=== PATIENT | female | born 1965 | race Caucasian/White ===

== ENCOUNTER 2023-05-11 16:20 | Emergency (ER) | payer OTHER, MEDICARE, SELFPAY ==
[2023-05-11 16:57] VITALS: BP 140/52; PULSE 77; RESP 18; TEMP 36.4; O2SAT 98; BMI 22.5
--- NOTE | 2023-05-11 17:47 | PC.NURSE ---
Lou self presented to the emergency dept in the context of increased anxiety and OCD type behavior. Lou reports she has been eating very little and she thinks her current Clonazepam dose of 0.5mg PO PRN BID isn't high enough and that she used to take them TID but her doctor isn't in agreement with that dose. Lou was pleasant with changing over and has had no behavioral concerns. Medications locked in locker in sealed bag. Lou is currently resting.
--- NOTE | 2023-05-11 18:07 | PC.NURSE ---
Lou refused 1mg Ativan offered for anxiety. She would like her 0.5mg Clonazepam. MD will be called.
--- NOTE | 2023-05-11 18:16 | ED.PSYCH ---
HPI - Psych General Chief Complaint: Psychiatric Symptoms Stated Complaint: crisis Time Seen by Provider: 05/11/23 16:30 History of Present Illness HPI Narrative: Patient is a 57-year-old female with a history of anxiety depression presented today with having lots of anxiety. It is related to daily living. Patient denies any suicidal homicidal ideation. Attempted to use Klonopin but did not work. Presents to the emergency department for further evaluation. Patient denies any recreational drug use Related Data Home Medications Medication Instructions Recorded Confirmed clonazepam 0.5 mg tablet (Klonopin) 0.5 mg PO BID PRN Anxiety 05/11/23 05/11/23 escitalopram oxalate 20 mg tablet 20 mg PO DAILY 05/11/23 05/11/23 Allergies Allergy/AdvReac Type Severity Reaction Status Date / Time No Known Allergies Allergy Verified 05/11/23 16:42 Review of Systems Review of Systems: No fever no chills no chest pain Yes all other systems are reviewed and are negative PMFSH Past Medical History Source: unable to obtain Onset Date is defined in the Problem List Problems that require an onset date and time if occurred within 24 hrs of arrival to the ED Aortic Dissection and Rupture; Neurologic impairment; Cardiopulmonary Arrest; Endotracheal Intubation; Insertion or Replacement of Mechanical Circulatory Assist Device Social History Social History Advance Directives: No Advance Directives Information Provided: No Physical Exam Vital Signs: Vital Signs: Last Vital Signs Temp 97.5 F 05/11/23 16:57 Pulse 77 05/11/23 16:57 Resp 18 05/11/23 16:57 BP 140/52 H 05/11/23 16:57 Pulse Ox 98 05/11/23 16:57 O2 Del Method Room Air 05/11/23 16:57 BMI result Body Mass Index 22.5 Appearance: Alert. Oriented X3. No acute distress. Eyes: Pupils equal, round and reactive to light. ENT: Pharynx normal. Neck: Normal inspection. Neck supple. No lymph nodes noted. No crepitus CVS: Normal heart rate and rhythm. Pulses normal. Normal S1 and S2 Respiratory: No respiratory distress. Breath sounds normal. No Wheezing. No rales Abdomen: Soft and nontender. No rigidity. No distention. good BS x4 Skin: Skin warm and dry. Normal skin color. Normal skin turgor. Extremities: No lower extremity edema. Neurovascular intact to all extremities. No Lacerations. No Rash Neuro: Oriented X 3. No motor deficit. No sensory deficit. Moving all extermities. No slurred speech. Cranial nerves grossly intact Medications Administered Discontinued Medications Generic Name Dose Route Start Last Admin Trade Name Devinq PRN Reason Stop Dose Admin Lorazepam 1 mg 05/11/23 16:44 05/11/23 18:07 Lorazepam 1 Mg Tablet PO 05/11/23 16:45 Not Given ONCE ONE Medical Decision Making Medical Decision Making [facility] Narrative: Well-appearing no acute distress. Patient's labs are normal. Positive anxiety. Will get patient is evaluated by crisis. Currently in stable condition. Differential Diagnosis Anxiety depression polysubstance abuse Admission/Observation Consideration of admission/observation: Escalation of care including admission/observation considered Lab Data [facility] Lab Attestation statement: I reviewed the patient's lab results. 05/11/23 17:07 05/11/23 17:07 Labs: Lab Results 05/11/23 05/11/23 Range/Units 16:51 17:07 WBC 8.1 (4.8-10.8) X10*3/uL RBC 4.70 (4.20-5.50) X10*6/uL Hgb 14.5 (12.0-16.0) g/dl Hct 43.2 (37.0-47.0) % MCV 91.9 (80.0-98.0) fL MCH 30.9 (27.0-33.0) pg MCHC 33.6 (31.0-35.0) g/dl RDW 13.0 (11.0-16.0) % Plt Count 399 (160-400) X10*3/uL MPV 10.6 (9.4-12.3) fL Immature Gran % (Auto) 0.9 H (0.0-0.4) % Neut % (Auto) 69.3 (45-73) % Lymph % (Auto) 23.9 (20-40) % [place] % (Auto) 5.1 (2-11) % Eos % (Auto) 0.4 (0-4) % Baso % (Auto) 0.4 (0-2) % Lymph # (Auto) 1.9 (1.2-4.9) X10*3/uL [place] # (Auto) 0.4 (0.1-1.2) X10*3/uL Eos # (Auto) 0.0 (0.0-0.4) X10*3/uL Baso # (Auto) 0.0 (0.0-0.2) X10*3/uL Abs Immat Gran (auto) 0.07 H (0.00-0.03) X10*3/uL Absolute Neuts (auto) 5.6 (2.0-8.3) x10*3/uL Absolute Nucleated RBC 0.000 (0.0-0.012) X10*3/uL Nucleated RBC % (auto) 0.0 (0.0-0.2) /100WBC Sodium 143 (135-145) mmol/L Potassium 4.2 (3.3-5.1) mmol/L Chloride 106 (96-108) mmol/L Carbon Dioxide 29 (22-29) mmol/L Anion Gap 12 (12-20) BUN 20 H (9-16) mg/dL Creatinine 0.85 (0.5-1.4) mg/dL Estim Creat Clear Calc 66.5 Estimated GFR > 60 Random Glucose 81 (60-115) mg/dL Calcium 10.4 H (8.4-10.2) mg/dL Urine Color Yellow Urine Appearance Cloudy Urine pH 6.0 (5.0-9.0) Ur Specific [place] 1.015 (1.005-1.025) Urine Protein Negative (Neg-Trace) mg/dL Urine Glucose (UA) Negative (Negative) mg/dL Urine Ketones Negative (Negative) mg/dL Urine Blood Negative (Negative) Urine Nitrite Negative (Negative) Ur Leukocyte Esterase Trace H (Negative) Urine RBC 0-2 (0-2) /HPF Urine WBC 0-5 (0-5) /HPF Ur Squamous Epith Cells 11-20 (0-2) /HPF Urine Bacteria None Seen (None Seen) Hyaline Casts 0-2 (0-2) /LPF Urine Opiates Screen Not Detected (Not Detect) Urine Fentanyl Screen Not Detected (Not Detect) Ur Barbiturates Screen Not Detected (Not Detect) Ur Phencyclidine Scrn Not Detected (Not Detect) Ur Amphetamines Screen Not Detected (Not Detect) U Benzodiazepines Scrn Not Detected (Not Detect) Urine Cocaine Screen Not Detected (Not Detect) U Marijuana (THC) Screen Not Detected (Not Detect) Ethyl Alcohol < 10 mg/dL External Record Review External record reviewed: Inpatient record Chronic Conditions Anxiety depression Discharge Plan Discharge Clinical Impression: Acute anxiety Patient Disposition: Still a Patient Prescriptions: No Action clonazepam [Klonopin] 0.5 mg tablet 0.5 mg PO BID PRN (Reason: Anxiety) escitalopram oxalate 20 mg tablet 20 mg PO DAILY Interventions: [place]-Suicide Risk Severity Scale Last Done: 05/11/23 17:44
== END 2023-05-11 23:23 | disposition home or self-care (01) ==
PROVIDERS: Emergency Provider Emergency Medicine Emergency Medical Services; PCP Internal Medicine
DX: F41.9 Anxiety disorder, unspecified (principal); Z79.899 Other long term (current) drug therapy
CPT/HCPCS: 36415; 80048; 80307; 81001; 85025; 99284; S9485

== ENCOUNTER 2023-05-17 14:02 | Emergency (ER) | payer OTHER, MEDICARE, SELFPAY ==
--- NOTE | 2023-05-17 14:09 | ED_ITS ---
HPI - General Adult General Chief complaint: Psychiatric Symptoms Stated complaint: SI Depression Time Seen by Provider: 05/17/23 14:07 Source: patient Mode of arrival: ambulatory History of Present Illness HPI narrative: 57 yr old female with a history of anxiety, depression and OCD presenting with increased anxiety and OCD symptoms. Patient states that her anxiety has been uncontrolled for the last year. This morning she felt increased anxiety with palpatations. She reached out to a friend to see if she could go over to their house, but the friend refused, causing the patient to come to the ER. She reports that she has a history of depression and disordered eating that had been well controlled up until one year ago. Last year the patient experienced various health issues including a hip replacement, divorce from her of 22 years, a strained relationship with her daughter and the of her cat. Since then the patient has been on Klonapin and Prozac which had managed her symptoms in the past, but failed in this last year. Patient was switched to Lexapro 2 months ago, and reduced to twice a day dosing from three times per day of her Klonapin, and states that her symptoms are still uncontrolled. She has a therapist that she had been seeing regularly up until 1 month ago, but states they are not helping and she stopped going. Patient reports that she sleeps through the night, but will stay in bed longer than she should to avoid the anxiety she feels in the morning. Patient denies SI/HI, fever, chest pain, SOB, nausea, vomiting or constipation. Patient is a daily pack a day smoker. Denies alcohol or illicit drug use. Patient was last seen in the ED for anxiety on 05/11/23 for anxiety and was provided resources for a new therapist at that time. Patient states that she feels that her anxiety is preventing her from being able to take care of herself. Related Data Home Medications Medication Instructions Recorded Confirmed clonazepam 0.5 mg tablet (Klonopin) 0.5 mg PO BID PRN Anxiety 05/11/23 05/17/23 escitalopram oxalate 20 mg tablet 20 mg PO DAILY 05/11/23 05/17/23 Allergies Allergy/AdvReac Type Severity Reaction Status Date / Time No Known Allergies Allergy Verified 05/17/23 18:37 Review of Systems 2 Review of Systems: Constitutional : No Weight loss, No Fever, No Chills, No Fatigue, No Malaise Cardiovascular : No Chest Pain, No SOB, No Dyspnea on Exertion, No Orthopnea, No Edema, No Palpitations Respiratory : No Cough, No Sputum, No Wheezing Gastrointestinal : + diarrhea. No Nausea, No Vomiting No Constipation, No abdominal Pain, No Hematochezia, No Melena Genitourinary : No Dysuria, No Urinary Frequency, No Hematuria, Musculoskeletal : No joint pain, No Myalgias, No Joint Swelling Skin : No Skin Lesions, No rash Neuro : No Weakness, No Numbness, No Dizziness, No Headache Psych : +anxiety, depression. No suicidal ideation or homicidal ideation Heme/Lymph: No Bruising, No Bleeding,No Lymphadenopathy All other systems reviewed and are negative Yes all other systems are reviewed and are negative [facility] Past Medical History Attestation statement: The following information was validated with the patient. Source: old records reviewed and nursing notes reviewed Onset Date is defined in the Problem List Problems that require an onset date and time if occurred within 24 hrs of arrival to the ED Aortic Dissection and Rupture; Neurologic impairment; Cardiopulmonary Arrest; Endotracheal Intubation; Insertion or Replacement of Mechanical Circulatory Assist Device Social History Social History Smoked in Last 30 Days: Yes Use of substances other than those prescribed or required for medical reasons: No Advance Directives: No Patient : No Physical Exam ED Vital Signs: Vital Signs - 24 hr 05/17/23 14:33 05/17/23 17:37 Temperature 97.6 F Pulse Rate 81 Respiratory Rate 16 12 Blood Pressure 135/63 Pulse Oximetry 97 Oxygen Delivery Method Room Air BMI result Body Mass Index 22.5 vss Appearance: Alert.? Oriented X3.? No acute distress.? Head: Normocephalic, atraumatic, no step-offs or deformities Eyes: Pupils equal, round and reactive to light.? ENT: Pharynx normal.??External ears normal, TMs normal bilaterally and EAC's normal. No pain with manipulation of external ears bilaterally. No mastoid tenderness. Neck: Normal inspection.? Neck supple.? CVS: Normal heart rate and rhythm.? Pulses normal.? Respiratory: No respiratory distress.? Breath sounds normal.? Abdomen: Soft and nontender.? Skin: Skin warm and dry.? Normal skin color.? Normal skin turgor.? Extremities: No lower extremity edema.? No calf ttp. 5/5 strength to bilateral upper and lower extremities Back: No midline tenderness, no C-spine tenderness, full range of motion, no CVA tenderness bilaterally Neuro: Oriented X 3.? No motor deficit.? No sensory deficit. CN 2-12 intact Psych: Speech and movement normal. Anxious affect. Cooperative attitude. Normal thought process. No delusions, SI/HI. Insight and judgment are fair. Course Reevaluation(s) Reevaluation #1: CBC unremarkable. Chemistry no acute findings. UA clean. U tox clean. Etthanol negative. COVID negative. Time: 16:23 Reevaluation #2: I did re-evaluate patient she does now report intermittent suicidal thoughts. Patient to be seen by care team. She should not leave until she is seen by them. Time: 16:30 Reevaluation #3: Patient was seen by the care team. Patient was seen here last week and was given extensive list of outpatient referrals. Care team also discussed other options including voluntary inpatient psychiatric services, outpatient, or respit, patient refused all resources and will follow-up outpatient. She has no SI or HI. She has no acute risk per care team. Patient stable for discharge. Time: 19:32 Medications Administered Generic Name Dose Route Start Last Admin Trade Name Freq PRN Reason Stop Dose Admin Clonazepam 0.5 mg 05/17/23 18:46 05/17/23 19:25 Clonazepam 0.5 Mg Tablet PO 0.5 mg BID PRN Administration Anxiety Medical Decision Making Medical Decision Making [facility] Narrative: 57 yr old female with a history of anxiety and depression presenting with increased anxiety. PE significant for anxiety, depression, and obsessive behaviors. Most likely panic vs anxiety vs depression. Low suspicion for metabolic derangements or cardiac etiology. And medical clearance evaluation by behavioral health team Differential Diagnosis Differential Diagnoses: The differential diagnosis associated with the presentation includes Most likely panic vs anxiety vs depression. Low suspicion for metabolic derangements or cardiac etiology. Admission/Observation Consideration of admission/observation: Escalation of care including admission/observation considered Consult Healthcare Provider Management of the patient was discussed with: Behavioral Health Provider Lab Data [facility] Lab Attestation statement: I reviewed the patient's lab results. CBC and CMP within normal limits. UA negative. Urine tox negative. 05/17/23 14:53 01/09/24 14:53 Labs: Lab Results 05/17/23 05/17/23 Range/Units 14:29 14:53 WBC 8.1 (4.8-10.8) X10*3/uL RBC 4.58 (4.20-5.50) X10*6/uL Hgb 14.1 (12.0-16.0) g/dl Hct 42.1 (37.0-47.0) % MCV 91.9 (80.0-98.0) fL MCH 30.8 (27.0-33.0) pg MCHC 33.5 (31.0-35.0) g/dl RDW 12.8 (11.0-16.0) % Plt Count 351 (160-400) X10*3/uL MPV 10.3 (9.4-12.3) fL Immature Gran % (Auto) 0.2 (0.0-0.4) % Neut % (Auto) 72.6 (45-73) % Lymph % (Auto) 21.5 (20-40) % [place] % (Auto) 5.3 (2-11) % Eos % (Auto) 0.2 (0-4) % Baso % (Auto) 0.2 (0-2) % Lymph # (Auto) 1.7 (1.2-4.9) X10*3/uL [place] # (Auto) 0.4 (0.1-1.2) X10*3/uL Eos # (Auto) 0.0 (0.0-0.4) X10*3/uL Baso # (Auto) 0.0 (0.0-0.2) X10*3/uL Abs Immat Gran (auto) 0.02 (0.00-0.03) X10*3/uL Absolute Neuts (auto) 5.8 (2.0-8.3) x10*3/uL Absolute Nucleated RBC 0.000 (0.0-0.012) X10*3/uL Nucleated RBC % (auto) 0.0 (0.0-0.2) /100WBC Sodium 141 (135-145) mmol/L Potassium 4.1 (3.3-5.1) mmol/L Chloride 107 (96-108) mmol/L Carbon Dioxide 28 (22-29) mmol/L Anion Gap 10 L (12-20) BUN 19 H (9-16) mg/dL Creatinine 0.81 (0.5-1.4) mg/dL Estim Creat Clear Calc 69.7 Estimated GFR > 60 Random Glucose 104 (60-115) mg/dL Lactic Acid 1.1 (0.5-2.0) mmol/L Calcium 10.0 (8.4-10.2) mg/dL Magnesium 2.1 (1.6-2.6) mg/dL Total Bilirubin 0.3 (0.0-1.0) mg/dL AST 19 (5-31) U/L ALT 15 (0-31) U/L Alkaline Phosphatase 65 (39-117) U/L Total Protein 7.7 (6.5-8.0) g/dL Albumin 4.4 (3.5-5.0) g/dL Urine Color Yellow Urine Appearance Clear Urine pH 6.0 (5.0-9.0) Ur Specific [place] 1.020 (1.005-1.025) Urine Protein Negative (Neg-Trace) mg/dL Urine Glucose (UA) Negative (Negative) mg/dL Urine Ketones Negative (Negative) mg/dL Urine Blood Negative (Negative) Urine Nitrite Negative (Negative) Ur Leukocyte Esterase Negative (Negative) Urine Opiates Screen Not Detected (Not Detect) Urine Fentanyl Screen Not Detected (Not Detect) Ur Barbiturates Screen Not Detected (Not Detect) Ur Phencyclidine Scrn Not Detected (Not Detect) Ur Amphetamines Screen Not Detected (Not Detect) U Benzodiazepines Scrn Not Detected (Not Detect) Urine Cocaine Screen Not Detected (Not Detect) U Marijuana (THC) Screen Not Detected (Not Detect) Ethyl Alcohol < 10 mg/dL COVID-19 ([facility]) Negative (Negative) COVID-19 Clin Com See Note External Record Review External record reviewed: Inpatient record Critical Care Time Critical Care Time Critical Care Time: No Discharge Plan Discharge Clinical Impression: Acute anxiety, Depression Patient Disposition: Still a Patient Additional Instructions: Please continue working with your psychiatrist. Please utilize all resources that were provided to you by the crisis and care team. Please continue taking all your prescribed medications. If any new or worsening symptoms occur including but not limited to chest pain, shortness of breath, thoughts of harming herself or others, please return to the emergency room. Prescriptions: No Action clonazepam [Klonopin] 0.5 mg tablet 0.5 mg PO BID PRN (Reason: Anxiety) escitalopram oxalate 20 mg tablet 20 mg PO DAILY Interventions: [place]-Suicide Risk Severity Scale Last Done: 05/17/23 14:39
[2023-05-17 14:33] VITALS: BP 135/63; PULSE 81; RESP 16; TEMP 36.4; O2SAT 97; BMI 22.5
[2023-05-17 14:36] LABS: Appearance Urine Clear; Color Urine Yellow; Glucose Urine UA Negative (Negative); Leukocyte Esterase Urine Negative (Negative); Nitrite Urine Negative (Negative); Urine Blood Negative (Negative); Urine Ketones Negative (Negative); Urine Protein Negative (Neg-Trace)
[2023-05-17 14:44] LABS: Amphetamine Screen Urine Not Detected (Not Detect); Barbiturates, Urine Not Detected (Not Detect); Benzodiazepines Screen Urine Not Detected (Not Detect); Cannabinoid Screen Urine Not Detected (Not Detect); Cocaine Screen Urine Not Detected (Not Detect); Fentanyl, urine Not Detected (Not Detect); Opiate Screen Urine Not Detected (Not Detect); Phencyclidine Screen Urine Not Detected (Not Detect)
[2023-05-17 14:58] LABS: MANUAL DIFF FLAG NO
[2023-05-17 15:01] LABS: Basophils Percent Auto 0.2 % (0-2); Eosinophils Percent Auto 0.2 % (0-4); Hematocrit 42.1 % (37.0-47.0); Hemoglobin 14.1 g/dl (12.0-16.0); Imm Gran Abs Auto 0.02 X10*3/uL (0.00-0.03); Imm Gran Pct Auto 0.2 % (0.0-0.4); Lymphocytes Absolute Auto 1.7 X10*3/uL (1.2-4.9); Lymphocytes Percent Auto 21.5 % (20-40); Mean Corpuscular HGB Conc 33.5 g/dl (31.0-35.0); Mean Corpuscular Hemoglobin 30.8 pg (27.0-33.0); Mean Corpuscular Volume 91.9 fL (80.0-98.0); Mean Platelet Volume 10.3 fL (9.4-12.3); Monocytes Absolute Auto 0.4 X10*3/uL (0.1-1.2); Monocytes Percent Auto 5.3 % (2-11); Neutrophils Absolute Auto 5.8 x10*3/uL (2.0-8.3); Neutrophils Percent Auto 72.6 % (45-73); Platelet Count 351 X10*3/uL (160-400); Red Blood Count 4.58 X10*6/uL (4.20-5.50); Red Cell Distribution Width 12.8 % (11.0-16.0); White Blood Count 8.1 X10*3/uL (4.8-10.8)
[2023-05-17 15:14] LABS: Lactic Acid 1.1 mmol/L (0.5-2.0)
[2023-05-17 15:20] LABS: COVID-19 Test Negative (Negative); IDNOW Serial# 08D9AD1C
[2023-05-17 15:22] LABS: Alanine Aminotransferase 15 U/L (0-31); Albumin Level 4.4 g/dL (3.5-5.0); Alkaline Phosphatase 65 U/L (39-117); Anion Gap 10 (12-20); Aspartate Amino Transferase 19 U/L (5-31); Bilirubin Total 0.3 mg/dL (0.0-1.0); Blood Urea Nitrogen 19 mg/dL (9-16); Carbon Dioxide 28 mmol/L (22-29); Chloride 107 mmol/L (96-108); Creatinine Clr Calc Pharmacy 69.7; Estimated Glomerular Filt Rate > 60; Ethanol < 10 mg/dL; Glucose Random 104 mg/dL (60-115); Magnesium 2.1 mg/dL (1.6-2.6); Potassium 4.1 mmol/L (3.3-5.1); Sodium 141 mmol/L (135-145); Total Protein 7.7 g/dL (6.5-8.0)
[2023-05-17 17:37] VITALS: RESP 12
--- NOTE | 2023-05-17 19:08 | PC.NURSE ---
patient appears to remain relaxing at present respirations are even and unlabored patient appears in no distress, upon arrival to the unit patient seated in milieu.
[2023-05-17] MEDS: clonazePAM 0.5 MG TABLET PO (19:25)
== END 2023-05-17 20:08 | disposition home or self-care (01) ==
PROVIDERS: Physician Assistant; Emergency Provider Emergency Medicine Emergency Medical Services; PCP Internal Medicine
DX: F33.1 Major depressive disorder, recurrent, moderate (principal); R45.851 Suicidal ideations; F41.1 Generalized anxiety disorder; F43.0 Acute stress reaction; Z79.899 Other long term (current) drug therapy; Z11.52 Encounter for screening for COVID-19; Z20.822 Contact with and (suspected) exposure to COVID-19
CPT/HCPCS: 36415; 80053; 80307; 81003; 83605; 83735; 85025; 87635; 99285; S9485

== ENCOUNTER 2023-07-17 14:55 | Inpatient (IN) | payer OTHER, SELFPAY ==
[2023-07-17 15:01] VITALS: BP 141/46; PULSE 77; RESP 16; TEMP 36.6; O2SAT 95
[2023-07-17 15:03] VITALS: BP 136/70; BP 141/76; PULSE 71; PULSE 81; RESP 16; TEMP 36.6; O2SAT 95; O2SAT 98; BMI 22.5
--- NOTE | 2023-07-17 15:14 | PC.NURSE ---
Patient presents to the ED today requesting help with medications. She reports she feels as though her medications are not working and therefore is having increasing suicidal thoughts. Pt denies plan at this time. Patient reports she is on Clonazepam and Prozac, she reports she just started the Prozac recently but has been on the Clonazepam for a while. She feels as thought the Clonazepam is no longer working. Patient denies medical concerns at this time, respirations are even and unlabored, skin pwd, alert and oriented x4, ambulating with steady gait around BH pod at this time
--- NOTE | 2023-07-17 15:35 | ED_ITS ---
HPI - Psych General Chief Complaint: Psychiatric Symptoms Stated Complaint: SI THOUGHTS,NO PLAN PER EMS Time Seen by Provider: 07/17/23 15:07 Source: patient Mode of arrival: EMS Limitations: no limitations History of Present Illness HPI Narrative: Patient is a 58-year-old female who presents emergency department for evaluation of increasing anxiety, depression, OCD type behaviors. Endorsing suicidal ideations without any specific plan. She expresses feeling frustrated no overall defeated waking up daily feeling this way. She does not feel as though her medications are helping, she has had recent dosage changes reports that she is taking clonazepam 0.5 mg twice a day, escitalopram 20 mg daily, fluoxetine 20 mg daily with psychiatrist La Jara. She expresses frustration that her psychiatrist will not prescribe her clonazepam 3 times daily, she states that she was taking it 3 times daily in the past and felt that this did help her symptoms. She does report that she was seen in this emergency department in May 2023 and has since been evaluated by and [facility] a couple of times but feels as though nothing is improving. She denies any homicidal ideations, hallucinations, drug or alcohol usage. Related Data Home Medications Medication Instructions Recorded Confirmed clonazepam 0.5 mg tablet (Klonopin) 0.5 mg PO BID PRN Anxiety 05/11/23 07/17/23 fluoxetine 20 mg capsule 20 mg PO DAILY 07/17/23 07/17/23 Allergies Allergy/AdvReac Type Severity Reaction Status Date / Time No Known Allergies Allergy Verified 07/17/23 15:13 Review of Systems 2 Review of Systems: Yes all other systems are reviewed and are negative [facility] Past Medical History Attestation statement: The following information was validated with the patient. Source: old records reviewed Family History Family History (Updated 07/17/23 @ 20:29 by BRADLEY Rowe) Brother Bipolar disorder, unspecified Psychosis Social History Social History (Updated 07/17/23 @ 20:31 by BRADLEY Rowe) Alcohol intake: never Smoked in Last 30 Days: Yes Use of substances other than those prescribed or required for medical reasons: No Advance Directives: No Advance Directives Information Provided: No Suicidal Behavior: Pre-occupation with and Self-injurious behavior Current/Past Psychiatric Disorders: PTSD Joseph Symptoms: Anxiety, Hopelessness, Impulsivity, Panic and Worthlessness Access to Firearms: No Eating poorly because of decreased appetite: Yes Patient : No Current occupational status: unemployed Gender identity: Female Physical Exam 2 Vital Signs: Vital Signs: Last Vital Signs Temp 97.4 F 07/18/23 05:21 Pulse 62 07/18/23 05:21 Resp 16 07/18/23 05:21 BP 136/69 07/18/23 05:21 Pulse Ox 95 07/18/23 05:21 O2 Del Method Room Air 07/18/23 05:21 BMI result Body Mass Index 22.5 Appearance: Alert.?Oriented to person, place and time. No acute distress.?Normal affect. Eyes: Pupils equal, round and reactive to light.? ENT: Pharynx normal.?? Neck: Normal inspection.? Neck supple.?? CVS: Heart sounds normal. Normal heart rate and rhythm.? Pulses normal.?? Respiratory: No respiratory distress.? Lung sounds clear to auscultation bilaterally?? Abdomen: Soft and non-tender. Normoactive bowel sounds. ? Skin: Skin warm and dry.? Normal skin color.? Extremities: No lower extremity edema.? No calf ttp? Neuro: Moves all extremities spontaneously. Sensation intact bilaterally. CN II- XII intact. No focal neuro deficits. Ambulates with normal steady gait. Course Reevaluation(s) Reevaluation #1: Physician observation continued. VS stable, no acute events overnight, inpatient bed search. Medications Administered Generic Name Dose Route Start Last Admin Trade Name Freq PRN Reason Stop Dose Admin Clonazepam 0.5 mg 07/17/23 19:28 07/17/23 19:32 Clonazepam 0.5 Mg Tablet PO 0.5 mg BID PRN Administration Anxiety Fluoxetine HCl 20 mg 07/18/23 09:00 07/18/23 08:16 Fluoxetine Hcl 20 Mg Capsule PO 20 mg DAILY KIMI Administration Discontinued Medications Generic Name Dose Route Start Last Admin Trade Name Freq PRN Reason Stop Dose Admin Nicotine 21 mg 07/17/23 19:28 07/17/23 19:32 Nicotine 21 Mg Patch.Td24 TRANSDERMA 07/17/23 19:29 21 mg ONCE ONE Administration Medical Decision Making Medical Decision Making MDM Narrative: Patient is a 58-year-old female past medical history anxiety, depression, OCD, presenting to the emergency department for evaluation suicidal ideations without any specific. Denies any acute changes life stressors but just feels exhausted of waking up daily feeling suicidal and does not pose a her medications are helping her. She is calm and cooperative at the time my examination, denying homicidal ideations or hallucinations. Reports that she has been compliant with the current medication regimen continues to feel this way. Plan to obtain basic labs for medical clearance, and she will be placed in physician observation with the care team evaluation can ensue determination as to whether inpatient psychiatric services and be warranted at this time. 19:00: Patient was evaluated by the care team. Recommendations: Inpatient bed search patient is on a Section 12. Differential Diagnosis Differential Diagnoses: The differential diagnosis associated with the presentation includes (Anxiety, depression, OCD, suicidal ideation) Admission/Observation Consideration of admission/observation: Escalation of care including admission/observation considered (See narrative above) Consult Healthcare Provider Management of the patient was discussed with: Behavioral Health Provider (Care team) Lab Data MDM Lab Attestation statement: I reviewed the patient's lab results. No leukocytosis or anemia, unremarkable CBC. CMP overall unremarkable. 07/17/23 15:40 07/17/23 15:40 Labs: Lab Results 07/17/23 07/17/23 Range/Units 15:40 17:12 WBC 7.6 (4.8-10.8) X10*3/uL RBC 4.50 (4.20-5.50) X10*6/uL Hgb 14.0 (12.0-16.0) g/dl Hct 40.8 (37.0-47.0) % MCV 90.7 (80.0-98.0) fL MCH 31.1 (27.0-33.0) pg MCHC 34.3 (31.0-35.0) g/dl RDW 13.0 (11.0-16.0) % Plt Count 330 (160-400) X10*3/uL MPV 10.3 (9.4-12.3) fL Immature Gran % (Auto) 0.3 (0.0-0.4) % Neut % (Auto) 66.9 (45-73) % Lymph % (Auto) 24.7 (20-40) % [place] % (Auto) 7.3 (2-11) % Eos % (Auto) 0.4 (0-4) % Baso % (Auto) 0.4 (0-2) % Lymph # (Auto) 1.9 (1.2-4.9) X10*3/uL [place] # (Auto) 0.6 (0.1-1.2) X10*3/uL Eos # (Auto) 0.0 (0.0-0.4) X10*3/uL Baso # (Auto) 0.0 (0.0-0.2) X10*3/uL Abs Immat Gran (auto) 0.02 (0.00-0.03) X10*3/uL Absolute Neuts (auto) 5.1 (2.0-8.3) x10*3/uL Absolute Nucleated RBC 0.000 (0.0-0.012) X10*3/uL Nucleated RBC % (auto) 0.0 (0.0-0.2) /100WBC Sodium 143 (135-145) mmol/L Potassium 4.0 (3.3-5.1) mmol/L Chloride 107 (96-108) mmol/L Carbon Dioxide 26 (22-29) mmol/L Anion Gap 14 (12-20) BUN 21 H (9-16) mg/dL Creatinine 0.80 (0.5-1.4) mg/dL Estim Creat Clear Calc 69.8 Estimated GFR > 60 Random Glucose 99 (60-115) mg/dL Calcium 9.9 (8.4-10.2) mg/dL Total Bilirubin 0.4 (0.0-1.0) mg/dL AST 19 (5-31) U/L ALT 17 (0-31) U/L Alkaline Phosphatase 66 (39-117) U/L Total Protein 7.2 (6.5-8.0) g/dL Albumin 4.2 (3.5-5.0) g/dL Urine Color Yellow Urine Appearance Cloudy Urine pH 7.0 (5.0-9.0) Ur Specific [place] 1.020 (1.005-1.025) Urine Protein Negative (Neg-Trace) mg/dL Urine Glucose (UA) Negative (Negative) mg/dL Urine Ketones Negative (Negative) mg/dL Urine Blood Negative (Negative) Urine Nitrite Negative (Negative) Ur Leukocyte Esterase Moderate (2+) H (Negative) Urine RBC 0-2 (0-2) /HPF Urine WBC 0-5 (0-5) /HPF Ur Squamous Epith Cells >20 (0-2) /HPF Urine Bacteria Trace (None Seen) Hyaline Casts 0-2 (0-2) /LPF Urine Opiates Screen Not Detected (Not Detect) Urine Fentanyl Screen Not Detected (Not Detect) Ur Barbiturates Screen Not Detected (Not Detect) Ur Phencyclidine Scrn Not Detected (Not Detect) Ur Amphetamines Screen Not Detected (Not Detect) U Benzodiazepines Scrn Not Detected (Not Detect) Urine Cocaine Screen Not Detected (Not Detect) U Marijuana (THC) Screen Not Detected (Not Detect) Ethyl Alcohol < 10 mg/dL COVID-19 (VIKTOR) Negative (Negative) COVID-19 Clin Com See Note Independent Historian Clinical information obtained from an independent historian. History obtained from or confirmed by: EMS Discharge Plan Discharge Clinical Impression: Suicidal ideation Patient Disposition: Still a Patient Prescriptions: No Action clonazepam [Klonopin] 0.5 mg tablet 0.5 mg PO BID PRN (Reason: Anxiety) fluoxetine 20 mg capsule 20 mg PO DAILY Interventions: [place]-Suicide Risk Severity Scale Last Done: 07/18/23 07:00
[2023-07-17 15:44] LABS: MANUAL DIFF FLAG NO
[2023-07-17 15:46] LABS: Basophils Percent Auto 0.4 % (0-2); Eosinophils Percent Auto 0.4 % (0-4); Hematocrit 40.8 % (37.0-47.0); Imm Gran Abs Auto 0.02 X10*3/uL (0.00-0.03); Imm Gran Pct Auto 0.3 % (0.0-0.4); Lymphocytes Absolute Auto 1.9 X10*3/uL (1.2-4.9); Lymphocytes Percent Auto 24.7 % (20-40); Mean Corpuscular HGB Conc 34.3 g/dl (31.0-35.0); Mean Corpuscular Hemoglobin 31.1 pg (27.0-33.0); Mean Corpuscular Volume 90.7 fL (80.0-98.0); Mean Platelet Volume 10.3 fL (9.4-12.3); Monocytes Absolute Auto 0.6 X10*3/uL (0.1-1.2); Monocytes Percent Auto 7.3 % (2-11); Neutrophils Absolute Auto 5.1 x10*3/uL (2.0-8.3); Neutrophils Percent Auto 66.9 % (45-73); Platelet Count 330 X10*3/uL (160-400); White Blood Count 7.6 X10*3/uL (4.8-10.8)
[2023-07-17 16:06] LABS: Alanine Aminotransferase 17 U/L (0-31); Albumin Level 4.2 g/dL (3.5-5.0); Alkaline Phosphatase 66 U/L (39-117); Anion Gap 14 (12-20); Aspartate Amino Transferase 19 U/L (5-31); Bilirubin Total 0.4 mg/dL (0.0-1.0); Blood Urea Nitrogen 21 mg/dL (9-16); Calcium 9.9 mg/dL (8.4-10.2); Carbon Dioxide 26 mmol/L (22-29); Chloride 107 mmol/L (96-108); Creatinine Clr Calc Pharmacy 69.8; Estimated Glomerular Filt Rate > 60; Ethanol < 10 mg/dL; Glucose Random 99 mg/dL (60-115); Sodium 143 mmol/L (135-145); Total Protein 7.2 g/dL (6.5-8.0)
[2023-07-17 16:16] LABS: COVID-19 Test Negative (Negative); IDNOW Serial# 08D9AD1C
[2023-07-17 17:19] LABS: Appearance Urine Cloudy; Color Urine Yellow; Glucose Urine UA Negative (Negative); Leukocyte Esterase Urine Moderate (2+) (Negative); Nitrite Urine Negative (Negative); UMIC TRIGGER UACC YES; Urine Blood Negative (Negative); Urine Ketones Negative (Negative); Urine Protein Negative (Neg-Trace)
[2023-07-17 17:25] LABS: Amphetamine Screen Urine Not Detected (Not Detect); Bacteria Urine Trace (None Seen); Barbiturates, Urine Not Detected (Not Detect); Benzodiazepines Screen Urine Not Detected (Not Detect); Cannabinoid Screen Urine Not Detected (Not Detect); Cocaine Screen Urine Not Detected (Not Detect); Fentanyl, urine Not Detected (Not Detect); Hyaline Casts Urine 0-2 /LPF (0-2); Opiate Screen Urine Not Detected (Not Detect); Phencyclidine Screen Urine Not Detected (Not Detect); RBC Urine 0-2 /HPF (0-2); Squamous Epithelial Cell Urine >20 /HPF (0-2); WBC Urine 0-5 /HPF (0-5)
[2023-07-17] MEDS: clonazePAM 0.5 MG TABLET PO (19:32)
[2023-07-17] MEDS: Nicotine 21 MG PATCH.TD24 TRANSDERMA (19:32)
--- NOTE | 2023-07-17 20:43 | MHC.CARE ---
CARE Team evaluation complete. Pt is an inpatient bedsearch. Pt is agreeable to this plan and is on a section 12A for safety. ED provider and POD RN are aware of disposition.
--- NOTE | 2023-07-17 21:24 | PC.NURSE ---
patient appeared in no distress soon after t/w arrived to unit, requested a nicotine patch and soon thereafter adjourned to couch to relax.
--- NOTE | 2023-07-18 | ECG_ITS ---
Test Reason : MEDICAL CLEARENCE Blood Pressure : / mmHG Vent. Rate : 063 BPM Atrial Rate : 063 BPM P-R Int : 140 ms QRS Dur : 080 ms QT Int : 428 ms P-R-T Axes : -01 103 055 degrees QTc Int : 437 ms Normal sinus rhythm Rightward axis Cannot rule out Anterior infarct , age undetermined Abnormal ECG No previous ECGs available Referred By: Alyson Gomez Electronically Signed By:TROY JANE MD
[2023-07-18 05:21] VITALS: BP 136/69; PULSE 62; RESP 16; TEMP 36.3; O2SAT 95
--- NOTE | 2023-07-18 07:02 | PC.NURSE ---
Assumed care of patient at 0645, patient appears to be sleeping, respirations even and unlabored, no apparent distress noted. Continue plan of care for Sec 12, inpt bedsearch
[2023-07-18] MEDS: FLUoxetine HCl 20 MG CAPSULE PO (08:16)
[2023-07-18] MEDS: clonazePAM 0.5 MG TABLET PO ×2 (09:43→20:04)
[2023-07-18] MEDS: Nicotine 21 MG PATCH.TD24 TRANSDERMA (10:47)
[2023-07-18 14:45] VITALS: BP 142/68; PULSE 62; RESP 16; TEMP 36.4; O2SAT 100
[2023-07-18 14:46] VITALS: BMI 22.5
--- NOTE | 2023-07-18 16:13 | MHC.CLN ---
NUTRITION CONSULT FOR REPORTED POOR APPETITE X ONE MONTH, TAKING SUPPLEMENTS ONLY. DIET=REGULAR. INCREASING SUPPLEMENT TO ENSURE TID. PROVIDES 10[address], [address] TO MONITOR FOR PO INTAKE OF MEALS AND SUPPLEMENT.
[2023-07-18] MEDS: hydrOXYzine HCL 25 MG TABLET PO (16:17)
--- NOTE | 2023-07-18 18:25 | PC.ADMIT ---
Loni was admitted to from [facility] ED on 07/18/23 at 14:28 on a CV for the treatment of anxiety and depression. She reports her anxiety has been getting worse and nothing is helping . She reports being started on prozac by her outpatient provider approximately one week ago. She is alert and oriented to person, place, date, and situation. She was cooperative overall with admission process. She made repetitive hand gestures throughout the admission and stated I have OCD . She denies ETOH and substance use. She states she smokes approximately 1.5 packs cigarettes/day. Loni states that over the past two years she has gotten a divorce, moved, lost many family members and a cat, and not been able to work secondary to her mental health issues. She was placed on 5 minute checks for safety.
[2023-07-18 20:00] VITALS: BP 137/72; PULSE 76; RESP 18; TEMP 37; O2SAT 98
[2023-07-19 08:00] LABS: Alanine Aminotransferase 18 U/L (0-31); Albumin Level 3.9 g/dL (3.5-5.0); Alkaline Phosphatase 64 U/L (39-117); Anion Gap 10 (12-20); Aspartate Amino Transferase 24 U/L (5-31); Bilirubin Total 0.6 mg/dL (0.0-1.0); Blood Urea Nitrogen 16 mg/dL (9-16); Calcium 9.5 mg/dL (8.4-10.2); Carbon Dioxide 29 mmol/L (22-29); Chloride 107 mmol/L (96-108); Cholesterol 273 mg/dL (<200); Creatinine Clr Calc Pharmacy 68.9; Estimated Glomerular Filt Rate > 60; Glucose Fasting 75 mg/dL (60-99); HDL Cholesterol 45 mg/dL (>40); LDL Cholesterol Calculated 206 mg/dL (<100); Potassium 4.3 mmol/L (3.3-5.1); Sodium 142 mmol/L (135-145); Total Protein 6.7 g/dL (6.5-8.0); Triglycerides 114 mg/dL (<150)
[2023-07-19 08:18] LABS: Estimated Average Glucose 105 mg/dL; Hemoglobin A1c % 5.3 % (<6.0)
[2023-07-19 08:28] LABS: Folate 14.2 ng/mL (> or = 4.0); Vitamin B12 717 pg/mL (200-900)
[2023-07-19 08:29] VITALS: BP 124/61; PULSE 58; RESP 16; TEMP 36; O2SAT 95
--- NOTE | 2023-07-19 08:40 | HO.PSYADMNOT ---
HPI Date of Service: 07/19/23 Chief Complaint: ANXIETY Sources of Information: patient interviewed, chart reviewed and crisis/core team assessment reviewed HPI Subjective Notes: Crook Warning (given and shows understanding), Conditional Voluntary and 3 Day Narrative: Ms. Vera is a 58 year old woman who self presented to [facility] ED reporting increase anxious mood, restless, ocd, affecting her ability to function and causing significant distress. She denied SI/HI. Utox was negative. On the unit, pt presents as restless, somewhat irritable. She describes urges to move her eyebrows with periods of blinking, tapping fingers and moving wrist. She describes an urge to do these movement and is able to suppress them temporarily but suppression leads to increase urges to do the movement. Pt reports feeling embarrassed at times doing the movement in public. 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 She reports increased anxious mood. She also reports depressed mood in setting in multiple stressors including financial, lack of social supports and recent losses in her life. She denies suicidal or homicidal ideation. She denies hx of or current visual or auditory hallucinations. No signs of delusions. She denies hx of suicide attempts. Past Psychiatric History: Inpt: none prior OP: La Jara NP. Past medication trials: prozac, clonazepam. Medical Evaluation Reviewed: Yes PMF Social History: Pt is . No children. She lives alone. 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 Substance History: pt reports remote history of cocaine use Pt reports alcohol use until few years ago She denies opioid use Trauma History: not disclose Diagnostics Vital Signs (24Hr): Vital Signs - 24 hr 07/18/23 14:45 07/18/23 20:00 07/19/23 08:29 Temperature 97.5 F 98.6 F 96.8 F Pulse Rate 62 76 58 Respiratory Rate 16 18 16 Blood Pressure 142/68 H 137/72 124/61 Pulse Oximetry 100 98 95 Oxygen Delivery Method Room Air Room Air Room Air BMI result Body Mass Index 22.5 Labs 07/17/23 15:40 07/19/23 07:22 Labs: Laboratory Results - last 48 hr 07/17/23 07/17/23 07/19/23 15:40 17:12 07:22 WBC 7.6 RBC 4.50 Hgb 14.0 Hct 40.8 MCV 90.7 MCH 31.1 MCHC 34.3 RDW 13.0 Plt Count 330 MPV 10.3 Immature Gran % (Auto) 0.3 Neut % (Auto) 66.9 Lymph % (Auto) 24.7 Delta % (Auto) 7.3 Eos % (Auto) 0.4 Baso % (Auto) 0.4 Lymph # (Auto) 1.9 [place] # (Auto) 0.6 Eos # (Auto) 0.0 Baso # (Auto) 0.0 Abs Immat Gran (auto) 0.02 Absolute Neuts (auto) 5.1 Absolute Nucleated RBC 0.000 Nucleated RBC % (auto) 0.0 Sodium 143 142 Potassium 4.0 4.3 Chloride 107 107 Carbon Dioxide 26 29 Anion Gap 14 10 L BUN 21 H 16 Creatinine 0.80 0.81 Estim Creat Clear Calc 69.8 68.9 Estimated GFR > 60 > 60 Random Glucose 99 Fasting Glucose 75 Estimat Average Glucose 105 Hemoglobin A1c % 5.3 Calcium 9.9 9.5 Total Bilirubin 0.4 0.6 AST 19 24 ALT 17 18 Alkaline Phosphatase 66 64 Total Protein 7.2 6.7 Albumin 4.2 3.9 Triglycerides 114 Cholesterol 273 H LDL Cholesterol, Calc 206 H HDL Cholesterol 45 Vitamin B12 717 Folate 14.2 TSH 0.90 Urine Color Yellow Urine Appearance Cloudy Urine pH 7.0 Ur Specific [place] 1.020 Urine Protein Negative Urine Glucose (UA) Negative Urine Ketones Negative Urine Blood Negative Urine Nitrite Negative Ur Leukocyte Esterase Moderate (2+) H Urine RBC 0-2 Urine WBC 0-5 Ur Squamous Epith Cells >20 Urine Bacteria Trace Hyaline Casts 0-2 Urine Opiates Screen Not Detected Urine Fentanyl Screen Not Detected Ur Barbiturates Screen Not Detected Ur Phencyclidine Scrn Not Detected Ur Amphetamines Screen Not Detected U Benzodiazepines Scrn Not Detected Urine Cocaine Screen Not Detected U Marijuana (THC) Screen Not Detected Ethyl Alcohol < 10 COVID-19 ([facility]KTOR) Negative COVID-19 Clin Com See Note Meds/Allergies Meds Home Medications Medication Instructions Recorded Confirmed Type clonazepam 0.5 mg tablet (Klonopin) 0.5 mg PO BID PRN Anxiety 05/11/23 07/17/23 History Allergies Allergies Allergy/AdvReac Type Severity Reaction Status Date / Time No Known Allergies Allergy Verified 07/17/23 15:13 Mental Status Exam Mental Status Exam Narrative: Appearance: wearing hospital gown, fair hygiene, in NAD Behavior:irritable and guarded Psychomotor:intermittent blinking, tapping fingers, raising eye brows Speech: clear, normal rate/rhythm/volume, spontaneous TP: tangential at times TC: overwhelmed with urges to make movement Mood: not well Affect:restless, irritable SI: denies HI: denies VH/AH: none Delusions: none Insight/judgment: poor x 2. Memory/cog: alert, oriented x 3. not formally tested. Assessment & Plan Assessment & Plan (1) MDD (major depressive disorder), recurrent episode, moderate: Status: Acute Code(s): F33.1 - Major depressive disorder, recurrent, moderate (2) Motor tic disorder: Status: Acute Code(s): F95.8 - Other tic disorders Plan Ms. Vera is a 58 year-old woman who self presented to [facility] ED reports increase urges to move eyebrows, blinking, tapping fingers. Preoccupation is with urges to do movement (which seem to be motor tics), not with obsessive thoughts. There are premonitory urges prior to motor tic that cause significant emotional distress and anxious and restless mood, but these symptoms seem to be primarily from movement disorder/complex motor disorder. She reports having these symptoms initially 20 year ago. Typically onset of tic disorder earlier in life but there are adult onset sometimes related to cocaine use, trauma or other causes. We discussed treating tics with combination of antipsychotic, risperidone and alpha adrenergic medication like clonidine. PLAN 1. Admit to , CV, 3 day, 15 minutes checks. 2. start risperidone 0.5mg po TID, clonidine 0.1mg po BID, continue clonazepam. continue prozac 3. Obtain collateral information 4. Aftercare planning Patient educated on: diagnosis and medication risk/benefits Informed Consent: understands Reason for continued inpatient stay Substantial Risk for: inability to function Statement Statement: I have reviewed the history and physical and performed a pertinent examination on my patient. No changes have occurred unless specified. If the History and Physical was not performed prior to admission, the Hospitalist's service will be consulted for completing the admission physical. Time Spent With Patient Time: Total time managing care of this patient today _35___ minutes.
[2023-07-19] MEDS: FLUoxetine HCl 20 MG CAPSULE PO (09:36)
[2023-07-19] MEDS: clonazePAM 0.5 MG TABLET PO ×2 (11:45→20:31)
[2023-07-19] MEDS: Nicotine 14 MG PATCH.TD24 TRANSDERMA (13:47)
[2023-07-19] MEDS: risperiDONE 0.5 MG TABLET PO ×2 (15:06→20:29)
[2023-07-19 20:09] VITALS: BP 121/59; PULSE 65; RESP 18; TEMP 36.2; O2SAT 100
[2023-07-19] MEDS: cloNIDine HCL 0.1 MG TABLET PO (20:29)
[2023-07-20 09:02] VITALS: BP 117/56; PULSE 60; RESP 17; TEMP 36.2; O2SAT 97
[2023-07-20] MEDS: Nicotine 14 MG PATCH.TD24 TRANSDERMA (09:08)
[2023-07-20] MEDS: FLUoxetine HCl 20 MG CAPSULE PO (09:08)
[2023-07-20] MEDS: cloNIDine HCL 0.1 MG TABLET PO (09:19)
[2023-07-20] MEDS: clonazePAM 0.5 MG TABLET PO ×2 (09:20→21:09)
--- NOTE | 2023-07-20 13:42 | MHC.CLN ---
F/U OBSERVED AT [facility] TODAY IN DINING ROOM. HOLDING HOT BEVERAGE BUT DID NOT EAT MEAL. CONTINUE REGULAR DIET WITH ENSURE TID. HAD BEEN TAKING SUPPLEMENT PRIOR TO ADM WITH POOR INTAKE OF SOLIDS. RD TO MONITOR FOR PO INTAKE OF MEALS AND SUPPLEMENT.
[2023-07-20] MEDS: risperiDONE 0.5 MG TABLET PO (15:14)
--- NOTE | 2023-07-20 17:03 | HO.PSYCHPN ---
Subjective Subjective Date of Service: 07/20/23 Reason For Visit: ANXIETY Subjective Notes: Conditional Voluntary and 3 Day Interim History: Pt reports and visible notable improvement in frequency and intensity of tics. She reports some improvement in anxious mood. She denies SI/HI. day before she had spend almost all day in bathroom due to urges to do movements. Toay she was sitting in common areas and able to socialize with peers. She reports she does not feel comfortable on the unit, any way and would like to be discharged at end of 3 day notice. She has been sleeping well. She continues to denied SI/HI. She did feel dizzy after taking clonidine. We discussed stopping it as she will be discharged tomorrow. Continue risperidone. This content writer spoke with her OP psych provider La Jara- discussed dx of motor tic disorder rather than a primarily OCD symptomatology as obsession thought preoccupation is not debilitating factor but instead the bodily urges need to do the movements and premonitory urges which do have restless and anxious mood component. we discussed differences in treatment approach as OCD mainly anxiety disorder versus a movement/neurological disorder secondary to disfunction of basal ganglia. Mental Status Exam Mental Status Exam Narrative: Appearance: wearing hospital gown, fair hygiene, in NAD Behavior:less irritable, less guarded Psychomotor:intermittent blinking, tapping fingers, raising eye brows Speech: clear, normal rate/rhythm/volume, spontaneous TP: tangential at times TC: overwhelmed with urges to make movement Mood: better Affect:calmer, less irritable and less anxious SI: denies HI: denies VH/AH: none Delusions: none Insight/judgment: poor x 2. Memory/cog: alert, oriented x 3. not formally tested. Diagnostics Vital Signs (24Hr): Vital Signs - 24 hr 07/19/23 20:09 07/20/23 09:02 Temperature 97.2 F 97.2 F Pulse Rate 65 60 Respiratory Rate 18 17 Blood Pressure 121/59 L 117/56 L Pulse Oximetry 100 97 Oxygen Delivery Method Room Air Room Air BMI result Body Mass Index 22.5 Labs 07/17/23 15:40 07/19/23 07:22 Labs: Laboratory Results - last 48 hr 07/19/23 07:22 Sodium 142 Potassium 4.3 Chloride 107 Carbon Dioxide 29 Anion Gap 10 L BUN 16 Creatinine 0.81 Estim Creat Clear Calc 68.9 Estimated GFR > 60 Fasting Glucose 75 Estimat Average Glucose 105 Hemoglobin A1c % 5.3 Calcium 9.5 Total Bilirubin 0.6 AST 24 ALT 18 Alkaline Phosphatase 64 Total Protein 6.7 Albumin 3.9 Triglycerides 114 Cholesterol 273 H LDL Cholesterol, Calc 206 H HDL Cholesterol 45 Vitamin B12 717 Folate 14.2 TSH 0.90 Medications Medications Current Medications Acetaminophen (Acetaminophen 325 Mg Tablet) 650 mg PO Q6H PRN PRN Reason: Headache/Pain Mild Scale (1-3) Al Hydroxide/Mg Hydroxide (Magnesium Hydrox/Alum Hydrox 30 Ml Oral.Susp) 30 ml PO Q6H PRN PRN Reason: Heartburn/Nausea Clonazepam (Clonazepam 0.5 Mg Tablet) 0.5 mg PO BID PRN PRN Reason: Anxiety Last Admin: 07/20/23 09:20 Dose: 0.5 mg Fluoxetine HCl (Fluoxetine Hcl 20 Mg Capsule) 20 mg PO DAILY [facility] Last Admin: 07/20/23 09:08 Dose: 20 mg Hydroxyzine HCl (Hydroxyzine Hcl 25 Mg Tablet) 25 mg PO Q6H PRN PRN Reason: Anxiety Last Admin: 07/18/23 16:17 Dose: 25 mg Magnesium Hydroxide (Milk Of Magnesia 30 Ml Oral.Susp) 30 ml PO DAILY PRN PRN Reason: Constipation Nicotine (Nicotine 14 Mg Patch.Td24) 14 mg TRANSDERMA DAILY [facility] Last Admin: 07/20/23 09:08 Dose: 14 mg Olanzapine (Olanzapine 10 Mg Tablet) 10 mg PO Q6H PRN PRN Reason: agitation/severe anxiety Risperidone (Risperidone 0.5 Mg Tablet) 0.5 mg PO TID [facility] Last Admin: 07/20/23 15:14 Dose: 0.5 mg Trazodone HCl (Trazodone Hcl 50 Mg Tablet) 50 mg PO BEDTIME MRX1 PRN PRN Reason: Insomnia Allergies Allergies Allergy/AdvReac Type Severity Reaction Status Date / Time No Known Allergies Allergy Verified 07/17/23 15:13 Assessment & Plan Assessment & Plan (1) MDD (major depressive disorder), recurrent episode, moderate: Status: Acute Code(s): F33.1 - Major depressive disorder, recurrent, moderate (2) Motor tic disorder: Status: Acute Code(s): F95.8 - Other tic disorders Plan Ms. Vera is a 58 year old woman who presents with what seems to be a motor tic disorder rather than an OCD. She does have significant anxiety and premonitory urges, tics can be suppressed (as expected) but only increases urges. Pt started on combination of clonidine and risperidone. She does report dizziness last night after taking clonidine. She does not want to retract 3 day notice. Plan to d/c tomorrow. OP psych provider on board and aware of medication changes. Patient educated on: diagnosis Informed Consent: understands Reason for continued inpatient stay Substantial Risk for: inability to function Time Spent With Patient Time: Total time managing care of this patient today _35___ minutes.
[2023-07-20 18:00] VITALS: BP 96/52; PULSE 64; RESP 18; TEMP 35.9; O2SAT 98
[2023-07-21 02:20] VITALS: BP 102/58; PULSE 66; RESP 16
[2023-07-21 06:00] VITALS: BP 154/73; PULSE 62; RESP 14; TEMP 36.6; O2SAT 99
[2023-07-21] MEDS: Nicotine 14 MG PATCH.TD24 TRANSDERMA (08:50)
[2023-07-21] MEDS: risperiDONE 0.5 MG TABLET PO (08:51)
[2023-07-21] MEDS: FLUoxetine HCl 20 MG CAPSULE PO (08:51)
--- NOTE | 2023-07-21 10:03 | PM.PSYDC ---
DS: Providers Provider Date of Service: 07/21/23 Date of admission: 07/18/23 12:43 Primary care physician: Yadiel Quick MD DS: Diagnosis Discharge Diagnosis (1) MDD (major depressive disorder), recurrent episode, moderate: Status: Acute (2) Motor tic disorder: Status: Acute DS: Medications Discharge Medications Home Medications: Home Medications Medication Instructions Recorded Confirmed clonazepam 0.5 mg tablet (Klonopin) 0.5 mg PO BID PRN Anxiety 05/11/23 07/17/23 Previous Rx's Medication Instructions Recorded fluoxetine 20 mg capsule 20 mg PO DAILY #30 caps 07/21/23 nicotine 14 mg/24 hr daily 14 mg transdermal DAILY #30 ea 07/21/23 transdermal patch risperidone 0.5 mg tablet 0.5 mg PO TID #90 tabs 07/21/23 Mental Status Exam Mental Status Exam Narrative: Appearance: wearing hospital gown, fair hygiene, in NAD Behavior:less irritable, less guarded Psychomotor:intermittent blinking, tapping fingers, raising eye brows Speech: clear, normal rate/rhythm/volume, spontaneous TP: tangential at times TC: overwhelmed with urges to make movement Mood: better Affect:calmer, less irritable and less anxious SI: denies HI: denies VH/AH: none Delusions: none Insight/judgment: poor x 2. Memory/cog: alert, oriented x 3. not formally tested. Data Data Completed and Pending Completed studies during hospitalization [Text1]: 07/17/23 07/17/23 07/19/23 15:40 17:12 07:22 WBC 7.6 RBC 4.50 Hgb 14.0 Hct 40.8 MCV 90.7 MCH 31.1 MCHC 34.3 RDW 13.0 Plt Count 330 MPV 10.3 Immature Gran % (Auto) 0.3 Neut % (Auto) 66.9 Lymph % (Auto) 24.7 [place] % (Auto) 7.3 Eos % (Auto) 0.4 Baso % (Auto) 0.4 Lymph # (Auto) 1.9 [place] # (Auto) 0.6 Eos # (Auto) 0.0 Baso # (Auto) 0.0 Abs Immat Gran (auto) 0.02 Absolute Neuts (auto) 5.1 Absolute Nucleated RBC 0.000 Nucleated RBC % (auto) 0.0 Sodium 143 142 Potassium 4.0 4.3 Chloride 107 107 Carbon Dioxide 26 29 Anion Gap 14 10 L BUN 21 H 16 Creatinine 0.80 0.81 Estim Creat Clear Calc 69.8 68.9 Estimated GFR > 60 > 60 Random Glucose 99 Fasting Glucose 75 Estimat Average Glucose 105 Hemoglobin A1c % 5.3 Calcium 9.9 9.5 Total Bilirubin 0.4 0.6 AST 19 24 ALT 17 18 Alkaline Phosphatase 66 64 Total Protein 7.2 6.7 Albumin 4.2 3.9 Triglycerides 114 Cholesterol 273 H LDL Cholesterol, Calc 206 H HDL Cholesterol 45 Vitamin B12 717 Folate 14.2 TSH 0.90 Urine Color Yellow Urine Appearance Cloudy Urine pH 7.0 Ur Specific [place] 1.020 Urine Protein Negative Urine Glucose (UA) Negative Urine Ketones Negative Urine Blood Negative Urine Nitrite Negative Ur Leukocyte Esterase Moderate (2+) H Urine RBC 0-2 Urine WBC 0-5 Ur Squamous Epith Cells >20 Urine Bacteria Trace Hyaline Casts 0-2 Urine Opiates Screen Not Detected Urine Fentanyl Screen Not Detected Ur Barbiturates Screen Not Detected Ur Phencyclidine Scrn Not Detected Ur Amphetamines Screen Not Detected U Benzodiazepines Scrn Not Detected Urine Cocaine Screen Not Detected U Marijuana (THC) Screen Not Detected Ethyl Alcohol < 10 COVID-19 ([facility]) Negative COVID-19 Clin Com See Note DS: Summary Hospital Course Hospital Course: Ms. Vera is a 58 year old woman who self presented to [facility] reporting increase anxious mood, restless, ocd, affecting her ability to function and causing significant distress. She denied SI/HI. Utox was negative. On the unit, pt presents as restless, somewhat irritable. She describes urges to move her eyebrows with periods of blinking, tapping fingers and moving wrist. She describes an urge to do these movement and is able to suppress them temporarily but suppression leads to increase urges to do the movement. Pt reports feeling embarrassed at times doing the movement in public. 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 She reports increased anxious mood. She also reports depressed mood in setting in multiple stressors including financial, lack of social supports and recent losses in her life. She denies suicidal or homicidal ideation. She denies hx of or current visual or auditory hallucinations. No signs of delusions. She denies hx of suicide attempts. Past Psychiatric History: Inpt: none prior OP: [facility] NP. Past medication trials: prozac, clonazepam. Medical Evaluation Reviewed: Yes HOSPITAL COURSE On the unit, pt was admitted on a CV and placed on 15 minutes checks for safety. Pt signed a 3 day notice. She denied SI/HI. She presented with urges to move eyes brows, blink, tapping of hands/fingers. Preoccupation and debilitating factors of her presentation are related to bodily urges to make movement. She does describe increase anxiety, and build up prior movement. She is able to suppress them but suppression only increases and aggravates urges to do movement. Such movements appear to be tics. She reported she had been dx with OCD. However, her presentation seems to be more consistent with complex motor tic disorder than OCD where obsessions (thought disorder) seem to be most debilitating factor, repetitive actions are done to eliminate the thoughts. Whereas in tic disorder inability to suppress movement is main concern. We discussed at length with patient and her outpatient provider treatment for motor tic disorder which include medication such as higher potency antipsychotics like risperidone and alpha adrenergic medications such as clonidine or guanfacine. Her presentation is unusual in the sense that it does seem onset was in adult ma. Hx of cocaine use is known to be precipitant to tic disorder even after stopping its use. Her affect gradually presented as much less anxious and less irritable. The frequency and intensity of tics seemed to decrease significantly. She was able to socialize with peers and attend some groups. She did report dizziness with clonidine. Given that she declined to retract 3 day notice, decisions to stop clonidine at this point but she can try lower doses with her OP psych provider. Or she can try guanfacine instead. She tolerated risperidone. She was continued on prozac. She may benefit from outpatient follow up with movement disorder neurologist. On the unit, there were no incidences of disruptive behaviors nor need for restraints. Status at Discharge Cognitive/behavioral status at discharge: Pt with less anxious/restless presentation. less frequency and intensity of tics. No SI/HI. No VH/AH. No overt delusional content noted or reported. Functional status at discharge: independent ambulation Overall status at discharge: patient is progressing back to baseline Time Spent with Patient Time attestation: Total time managing care of this patient today __35__ minutes. Discharge Plan Discharge Anticipated Discharge Date/Time: 07/21/23 09:47 Patient Disposition: Home, Self-Care Discharge Diagnosis: MDD, recurrent, moderate Motor tic disorder Referrals: Yadiel Quick MD [Primary Care Provider] - 07/29/23 1:00 pm (Your follow up schedule has been schedule for Tuesday07/29/23 @ 1pm with Waleska Mi NP) Discharge Medications: New nicotine 14 mg/24 hr Patch 24 Hour 14 mg transdermal DAILY Qty: 30 0RF fluoxetine 20 mg Capsule 20 mg PO DAILY Qty: 30 0RF risperidone 0.5 mg Tablet 0.5 mg PO TID Qty: 90 0RF Continued clonazepam [Klonopin] 0.5 mg tablet 0.5 mg PO BID PRN (Reason: Anxiety) Discontinued fluoxetine 20 mg capsule 20 mg PO DAILY Discharge Orders: Discharge Order (Routine); Ordered 07/21/23 Ordered By: Shayy Causey Diet: Regular diet Activity on Discharge: As tolerated Stand Alone Forms: Patient Portal Discharge page Care Plan Goals: 1. maintain mood 2. No SI/HI 3. Less urges to engage in movement. Health Concerns: Follow up with PCP Plan of Treatment: 1. Take medications as prescribed 2. Go to nearest ED or call 911 in event of emergency Assessment: Pt with brighter, less anxious affect. Less frequency and intensity of tics. No SI/HI. No self injurious behaviors. No VH/AH. No delusions.
[2023-07-21] MEDS: clonazePAM 0.5 MG TABLET PO (10:17)
== END 2023-07-21 11:25 | disposition home or self-care (01) | DRG 751 ==
LOC: HO.ED 17:24 → HO.PGERI 07-18 13:01
PROVIDERS: Admitting Provider Social Worker; Emergency Provider Student in an Organized Health Care Education/Training Program; PCP Internal Medicine; Visit Provider Social Worker
DX: F33.1 Major depressive disorder, recurrent, moderate (principal); R45.851 Suicidal ideations; F95.8 Other tic disorders; F17.210 Nicotine dependence, cigarettes, uncomplicated; Z71.6 Tobacco abuse counseling; Z20.822 Contact with and (suspected) exposure to COVID-19; Z79.899 Other long term (current) drug therapy
CPT/HCPCS: 36415; 80053; 80061; 80307; 81001; 82607; 82746; 83036; 84443; 85025; 87635; 93005; 99285; S9485

== ENCOUNTER 2023-07-18 12:43 | Outpatient (BNV) | payer OTHER, MEDICARE, SELFPAY | END 2023-07-18 14:59 | PROVIDERS: Admitting Provider Social Worker; Emergency Provider Student in an Organized Health Care Education/Training Program; PCP Internal Medicine; Visit Provider Internal Medicine Cardiovascular Disease | DX: R94.31 Abnormal electrocardiogram [ECG] [EKG] (principal) | CPT/HCPCS: 93010 ==

== ENCOUNTER → 2023-07-18 12:43 | Outpatient (BNV) | payer OTHER, MEDICARE, SELFPAY | PROVIDERS: Admitting Provider Social Worker; Emergency Provider Student in an Organized Health Care Education/Training Program; PCP Internal Medicine; Visit Provider Social Worker | DX: F33.1 Major depressive disorder, recurrent, moderate (principal); F95.8 Other tic disorders | CPT/HCPCS: 90792; 99232; 99239 ==

== ENCOUNTER 2024-10-18 17:57 | Inpatient (IN) | payer MEDICARE, MEDICAID, SELFPAY ==
--- OUTSIDE RECORDS SUMMARY | 2024-10-18 18:25 | XMS_ITS ---
Author Name [facility] Organization Unknown Encounters Encounter Type Encounter Reason Primary Diagnosis Location Date Ambulatory [facility]. ([facility]) 04/01/2024
--- NOTE | 2024-10-18 18:43 | PC.NURSE ---
Pt arrived at 1836 on CV. Skin check completed. Pt has steri strips on abdomen from recent gallbladder surgery. No other findings noted. Pt oriented to unit. Admission note to follow.
[2024-10-18 19:02] VITALS: BP 140/76; PULSE 66; RESP 16; TEMP 36.6; O2SAT 98
[2024-10-18 19:03] VITALS: BMI 18.9
--- NOTE | 2024-10-19 06:08 | PC.ADMIT ---
Accepted care of the patient at 1930, 10/18/24. Patient is a , Arabic speaking female, admitted as a CV from [facility] ED. Patient had presented to the ED with anxiety and depression with SI without a plan. Patient apparently had been feeling lonely and also worried about her financial situation. Her ex- was laid off from his job and will not be able to pay alimony. Patient has a past history of anxiety, depression, PTSD, OCD and tobacco use. She has been psychiatrically admitted several times in the past and patient expressed frustration that no one has been able to help her. Loni said she has no friends, no relationship with anyone in her family and feels no one cares about her. She declined NRT and was quite guarded during the admission process. She answered admission questions and signed PATRIC. Safety tool needs to be done and signed, treatment plan and belongings also need to be signed. Patient said she does not take any medications except for Klonopin 0.5 mg po BID prn anxiety, This hand sign writer noted that patient had been prescribed Buspar in the past, but patient stated It made me feel funny . She did not rate her anxiety or depression but both appear to be high. Loni spent time in the hallway as well as the kitchen talking with other patients, and then went to bed.
[2024-10-19 08:00] VITALS: BP 125/60; PULSE 66; RESP 18; TEMP 36.4; O2SAT 98
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
[2024-10-19 10:14] LABS: Cholesterol 257 mg/dL (<200); HDL Cholesterol 54 mg/dL (>40); Magnesium 2.1 mg/dL (1.6-2.6); Triglycerides 139 mg/dL (<150)
[2024-10-19 10:28] LABS: Free T4 (Free Thyroxine) 0.99 ng/dL (0.71-1.85); Thyroid Stimulating Hormone 0.72 uIU/mL (0.32-4.0)
[2024-10-19 10:43] LABS: Folate 14.4 ng/mL (> or = 4.0); Vitamin B12 746 pg/mL (200-900)
[2024-10-19 10:46] LABS: Hemoglobin A1C 128.7721 umol/L; Total Hemoglobin (HGBA1C) 3729.5183 umol/L
--- NOTE | 2024-10-19 12:24 | P.CONHOSP_ITS ---
History of Present Illness Data of Consult Service Date: 10/19/24 Primary Care Provider: Yadiel Quick MD [facility] Reason for consult: Medical H&P 51-year-old female with a past medical history of anxiety, depression, PTSD, OCD, tobacco use and recent gallbladder surgery presented to [facility] with suicidal ideation without a plan exacerbated by financial concerns. Patient also reports a history of urinary incontinence. She reports that she wants to have bladder sling surgery as she tried multiple medications for this and they do not work. Per records she has nerve stimulator implanted. On exam she is awake, cooperative, picking at her skin and rubbing blankets and clothing repeatedly. EKG at the hospital demonstrated a normal sinus rhythm. CBC and Chem panel were within normal limits. On exam she has no complaints. Her abdomen is soft and nontender with intact Steri-Strips over incisions without any evidence of redness swelling or drainage. She does not have any acute medical concerns. Review of Systems Review of Systems: Denies any shortness of breath, chest pain, dizziness, lightheadedness, abdominal pain or discomfort, nausea vomiting or diarrhea PMFSH Family History Brother Bipolar disorder, unspecified Psychosis Social History (Updated 07/17/23 @ 20:31 by DAGO RoweW) Household Members: None Housing: Apartment Do you presently have visiting nurse or other home services: No Alcohol intake: never Patient Tobacco Use Status: Current everyday Tobacco user Tobacco use type: Cigarette Cigarette Packs Per Day: 1.5 Cigarettes Per Day: 30.0 Years Smoked: 35 Smoked in Last 30 Days: Yes e-Cigarette/Vaping Use: Never Used Patient Interested in Nicotine Replacement: No Patient Given Instructions on How to Stop Smoking: No Second Hand Smoke Exposure: Yes Currently Displaying Signs/Symptoms of Drug Intoxication Withdrawal: No Have you been hit, kicked, punched, or otherwise hurt by someone within the past year? If so, by whom?: No Do you feel safe in your current relationship?: No Current Relationship Is there a partner from a previous relationship who is making you feel unsafe now?: No Are you made to feel afraid or neglected: No Spiritual Healthcare Practices: none Religion Healthcare Practices: none Cultural Healthcare Practices: none Advance Directives: No Advance Directives Information Provided: No Do you have thoughts of harming others: None Do you have a plan to hurt others: No Plan Recently lost weight without trying: Yes How much weight loss: 34pounds or more Eating poorly because of decreased appetite: Yes Nutrition screen score: 7 Nutrition Risks: Poor intake 0-25% >4 days Patient : No : No Poor oral hygiene: No service: No Current occupational status: unemployed Sexual orientation: Straight/Heterosexual Gender identity: Female Meds Allergies Allergy/AdvReac Type Severity Reaction Status Date / Time No Known Allergies Allergy Verified 07/17/23 15:13 Active Medications: Current Medications Acetaminophen (Acetaminophen 325 Mg Tablet) 650 mg PO Q6H PRN PRN Reason: Headache/Pain, Scale 1-10 Al Hydroxide/Mg Hydroxide (Magnesium Hydrox/Alum Hydrox 30 Ml Oral.Susp) 30 ml PO Q6H PRN PRN Reason: Heartburn/Nausea Clonazepam (Clonazepam 0.5 Mg Tablet) 0.5 mg PO BID PRN PRN Reason: Anxiety Last Admin: 10/19/24 08:47 Dose: 0.5 mg Hydroxyzine HCl (Hydroxyzine Hcl 25 Mg Tablet) 25 mg PO Q6H PRN PRN Reason: mild anxiety Last Admin: 10/19/24 11:01 Dose: 25 mg Magnesium Hydroxide (Milk Of Magnesia 30 Ml Oral.Susp) 30 ml PO DAILY PRN PRN Reason: Constipation Nicotine Polacrilex (Nicotine Polacrilex 2 Mg Gum) 4 mg BUCCAL Q2H PRN PRN Reason: Nicotine Cravings Trazodone HCl (Trazodone Hcl 50 Mg Tablet) 50 mg PO BEDTIME MRX1 PRN PRN Reason: Insomnia Home Medications ?Medication ?Instructions ?Recorded ?Confirmed ?Last Taken ?Type clonazepam 0.5 mg tablet 0.5 mg PO BID 10/18/24 10/18/24 10/18/24 20:12 History Physical Exam Vital Signs and Narrative: Vital Signs: Last Vital Signs Temp 97.5 F 10/19/24 08:00 Pulse 66 10/19/24 08:00 Resp 18 10/19/24 08:00 BP 125/60 10/19/24 08:00 Pulse Ox 98 10/19/24 08:00 O2 Del Method Room Air 10/19/24 08:00 BMI result Body Mass Index 18.9 Alert and oriented X3, able to give good history. Anxious and fidgety Neuro: CN II-X11 intact, no deficits, visual acuity intact EYES: PERRLA, EOM intact ENT: Hearing intact, lips moist, nares patent no epistaxis Cardiac: S1 S2 RRR, No ectopy Pulmonary: lungs clear to auscultation, No increased WOB. Abdominal: BS active in all 4 quadrants, no guarding or tenderness MSK: Strength 5/5 upper and lower extremities : Deferred Extremities: No edema in lower extremities Psych: Cooperative. Skin: Steri-Strips in place over 3 areas on her abdomen without evidence of infection. Results Labs Labs: Laboratory Results - last 24 hr 10/19/24 09:20 Estimat Average Glucose 105 Hemoglobin A1c % 5.3 Magnesium 2.1 Triglycerides 139 Cholesterol 257 H LDL Cholesterol, Calc 176 H HDL Cholesterol 54 Vitamin B12 746 Folate 14.4 TSH 0.72 Free T4 0.99 Assessment and Plan (1) Hx laparoscopic cholecystectomy: Status: Acute Plan 59-year-old female with depression with suicidal ideation, anxiety, OCD and PTSD, presented to the ED with suicidal ideation without plan. She is admitted to [facility] for further psychiatric care. Anxiety/depression with suicidal ideation/OCD/PTSD Treatment per psychiatric team Status post Laparoscopic cholecystectomy Underwent surgery by Dr. Hilton on October 10 Wounds are stable with no evidence of infection. Patient is ambulatory Appears recovered from this. We will need follow up 2 weeks postop as outpatient. Urinary incontinence Patient has a nerve stimulator implanted Thank you for allowing me to participate in the care of this patient. Signing off at this time. Please reconsult of any acute concerns or issues arise
[2024-10-19] MEDS: Nicotine 21 MG PATCH.TD24 TRANSDERMA (12:34)
[2024-10-19 19:51] VITALS: BP 110/61; PULSE 61; TEMP 36.9; O2SAT 100
[2024-10-20 08:00] VITALS: BP 126/63; PULSE 67; TEMP 36.4; O2SAT 97
[2024-10-20] MEDS: Nicotine 21 MG PATCH.TD24 TRANSDERMA (08:52)
--- NOTE | 2024-10-20 09:53 | HO.PSYCHPN ---
Subjective Subjective Date of Service: 10/20/24 Reason For Visit: Unspecified Depressive disorder, Unsp Anxiety Dis Interim History: met with patient; discussed with team very anxious; remains with OCD symptoms; worried that clomipramine caused loose stool but accepts it maybe due to eating greasy food after gallbladder removal. Patient agrees to continue to take Clomipramine but also agrees to hold off on taking Zoloft for now. Mental Status Exam Mental Status Exam Narrative: Pt is alert and oriented; behavior is cooperative, anxious; patient is not in distress; dressed in gown, unkempt; mood is described as anxious and affect congruent; eye contact appropriate; Speech is normal rate, volume and prosody and not pressured; psychomotor retardation present; thought process is organized and goal directed; Thought content is perseverative on symptoms, side-effects; denies any SI/HI. Denies AVH and there is no evidence of perceptual disturbance. Patients insight and judgment impaired. Diagnostics Vital Signs (24Hr): Vital Signs - 24 hr 10/19/24 19:51 10/20/24 08:00 Temperature 98.5 F 97.6 F Pulse Rate 61 67 Blood Pressure 110/61 126/63 Pulse Oximetry 100 97 Oxygen Delivery Method Room Air Room Air BMI result Body Mass Index 18.9 Labs Labs: Laboratory Results - last 48 hr 10/19/24 09:20 Estimat Average Glucose 105 Hemoglobin A1c % 5.3 Magnesium 2.1 Triglycerides 139 Cholesterol 257 H LDL Cholesterol, Calc 176 H HDL Cholesterol 54 Vitamin B12 746 Folate 14.4 TSH 0.72 Free T4 0.99 Medications Medications Current Medications Acetaminophen (Acetaminophen 325 Mg Tablet) 650 mg PO Q6H PRN PRN Reason: Headache/Pain, Scale 1-10 Al Hydroxide/Mg Hydroxide (Magnesium Hydrox/Alum Hydrox 30 Ml Oral.Susp) 30 ml PO Q6H PRN PRN Reason: Heartburn/Nausea Clomipramine HCl (Clomipramine Hcl 25 Mg Capsule) 25 mg PO BEDTIME KIMI Last Admin: 10/19/24 21:16 Dose: 25 mg Clonazepam (Clonazepam 0.5 Mg Tablet) 0.5 mg PO TID PRN PRN Reason: Anxiety Last Admin: 10/20/24 08:58 Dose: 0.5 mg Hydroxyzine HCl (Hydroxyzine Hcl 25 Mg Tablet) 25 mg PO Q6H PRN PRN Reason: mild anxiety Last Admin: 10/19/24 11:01 Dose: 25 mg Magnesium Hydroxide (Milk Of Magnesia 30 Ml Oral.Susp) 30 ml PO DAILY PRN PRN Reason: Constipation Nicotine (Nicotine 21 Mg Patch.Td24) 21 mg TRANSDERMA DAILY PRN PRN Reason: smoking cessation Last Admin: 10/20/24 08:52 Dose: 21 mg Nicotine Polacrilex (Nicotine Polacrilex 2 Mg Gum) 4 mg BUCCAL Q2H PRN PRN Reason: Nicotine Cravings Olanzapine (Olanzapine 5 Mg Tablet) 5 mg PO Q4H PRN PRN Reason: agitation,dissociation Sertraline HCl (Sertraline Hcl 25 Mg Tablet) 25 mg PO DAILY KIMI Last Admin: 10/20/24 09:48 Dose: Not Given Trazodone HCl (Trazodone Hcl 50 Mg Tablet) 50 mg PO BEDTIME MRX1 PRN PRN Reason: Insomnia Allergies Allergies Allergy/AdvReac Type Severity Reaction Status Date / Time No Known Allergies Allergy Verified 07/17/23 15:13 Assessment & Plan Assessment & Plan (1) MDD (major depressive disorder), recurrent episode, moderate: Status: Acute Code(s): F33.1 - Major depressive disorder, recurrent, moderate (2) Suicidal ideation: Status: Acute Code(s): R45.851 - Suicidal ideations (3) OCD (obsessive compulsive disorder): Status: Acute Code(s): F42.9 - Obsessive-compulsive disorder, unspecified (4) PTSD (post-traumatic stress disorder): Status: Acute Code(s): F43.10 - Post-traumatic stress disorder, unspecified (5) Panic disorder: Status: Acute Code(s): F41.0 - Panic disorder [episodic paroxysmal anxiety] Plan 10/20 remains with considerable anxiety; loose stool; will hold zoloft and continue w/ clomiprmaine Admit, CV, 15 minute checks Encourage full milieu Collateral Contact Diagnostics as needed EKG Increase Klonopin to 0.5 mg tid Sertraline 25 mg daily Anafranil 25 mg HS Olanzapine 5 mg q4h prn agitation-if helpful will schedule Patient educated on: diagnosis and medication risk/benefits Informed Consent: understands and further education needed Reason for continued inpatient stay Substantial Risk for: rapid decompensation Time Spent With Patient Time: Total time managing care of this patient today ____ minutes.
[2024-10-20 19:49] VITALS: BP 122/62; PULSE 69; RESP 16; TEMP 36.8; O2SAT 99
[2024-10-21 08:00] VITALS: BP 120/59; PULSE 62; TEMP 36.3; O2SAT 96
--- NOTE | 2024-10-21 08:48 | HO.PSYCHPN ---
Subjective Subjective Date of Service: 10/21/24 Reason For Visit: Unspecified Depressive disorder, Unsp Anxiety Dis Interim History: Met with patient; discussed with team Patient remains very anxious, lying awake in bed. She did take clomipramine last night though nurse said it took quite a lot of deliberation; however she did not have anymore loose stool agrees it is unlikely due to medication and so agrees to increasing dose Mental Status Exam Mental Status Exam Narrative: Pt is alert and oriented; behavior is cooperative, anxious, lying in bed; patient is not in distress; dressed in gown, unkempt; mood is described as anxious and affect congruent; eye contact appropriate; Speech is normal rate, volume and prosody and not pressured; psychomotor retardation present; thought process is organized and goal directed; Thought content is perseverative on symptoms, side-effects; denies any SI/HI. Denies AVH and there is no evidence of perceptual disturbance. Patients insight and judgment impaired. Diagnostics Vital Signs (24Hr): Vital Signs - 24 hr 10/20/24 19:49 10/21/24 08:00 Temperature 98.2 F 97.4 F Pulse Rate 69 62 Respiratory Rate 16 Blood Pressure 122/62 120/59 L Pulse Oximetry 99 96 Oxygen Delivery Method Room Air Room Air BMI result Body Mass Index 18.9 Labs Labs: Laboratory Results - last 48 hr 10/19/24 09:20 Estimat Average Glucose 105 Hemoglobin A1c % 5.3 Magnesium 2.1 Triglycerides 139 Cholesterol 257 H LDL Cholesterol, Calc 176 H HDL Cholesterol 54 Vitamin B12 746 Folate 14.4 TSH 0.72 Free T4 0.99 Medications Medications Current Medications Acetaminophen (Acetaminophen 325 Mg Tablet) 650 mg PO Q6H PRN PRN Reason: Headache/Pain, Scale 1-10 Al Hydroxide/Mg Hydroxide (Magnesium Hydrox/Alum Hydrox 30 Ml Oral.Susp) 30 ml PO Q6H PRN PRN Reason: Heartburn/Nausea Clomipramine HCl (Clomipramine Hcl 25 Mg Capsule) 25 mg PO BEDTIME KIMI Last Admin: 10/20/24 20:32 Dose: 25 mg Clonazepam (Clonazepam 0.5 Mg Tablet) 0.5 mg PO TID PRN PRN Reason: Anxiety Last Admin: 10/20/24 19:06 Dose: 0.5 mg Hydroxyzine HCl (Hydroxyzine Hcl 25 Mg Tablet) 25 mg PO Q6H PRN PRN Reason: mild anxiety Last Admin: 10/19/24 11:01 Dose: 25 mg Loperamide HCl (Loperamide Hcl 2 Mg Capsule) 4 mg PO Q6H PRN PRN Reason: loose stool Magnesium Hydroxide (Milk Of Magnesia 30 Ml Oral.Susp) 30 ml PO DAILY PRN PRN Reason: Constipation Nicotine (Nicotine 21 Mg Patch.Td24) 21 mg TRANSDERMA DAILY PRN PRN Reason: smoking cessation Last Admin: 10/20/24 08:52 Dose: 21 mg Nicotine Polacrilex (Nicotine Polacrilex 2 Mg Gum) 4 mg [place] Q2H PRN PRN Reason: Nicotine Cravings Olanzapine (Olanzapine 5 Mg Tablet) 5 mg PO Q4H PRN PRN Reason: agitation,dissociation Sertraline HCl (Sertraline Hcl 25 Mg Tablet) 25 mg PO DAILY KIMI Last Admin: 10/20/24 09:48 Dose: Not Given Trazodone HCl (Trazodone Hcl 50 Mg Tablet) 50 mg PO BEDTIME MRX1 PRN PRN Reason: Insomnia Allergies Allergies Allergy/AdvReac Type Severity Reaction Status Date / Time No Known Allergies Allergy Verified 07/17/23 15:13 Assessment & Plan Assessment & Plan (1) MDD (major depressive disorder), recurrent episode, moderate: Status: Acute Code(s): F33.1 - Major depressive disorder, recurrent, moderate (2) Suicidal ideation: Status: Acute Code(s): R45.851 - Suicidal ideations (3) OCD (obsessive compulsive disorder): Status: Acute Code(s): F42.9 - Obsessive-compulsive disorder, unspecified (4) PTSD (post-traumatic stress disorder): Status: Acute Code(s): F43.10 - Post-traumatic stress disorder, unspecified (5) Panic disorder: Status: Acute Code(s): F41.0 - Panic disorder [episodic paroxysmal anxiety] Plan 10/20 remains with considerable anxiety; loose stool; will hold zoloft and continue w/ clomiprmaine 10/21 Patient remains very anxious, lying awake in bed. She did take clomipramine last night though nurse said it took quite a lot of deliberation; however she did not have anymore loose stool agrees it is unlikely due to medication and so agrees to increasing dose PLAN: Admit, CV, 15 minute checks Klonopin to 0.5 mg tid Sertraline 25 mg daily InCREased to Anafranil 50 mg HS Olanzapine 5 mg q4h prn agitation-if helpful will schedule Encourage full milieu Collateral Contact Diagnostics as needed EKG Patient educated on: diagnosis and medication risk/benefits Informed Consent: understands and further education needed Reason for continued inpatient stay Substantial Risk for: rapid decompensation Time Spent With Patient Time: Total time managing care of this patient today ____ minutes.
[2024-10-21] MEDS: Nicotine 21 MG PATCH.TD24 TRANSDERMA (08:54)
[2024-10-21 20:00] VITALS: BP 111/59; PULSE 64; TEMP 36.8; O2SAT 100
--- NOTE | 2024-10-22 | ECG_ITS ---
Test Reason : rule out QTc prolongation Blood Pressure : */* mmHG Vent. Rate : 59 BPM Atrial Rate : 59 BPM P-R Int : 140 ms QRS Dur : 76 ms QT Int : 442 ms P-R-T Axes : -5 100 32 degrees QTcB Int : 437 ms Sinus bradycardia Rightward axis Borderline ECG When compared with ECG of 18-Jul-2023 14:59, No significant change was found Referred By: Rashmi Polo Electronically Signed By: Alf Quintana
[2024-10-22 08:00] VITALS: BP 117/57; PULSE 57; RESP 20; TEMP 36.3; O2SAT 97
--- NOTE | 2024-10-22 10:21 | P.PNPSI_ITS ---
Subjective Subjective Date of Service: 10/22/24 Reason For Visit: Unspecified Depressive disorder, Unsp Anxiety Dis Subjective Notes: Conditional Voluntary Healthcare Proxy: No Guardianship: No Medical Problems Affecting Mental Status: No Interim History: Difficult weekend. Difficult day today with several OCD sx which are paralyzing. Incontinence persists, Pt refuses showering due to increase in anxiety. Refusing meds-Took Anafranil x 2 doses- nausea, vertigo, grogginess, dissociation, shakey, poor appetite. We will DC and focus on Sertraline/Olanzapine combination. Olanzapine scheduled. Struggling with eating. Nutrition Services requested to send only chocolate Ensure. Pt reports sx are more prominent during the day, decreased in the evening. Pt struggling with the unit being loud . Medication Compliance: Intermittent Side effects from medications: Yes Attending Groups: No Review of Systems urinary incontinence Medical Review of Systems: unchanged Review of Systems Review of Systems urinary incontinence poor appetite shakey nausea Discussed some of these sx possibly related to recent cholecystectomy. Mental Status Exam Mental Status Exam Patient Appearance: Fatigued and Disheveled Patient Orientation: Person, Place, Time and Situation Level of Consciousness: Alert Patient Behavior: Guarded, Talkative, Cooperative, Suspicious, Anxious, Resistive to Care and Poor Eye Contact Mood Description: Suspicious, Withdrawn, Depressed, Fearful, Anxious and Apprehensive Affect Description: Apprehensive Patient Cognition Impaired: No Ability to Follow Directions: Fair Speech Pattern: Spontaneous Speech Memory Description: Episodic Impaired Hallucinations: None Delusions: Paranoid Ideation Perceptual Disturbances: Depersonalization and Derealization Thought Process: Rumination Thought Content: positive for Obsessional Thoughts, positive for Circumstantial, positive for Perseveration and positive for Preoccupation Depressive Symptoms: Increased Anxiety, Feelings of Worthlessness, Hopelessness, Increased Fatigue, Loss of Energy and Difficulty Concentrating Judgement: Poor Diagnostics Vital Signs (24Hr): Vital Signs - 24 hr 10/21/24 20:00 10/22/24 08:00 Temperature 98.2 F 97.3 F Pulse Rate 64 57 Respiratory Rate 20 Blood Pressure 111/59 L 117/57 L Pulse Oximetry 100 97 Oxygen Delivery Method Room Air Room Air BMI result Body Mass Index 18.9 Medications Medications Current Medications Acetaminophen (Acetaminophen 325 Mg Tablet) 650 mg PO Q6H PRN PRN Reason: Headache/Pain, Scale 1-10 Al Hydroxide/Mg Hydroxide (Magnesium Hydrox/Alum Hydrox 30 Ml Oral.Susp) 30 ml PO Q6H PRN PRN Reason: Heartburn/Nausea Clomipramine HCl (Clomipramine Hcl 25 Mg Capsule) 50 mg PO BEDTIME KIMI Last Admin: 10/21/24 20:21 Dose: Not Given Clonazepam (Clonazepam 0.5 Mg Tablet) 0.5 mg PO TID PRN PRN Reason: Anxiety Last Admin: 10/21/24 20:22 Dose: 0.5 mg Hydroxyzine HCl (Hydroxyzine Hcl 25 Mg Tablet) 25 mg PO Q6H PRN PRN Reason: mild anxiety Last Admin: 10/19/24 11:01 Dose: 25 mg Loperamide HCl (Loperamide Hcl 2 Mg Capsule) 4 mg PO Q6H PRN PRN Reason: loose stool Magnesium Hydroxide (Milk Of Magnesia 30 Ml Oral.Susp) 30 ml PO DAILY PRN PRN Reason: Constipation Nicotine (Nicotine 21 Mg Patch.Td24) 21 mg TRANSDERMA DAILY PRN PRN Reason: smoking cessation Last Admin: 10/21/24 08:54 Dose: 21 mg Nicotine Polacrilex (Nicotine Polacrilex 2 Mg Gum) 4 mg BUCCAL Q2H PRN PRN Reason: Nicotine Cravings Olanzapine (Olanzapine 5 Mg Tablet) 5 mg PO Q4H PRN PRN Reason: agitation,dissociation Saliva Substitute (Dry Mouth [place] 60 Ml [place]) 1 spray MUCOUS MEM Q2H PRN PRN Reason: dry mouth Sertraline HCl (Sertraline Hcl 25 Mg Tablet) 25 mg PO DAILY [facility] Last Admin: 10/20/24 09:48 Dose: Not Given Trazodone HCl (Trazodone Hcl 50 Mg Tablet) 50 mg PO BEDTIME MRX1 PRN PRN Reason: Insomnia Allergies Allergies Allergy/AdvReac Type Severity Reaction Status Date / Time No Known Allergies Allergy Verified 07/17/23 15:13 Assessment & Plan Assessment & Plan (1) MDD (major depressive disorder), recurrent episode, moderate: Status: Acute Code(s): F33.1 - Major depressive disorder, recurrent, moderate (2) Suicidal ideation: Status: Acute Code(s): R45.851 - Suicidal ideations (3) OCD (obsessive compulsive disorder): Status: Acute Code(s): F42.9 - Obsessive-compulsive disorder, unspecified (4) PTSD (post-traumatic stress disorder): Status: Acute Code(s): F43.10 - Post-traumatic stress disorder, unspecified (5) Panic disorder: Status: Acute Code(s): F41.0 - Panic disorder [episodic paroxysmal anxiety] Plan 10/20 remains with considerable anxiety; loose stool; will hold zoloft and continue w/ clomiprmaine 10/21 Patient remains very anxious, lying awake in bed. She did take clomipramine last night though nurse said it took quite a lot of deliberation; however she did not have anymore loose stool agrees it is unlikely due to medication and so agrees to increasing dose 10/22 anxious, treatment resistant. Will not take clomipramine. Will accept Sertraline and scheduled Olanzapine PLAN: Admit, CV, 15 minute checks Klonopin to 0.5 mg tid-scheduled Sertraline 25 mg daily DC Anafranil- pt will not accept it Olanzapine 5 mg q4h prn agitation Olanzepine 5 mg bid Encourage full milieu Collateral Contact Diagnostics as needed EKG- second request/order Patient educated on: medication risk/benefits Reason for continued inpatient stay Substantial Risk for: rapid decompensation and med/psych decompensation Time Spent With Patient Time: Total time managing care of this patient today ____ minutes.
[2024-10-22 19:39] VITALS: BP 147/68; PULSE 62; TEMP 36.7; O2SAT 100
[2024-10-23 08:00] VITALS: BP 147/67; PULSE 61; RESP 18; TEMP 37.2; O2SAT 100
[2024-10-23] MEDS: Nicotine 21 MG PATCH.TD24 TRANSDERMA (08:48)
--- NOTE | 2024-10-23 09:45 | HO.PSYCHPN ---
Subjective Subjective Date of Service: 10/23/24 Reason For Visit: Unspecified Depressive disorder, Unsp Anxiety Dis Subjective Notes: Conditional Voluntary Healthcare Proxy: No Guardianship: No Medical Problems Affecting Mental Status: Yes Interim History: Struggling with symptoms, accepting medicine, accepting treatment. Did accept Olanzapine and Sertraline today. Several SE reported. Encouraged pt to keep trying. She reports feeling pessimisim. Medication Compliance: Intermittent Side effects from medications: Yes Attending Groups: No Review of Systems Incontinence- refusal of urological consult Medical Review of Systems: unchanged Review of Systems Review of Systems incontinence Mental Status Exam Mental Status Exam Patient Appearance: Fatigued and Disheveled Patient Orientation: Person, Place, Time and Situation Level of Consciousness: Alert Patient Behavior: Guarded, Talkative, Cooperative, Suspicious, Anxious, Resistive to Care and Poor Eye Contact Mood Description: Suspicious, Withdrawn, Depressed, Fearful, Anxious and Apprehensive Affect Description: Apprehensive Patient Cognition Impaired: No Ability to Follow Directions: Fair Speech Pattern: Spontaneous Speech Memory Description: Episodic Impaired Hallucinations: None Delusions: Paranoid Ideation Perceptual Disturbances: Depersonalization and Derealization Thought Process: Rumination Thought Content: positive for Obsessional Thoughts, positive for Circumstantial, positive for Perseveration and positive for Preoccupation Depressive Symptoms: Increased Anxiety, Feelings of Worthlessness, Hopelessness, Increased Fatigue, Loss of Energy and Difficulty Concentrating Judgement: Poor Diagnostics Vital Signs (24Hr): Vital Signs - 24 hr 10/22/24 19:39 10/23/24 08:00 Temperature 98.0 F 98.9 F Pulse Rate 62 61 Respiratory Rate 18 Blood Pressure 147/68 H 147/67 H Pulse Oximetry 100 100 Oxygen Delivery Method Room Air Room Air BMI result Body Mass Index 18.9 Medications Medications Current Medications Acetaminophen (Acetaminophen 325 Mg Tablet) 650 mg PO Q6H PRN PRN Reason: Headache/Pain, Scale 1-10 Al Hydroxide/Mg Hydroxide (Magnesium Hydrox/Alum Hydrox 30 Ml Oral.Susp) 30 ml PO Q6H PRN PRN Reason: Heartburn/Nausea Clonazepam (Clonazepam 0.5 Mg Tablet) 0.5 mg PO TID PRN PRN Reason: Anxiety Last Admin: 10/23/24 08:50 Dose: 0.5 mg Hydroxyzine HCl (Hydroxyzine Hcl 25 Mg Tablet) 25 mg PO Q6H PRN PRN Reason: mild anxiety Last Admin: 10/19/24 11:01 Dose: 25 mg Loperamide HCl (Loperamide Hcl 2 Mg Capsule) 4 mg PO Q6H PRN PRN Reason: loose stool Magnesium Hydroxide (Milk Of Magnesia 30 Ml Oral.Susp) 30 ml PO DAILY PRN PRN Reason: Constipation Nicotine (Nicotine 21 Mg Patch.Td24) 21 mg TRANSDERMA DAILY PRN PRN Reason: smoking cessation Last Admin: 10/23/24 08:48 Dose: 21 mg Nicotine Polacrilex (Nicotine Polacrilex 2 Mg Gum) 4 mg BUCCAL Q2H PRN PRN Reason: Nicotine Cravings Olanzapine (Olanzapine 5 Mg Tablet) 5 mg PO Q4H PRN PRN Reason: agitation,dissociation Last Admin: 10/22/24 12:22 Dose: 5 mg Olanzapine (Olanzapine 2.5 Mg Tablet) 2.5 mg PO BID [facility] Last Admin: 10/23/24 08:48 Dose: 2.5 mg Saliva Substitute (Dry Mouth [place] 60 Ml [place]) 1 spray MUCOUS MEM Q2H PRN PRN Reason: dry mouth Sertraline HCl (Sertraline Hcl 25 Mg Tablet) 25 mg PO DAILY [facility] Last Admin: 10/20/24 09:48 Dose: Not Given Trazodone HCl (Trazodone Hcl 50 Mg Tablet) 50 mg PO BEDTIME MRX1 PRN PRN Reason: Insomnia Allergies Allergies Allergy/AdvReac Type Severity Reaction Status Date / Time No Known Allergies Allergy Verified 07/17/23 15:13 Assessment & Plan Assessment & Plan (1) MDD (major depressive disorder), recurrent episode, moderate: Status: Acute Code(s): F33.1 - Major depressive disorder, recurrent, moderate (2) Suicidal ideation: Status: Acute Code(s): R45.851 - Suicidal ideations (3) OCD (obsessive compulsive disorder): Status: Acute Code(s): F42.9 - Obsessive-compulsive disorder, unspecified (4) PTSD (post-traumatic stress disorder): Status: Acute Code(s): F43.10 - Post-traumatic stress disorder, unspecified (5) Panic disorder: Status: Acute Code(s): F41.0 - Panic disorder [episodic paroxysmal anxiety] Plan 10/20 remains with considerable anxiety; loose stool; will hold zoloft and continue w/ clomiprmaine 10/21 Patient remains very anxious, lying awake in bed. She did take clomipramine last night though nurse said it took quite a lot of deliberation; however she did not have anymore loose stool agrees it is unlikely due to medication and so agrees to increasing dose 10/22 anxious, treatment resistant. Will not take clomipramine. Will accept Sertraline and scheduled Olanzapine 10/23 continue to encourage treatment PLAN: Admit, CV, 15 minute checks Klonopin to 0.5 mg tid-scheduled Sertraline 25 mg daily DC Anafranil- pt will not accept it Olanzapine 5 mg q4h prn agitation Olanzepine 5 mg bid Encourage full milieu Collateral Contact Diagnostics as needed EKG- second request/order Reason for continued inpatient stay Substantial Risk for: rapid decompensation and med/psych decompensation Time Spent With Patient Time: Total time managing care of this patient today ____ minutes.
[2024-10-23] MEDS: Dry Mouth Spray 60 ML SPRAY 1 SPRAY MUCOUS MEM (20:51)
[2024-10-24 07:44] VITALS: BP 132/63; PULSE 56; TEMP 35.9; O2SAT 100
--- NOTE | 2024-10-24 12:03 | HO.PSYCHPN ---
Subjective Subjective Date of Service: 10/24/24 Reason For Visit: Unspecified Depressive disorder, Unsp Anxiety Dis Subjective Notes: Conditional Voluntary Healthcare Proxy: No Guardianship: No Medical Problems Affecting Mental Status: No Interim History: Reports med SE. Diarrhea, poor appetite, dry mouth. States it is not from Klonopin, but from Olanzapine/Sertraline. OCD sx are out of control. Reports feeling phobic of the bathroom. Conflict with room-mate, panic sx. My mouth is like a desert, I don't want any more diarrhea-I want to stop them both. Agrees to ECT Consult to replace meds. Medication Compliance: Yes Side effects from medications: Yes Attending Groups: No Review of Systems Acute medical concerns: No Medical Review of Systems: unchanged Review of Systems Review of Systems Med SE as noted Mental Status Exam Mental Status Exam Patient Appearance: Fatigued and Disheveled Patient Orientation: Person, Place, Time and Situation Level of Consciousness: Alert Patient Behavior: Guarded, Talkative, Cooperative, Suspicious, Anxious, Resistive to Care and Poor Eye Contact Mood Description: Suspicious, Withdrawn, Depressed, Fearful, Anxious and Apprehensive Affect Description: Apprehensive Patient Cognition Impaired: No Ability to Follow Directions: Fair Speech Pattern: Spontaneous Speech Memory Description: Episodic Impaired Hallucinations: None Delusions: Paranoid Ideation Perceptual Disturbances: Depersonalization and Derealization Thought Process: Rumination Thought Content: positive for Obsessional Thoughts, positive for Circumstantial, positive for Perseveration and positive for Preoccupation Depressive Symptoms: Increased Anxiety, Feelings of Worthlessness, Hopelessness, Increased Fatigue, Loss of Energy and Difficulty Concentrating Judgement: Poor Diagnostics Vital Signs (24Hr): Vital Signs - 24 hr 10/24/24 07:44 Temperature 96.7 F L Pulse Rate 56 Blood Pressure 132/63 Pulse Oximetry 100 Oxygen Delivery Method Room Air BMI result Body Mass Index 18.9 Medications Medications Current Medications Acetaminophen (Acetaminophen 325 Mg Tablet) 650 mg PO Q6H PRN PRN Reason: Headache/Pain, Scale 1-10 Al Hydroxide/Mg Hydroxide (Magnesium Hydrox/Alum Hydrox 30 Ml Oral.Susp) 30 ml PO Q6H PRN PRN Reason: Heartburn/Nausea Carbamide Peroxide (Carbamide Peroxide 6.5% Otic 15 Ml Drpbtl) 5 drop EAR-BOTH BID PRN PRN Reason: sx of ear blocking Stop: 10/27/24 14:05 Clonazepam (Clonazepam 0.5 Mg Tablet) 0.5 mg PO TID PRN PRN Reason: Anxiety Last Admin: 10/24/24 08:52 Dose: 0.5 mg Hydroxyzine HCl (Hydroxyzine Hcl 25 Mg Tablet) 25 mg PO Q6H PRN PRN Reason: mild anxiety Last Admin: 10/19/24 11:01 Dose: 25 mg Loperamide HCl (Loperamide Hcl 2 Mg Capsule) 4 mg PO Q6H PRN PRN Reason: loose stool Magnesium Hydroxide (Milk Of Magnesia 30 Ml Oral.Susp) 30 ml PO DAILY PRN PRN Reason: Constipation Nicotine (Nicotine 21 Mg Patch.Td24) 21 mg TRANSDERMA DAILY PRN PRN Reason: smoking cessation Last Admin: 10/23/24 08:48 Dose: 21 mg Nicotine Polacrilex (Nicotine Polacrilex 2 Mg Gum) 4 mg BUCCAL Q2H PRN PRN Reason: Nicotine Cravings Olanzapine (Olanzapine 5 Mg Tablet) 5 mg PO Q4H PRN PRN Reason: agitation,dissociation Last Admin: 10/22/24 12:22 Dose: 5 mg Olanzapine (Olanzapine 2.5 Mg Tablet) 2.5 mg PO BID KIMI Last Admin: 10/24/24 08:48 Dose: 2.5 mg Saliva Substitute (Dry Mouth [place] 60 Ml [place]) 1 spray MUCOUS MEM Q2H PRN PRN Reason: dry mouth Last Admin: 10/23/24 20:51 Dose: 1 spray Sertraline HCl (Sertraline Hcl 25 Mg Tablet) 25 mg PO DAILY [facility] Last Admin: 10/24/24 08:48 Dose: 25 mg Trazodone HCl (Trazodone Hcl 50 Mg Tablet) 50 mg PO BEDTIME MRX1 PRN PRN Reason: Insomnia Allergies Allergies Allergy/AdvReac Type Severity Reaction Status Date / Time No Known Allergies Allergy Verified 07/17/23 15:13 Assessment & Plan Assessment & Plan (1) MDD (major depressive disorder), recurrent episode, moderate: Status: Acute Code(s): F33.1 - Major depressive disorder, recurrent, moderate (2) Suicidal ideation: Status: Acute Code(s): R45.851 - Suicidal ideations (3) OCD (obsessive compulsive disorder): Status: Acute Code(s): F42.9 - Obsessive-compulsive disorder, unspecified (4) PTSD (post-traumatic stress disorder): Status: Acute Code(s): F43.10 - Post-traumatic stress disorder, unspecified (5) Panic disorder: Status: Acute Code(s): F41.0 - Panic disorder [episodic paroxysmal anxiety] Plan 10/20 remains with considerable anxiety; loose stool; will hold zoloft and continue w/ clomiprmaine 10/21 Patient remains very anxious, lying awake in bed. She did take clomipramine last night though nurse said it took quite a lot of deliberation; however she did not have anymore loose stool agrees it is unlikely due to medication and so agrees to increasing dose 10/22 anxious, treatment resistant. Will not take clomipramine. Will accept Sertraline and scheduled Olanzapine 10/24: ECT consult. Pt agrees to continue Sertraline/Olanzapine at this time. PLAN: Admit, CV, 15 minute checks Klonopin to 0.5 mg tid-scheduled Sertraline 25 mg daily DC Anafranil- pt will not accept it Olanzapine 5 mg q4h prn agitation Olanzepine 5 mg bid Encourage full milieu Collateral Contact Diagnostics as needed EKG- second request/order Reason for continued inpatient stay Substantial Risk for: rapid decompensation and med/psych decompensation Time Spent With Patient Time: Total time managing care of this patient today ____ minutes.
[2024-10-24] MEDS: Nicotine 21 MG PATCH.TD24 TRANSDERMA (13:36)
[2024-10-24 20:00] VITALS: BP 123/79; PULSE 75; RESP 16; TEMP 37.1; O2SAT 100
[2024-10-25 08:00] VITALS: BP 122/60; PULSE 58; RESP 16; TEMP 36.5; O2SAT 97
[2024-10-25] MEDS: Nicotine 21 MG PATCH.TD24 TRANSDERMA (09:26)
--- NOTE | 2024-10-25 11:04 | HO.PSYCHPN ---
Subjective Subjective Date of Service: 10/25/24 Reason For Visit: Unspecified Depressive disorder, Unsp Anxiety Dis Subjective Notes: Conditional Voluntary Healthcare Proxy: No Guardianship: No Medical Problems Affecting Mental Status: No Interim History: Awake, in bed, appears more relaxed. The diarrhea stopped . Reports nights are less symptomatic. Weight 109, from 116 in September, history of 130 lbs Pt is not eating much- Ensure, Chocolate Ice Cream Cups, Mashed Potatoes. States she is vegan and is concerned about weight loss. Also, fears choking, however denies difficulty swallowing but fears this-reports hesitancy. Pt reports she has missed a post op appt for lap ben this week. Medication Compliance: Yes Side effects from medications: Yes Attending Groups: No Review of Systems as noted Medical Review of Systems: unchanged Review of Systems Review of Systems as noted in HPI Mental Status Exam Mental Status Exam Patient Appearance: Fatigued and Disheveled Patient Orientation: Person, Place, Time and Situation Level of Consciousness: Alert Patient Behavior: Guarded, Talkative, Cooperative, Suspicious, Anxious, Resistive to Care and Poor Eye Contact Mood Description: Suspicious, Withdrawn, Depressed, Fearful, Anxious and Apprehensive Affect Description: Apprehensive Patient Cognition Impaired: No Ability to Follow Directions: Fair Speech Pattern: Spontaneous Speech Memory Description: Episodic Impaired Hallucinations: None Delusions: Paranoid Ideation Perceptual Disturbances: Depersonalization and Derealization Thought Process: Rumination Thought Content: positive for Obsessional Thoughts, positive for Circumstantial, positive for Perseveration and positive for Preoccupation Depressive Symptoms: Increased Anxiety, Feelings of Worthlessness, Hopelessness, Increased Fatigue, Loss of Energy and Difficulty Concentrating Judgement: Poor Diagnostics Vital Signs (24Hr): Vital Signs - 24 hr 10/24/24 20:00 10/25/24 08:00 Temperature 98.8 F 97.7 F Pulse Rate 75 58 Respiratory Rate 16 16 Blood Pressure 123/79 122/60 Pulse Oximetry 100 97 Oxygen Delivery Method Room Air Room Air BMI result Body Mass Index 18.9 Medications Medications Current Medications Acetaminophen (Acetaminophen 325 Mg Tablet) 650 mg PO Q6H PRN PRN Reason: Headache/Pain, Scale 1-10 Al Hydroxide/Mg Hydroxide (Magnesium Hydrox/Alum Hydrox 30 Ml Oral.Susp) 30 ml PO Q6H PRN PRN Reason: Heartburn/Nausea Carbamide Peroxide (Carbamide Peroxide 6.5% Otic 15 Ml Drpbtl) 5 drop EAR-BOTH BID PRN PRN Reason: sx of ear blocking Stop: 10/27/24 14:05 Clonazepam (Clonazepam 0.5 Mg Tablet) 0.5 mg PO TID PRN PRN Reason: Anxiety Last Admin: 10/25/24 09:26 Dose: 0.5 mg Hydroxyzine HCl (Hydroxyzine Hcl 25 Mg Tablet) 25 mg PO Q6H PRN PRN Reason: mild anxiety Last Admin: 10/19/24 11:01 Dose: 25 mg Loperamide HCl (Loperamide Hcl 2 Mg Capsule) 4 mg PO Q6H PRN PRN Reason: loose stool Magnesium Hydroxide (Milk Of Magnesia 30 Ml Oral.Susp) 30 ml PO DAILY PRN PRN Reason: Constipation Nicotine (Nicotine 21 Mg Patch.Td24) 21 mg TRANSDERMA DAILY PRN PRN Reason: smoking cessation Last Admin: 10/25/24 09:26 Dose: 21 mg Nicotine Polacrilex (Nicotine Polacrilex 2 Mg Gum) 4 mg BUCCAL Q2H PRN PRN Reason: Nicotine Cravings Olanzapine (Olanzapine 5 Mg Tablet) 5 mg PO Q4H PRN PRN Reason: agitation,dissociation Last Admin: 10/22/24 12:22 Dose: 5 mg Olanzapine (Olanzapine 2.5 Mg Tablet) 2.5 mg PO BID [facility] Last Admin: 10/25/24 09:27 Dose: 2.5 mg Saliva Substitute (Dry Mouth [place] 60 Ml [place]) 1 spray MUCOUS MEM Q2H PRN PRN Reason: dry mouth Last Admin: 10/23/24 20:51 Dose: 1 spray Sertraline HCl (Sertraline Hcl 25 Mg Tablet) 25 mg PO DAILY [facility] Last Admin: 10/25/24 09:27 Dose: 25 mg Trazodone HCl (Trazodone Hcl 50 Mg Tablet) 50 mg PO BEDTIME MRX1 PRN PRN Reason: Insomnia Allergies Allergies Allergy/AdvReac Type Severity Reaction Status Date / Time No Known Allergies Allergy Verified 07/17/23 15:13 Assessment & Plan Assessment & Plan (1) MDD (major depressive disorder), recurrent episode, moderate: Status: Acute Code(s): F33.1 - Major depressive disorder, recurrent, moderate (2) Suicidal ideation: Status: Acute Code(s): R45.851 - Suicidal ideations (3) OCD (obsessive compulsive disorder): Status: Acute Code(s): F42.9 - Obsessive-compulsive disorder, unspecified (4) PTSD (post-traumatic stress disorder): Status: Acute Code(s): F43.10 - Post-traumatic stress disorder, unspecified (5) Panic disorder: Status: Acute Code(s): F41.0 - Panic disorder [episodic paroxysmal anxiety] Plan 10/20 remains with considerable anxiety; loose stool; will hold zoloft and continue w/ clomiprmaine 10/21 Patient remains very anxious, lying awake in bed. She did take clomipramine last night though nurse said it took quite a lot of deliberation; however she did not have anymore loose stool agrees it is unlikely due to medication and so agrees to increasing dose 10/22 anxious, treatment resistant. Will not take clomipramine. Will accept Sertraline and scheduled Olanzapine 10/23 continue to encourage treatment 10/25 Nutrition Consult-anorexia, weight loss DC Sertraline Anafranil 25 mg HS-per consult for ECT with Dr. Mcleod Increase Klonopin to 1 mg tid prn Hospitalist/Surgical/GI consult-missed post op appt for lap ben-diarrhea CBC, CMP PLAN: Admit, CV, 15 minute checks Klonopin to 0.5 mg tid-scheduled Sertraline 25 mg daily DC Anafranil- pt will not accept it Olanzapine 5 mg q4h prn agitation Olanzepine 5 mg bid Encourage full milieu Collateral Contact Diagnostics as needed EKG- second request/order Reason for continued inpatient stay Substantial Risk for: rapid decompensation and med/psych decompensation Time Spent With Patient Time: Total time managing care of this patient today ____ minutes.
--- NOTE | 2024-10-25 12:22 | MHC.CLN ---
CONSULT HT65 WT 113# IBW 125#+/-10% PT IS 90% IBW INDICATES ADEQUATE WT FOR HT; BMI 18.9 BORDERLINE WNL REVIEWED WT HX; UBW 61.2KG PT WITH 16% NONSIGNIFICANT WT LOSS X 1YEAR AND 6 MONTHS PT WITH HX OF EATING DISORDER ENN: 1542KCALS, 51G PROTEIN CURRENTLY ON REGULAR DIET PT WITH ENSURE TID IN PLACE PROVIDES 1050KCALS, 60G PROTEIN SUPPLEMENT WILL PROVIDE 68% ESTIMATED CALORIE NEEDS AND 118% ESTIMATED PROTEIN NEEDS WITH 100% ACCEPTANCE MONITOR PO INTAKE AND ENCOURAGE SUPPLEMENT WEIGH WEEKLY
--- NOTE | 2024-10-25 13:12 | P.CNPS_ITS ---
History of Present Illness Date of Service: 10/25/24 Chief Complaint: Unspecified Depressive disorder, OCD Reason for Consult: Consideration of ECT Requesting physician: Rashmi Polo Discussed with referring provider: Yes Sources of Information: patient interviewed, chart reviewed and crisis/core team assessment reviewed HPI Narrative: Patient is a 59-year-old female with what appears to be a very long history of OCD he panic and depression. Referred initially an outside emergency room secondary to severe depression anxiety difficulty functioning with reported thoughts of suicide which the patient is presently denying. There are number of factors leading to increased stress she recently had cholecystectomy, her ex- lost his job and she has concerns regarding her ability to stay in her apartment, of her cat loss of her job secondary to her symptoms and essentially being mostly housebound with intrusive rituals. She was reportedly stable in the past on fluoxetine for many years then went often has not been able to stabilize sense. Preoccupied with intrusive rituals that take up most of her time history of eating disorder recent cholecystectomy and significant weight loss. Patient has basically been eating a liquid diet for grave than a year has had significant decline in functioning over the past 2 years markedly worsening over the past few weeks While on the unit the patient has been often room bound with marked rituals before she can move and now including poking herself in the eye as part of a ritual and multiple other rituals involving eating bathroom moving that taking up much for day increasingly unable to function intrusive thoughts at times that she would be better off Past Psychiatric History: Inpt: [facility] 08/2024, [facility] 03/2024 Respite: [facility]> 10years ago OP: Just completed an intake with [facility] and is hopeful. Will have psychopharm eval 11/13/24. Reports eating disorder sx by history-restrictive Past medication trials: prozac, clonazepam, lexapro, celexa, paxil, luvox Review of Systems Constitutional: Denies chills and Denies fever(s) Cardiovascular: Denies chest pain Respiratory: Denies cough Gastrointestinal: Denies vomiting Genitourinary: Reports no additional female genitourinary complaints Psychiatric: Reports depression and Reports panic attacks [facility] Medical History (Updated 10/19/24 @ 16:32 by Rahsmi Polo, [employer]) Panic disorder PTSD (post-traumatic stress disorder) OCD (obsessive compulsive disorder) Narrative: History of bladder stimulator Narrative: Recent cholecystectomy Family History: Bipolar-father, 2 brothers Social History: Born/raised in [place]. Raised by mother, one sister, two brothers father was not close. Struggled with developmental milestones-required extra help in school. Graduated high school. x 22 years and . One adult daughter. She lives alone. 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 Substance History: denies Trauma History: Affirms- father, Diagnostics Vital Signs (24Hr): Vital Signs - 24 hr 10/24/24 20:00 10/25/24 08:00 Temperature 98.8 F 97.7 F Pulse Rate 75 58 Respiratory Rate 16 16 Blood Pressure 123/79 122/60 Pulse Oximetry 100 97 Oxygen Delivery Method Room Air Room Air BMI result Body Mass Index 18.9 Mental Status Exam Mental Status Exam Patient Appearance: Fatigued and Disheveled Patient Orientation: Person, Place, Time and Situation Level of Consciousness: Alert Patient Behavior: Guarded, Talkative, Cooperative, Suspicious, Anxious, Resistive to Care and Poor Eye Contact Mood Description: Suspicious, Withdrawn, Depressed, Fearful, Anxious and Apprehensive Affect Description: Apprehensive Patient Cognition Impaired: No Ability to Follow Directions: Fair Speech Pattern: Spontaneous Speech Memory Description: Episodic Impaired Hallucinations: None Delusions: Paranoid Ideation Perceptual Disturbances: Depersonalization and Derealization Thought Process: Rumination Thought Content: positive for Obsessional Thoughts, positive for Circumstantial, positive for Perseveration and positive for Preoccupation Depressive Symptoms: Increased Anxiety, Feelings of Worthlessness, Hopelessness, Increased Fatigue, Loss of Energy and Difficulty Concentrating Judgement: Poor Judgement and Insight: Patient irritable dysphoric hopeless helpless marked intrusive ritualistic behavior unable at this time to describe the thoughts behind it but an intrusive feeling that something catastrophic will happened if she does not complete the action Medications Medications Current Medications Acetaminophen (Acetaminophen 325 Mg Tablet) 650 mg PO Q6H PRN PRN Reason: Headache/Pain, Scale 1-10 Al Hydroxide/Mg Hydroxide (Magnesium Hydrox/Alum Hydrox 30 Ml Oral.Susp) 30 ml PO Q6H PRN PRN Reason: Heartburn/Nausea Carbamide Peroxide (Carbamide Peroxide 6.5% Otic 15 Ml Drpbtl) 5 drop EAR-BOTH BID PRN PRN Reason: sx of ear blocking Stop: 10/27/24 14:05 Clonazepam (Clonazepam 0.5 Mg Tablet) 0.5 mg PO TID PRN PRN Reason: Anxiety Last Admin: 10/25/24 09:26 Dose: 0.5 mg Hydroxyzine HCl (Hydroxyzine Hcl 25 Mg Tablet) 25 mg PO Q6H PRN PRN Reason: mild anxiety Last Admin: 10/19/24 11:01 Dose: 25 mg Loperamide HCl (Loperamide Hcl 2 Mg Capsule) 4 mg PO Q6H PRN PRN Reason: loose stool Magnesium Hydroxide (Milk Of Magnesia 30 Ml Oral.Susp) 30 ml PO DAILY PRN PRN Reason: Constipation Nicotine (Nicotine 21 Mg Patch.Td24) 21 mg TRANSDERMA DAILY PRN PRN Reason: smoking cessation Last Admin: 10/25/24 09:26 Dose: 21 mg Nicotine Polacrilex (Nicotine Polacrilex 2 Mg Gum) 4 mg BUCCAL Q2H PRN PRN Reason: Nicotine Cravings Olanzapine (Olanzapine 5 Mg Tablet) 5 mg PO Q4H PRN PRN Reason: agitation,dissociation Last Admin: 10/22/24 12:22 Dose: 5 mg Olanzapine (Olanzapine 2.5 Mg Tablet) 2.5 mg PO BID KIMI Last Admin: 10/25/24 09:27 Dose: 2.5 mg Saliva Substitute (Dry Mouth [place] 60 Ml [place]) 1 spray MUCOUS MEM Q2H PRN PRN Reason: dry mouth Last Admin: 10/23/24 20:51 Dose: 1 spray Sertraline HCl (Sertraline Hcl 25 Mg Tablet) 25 mg PO DAILY [facility] Last Admin: 10/25/24 09:27 Dose: 25 mg Trazodone HCl (Trazodone Hcl 50 Mg Tablet) 50 mg PO BEDTIME MRX1 PRN PRN Reason: Insomnia Allergies Allergies Allergy/AdvReac Type Severity Reaction Status Date / Time No Known Allergies Allergy Verified 07/17/23 15:13 Assessment & Plan Assessment & Plan (1) OCD (obsessive compulsive disorder): Status: Acute Code(s): F42.9 - Obsessive-compulsive disorder, unspecified (2) PTSD (post-traumatic stress disorder): Status: Acute Code(s): F43.10 - Post-traumatic stress disorder, unspecified (3) Hx laparoscopic cholecystectomy: Status: Acute Code(s): Z90.49 - Acquired absence of other specified parts of digestive tract Plan Literature given discussed with patient medication options intensive outpatient counseling options including might look at possibility of [place] [facility] treatment program if possible. I did discuss with the patient given the severity of her symptoms inability to function combined anxiety and depressive symptoms intrusive OCD that ECT although not a primary treatment for OCD given the patient's to history of worsening functioning thought she would be better off inability to function outpatient setting ECT might help her regroup more acutely decrease some of more intense symptoms including accidental self-harm by her ritualistic physical behavior . Patient at this point perhaps does not seem to tolerate SSRIs have not been effective agree with use of Anafranil antipsychotic augmentation can also sometimes be helpful continue benzodiazepine patient to consider ECT agree with medication treatment trial 1st. Would benefit from experienced outpatient clinician when discharged dealing with OCD treatment no clear medical contraindications noted Total time managing care of this patient today _50___ minutes. Patient educated on: diagnosis, medication risk/benefits, ECT and therapeutic strategies Informed Consent: further education needed
[2024-10-25 20:00] VITALS: BP 139/67; PULSE 94; RESP 16; TEMP 36.1; O2SAT 98
[2024-10-26 08:00] VITALS: BP 108/56; PULSE 55; RESP 15; TEMP 36.8; O2SAT 97
[2024-10-26] MEDS: Nicotine 21 MG PATCH.TD24 TRANSDERMA (09:21)
--- NOTE | 2024-10-26 12:37 | P.CONGS_ITS ---
History of Present Illness Consult details Consult date: 10/26/24 Narrative: 59-year-old female admitted to the psych unit on 10/19/2024 because of suicidal ideations. She has a long history of history of compulsive disorder, major depressive disorder and PTSD. She also undergone laparoscopic cholecystectomy in [facility] last 10/10/2024 and was supposed to be seen there in 2 weeks. However, since she been admitted here, she has been unable to have a follow up I was therefore requested to do a postop check on the patient She denies significant pain. She has good oral intake. Review of Systems Constitutional: Constitutional: Denies chills and Denies fever(s) Cardiovascular: Cardiovascular: Denies chest pain Respiratory: Respiratory: Denies cough Gastrointestinal: Gastrointestinal: Denies vomiting Genitourinary: Genitourinary: Reports no additional female genitourinary complaints Psychiatric: Psychiatric: Reports depression and Reports panic attacks PMF Past Medical History Medical History (Updated 10/19/24 @ 16:32 by Rashmi Polo APRN) Panic disorder PTSD (post-traumatic stress disorder) OCD (obsessive compulsive disorder) Family History Family History Brother Bipolar disorder, unspecified Psychosis Social History Social History (Updated 07/17/23 @ 20:31 by eNli Chery LCSW) Household Members: None Housing: Apartment Do you presently have visiting nurse or other home services: No Alcohol intake: never Patient Tobacco Use Status: Current everyday Tobacco user Tobacco use type: Cigarette Cigarette Packs Per Day: 1.5 Cigarettes Per Day: 30.0 Years Smoked: 35 Smoked in Last 30 Days: Yes e-Cigarette/Vaping Use: Never Used Patient Interested in Nicotine Replacement: No Patient Given Instructions on How to Stop Smoking: No Second Hand Smoke Exposure: Yes Currently Displaying Signs/Symptoms of Drug Intoxication Withdrawal: No Have you been hit, kicked, punched, or otherwise hurt by someone within the past year? If so, by whom?: No Do you feel safe in your current relationship?: No Current Relationship Is there a partner from a previous relationship who is making you feel unsafe now?: No Are you made to feel afraid or neglected: No Spiritual Healthcare Practices: none Yazdanism Healthcare Practices: none Cultural Healthcare Practices: none Advance Directives: No Advance Directives Information Provided: No Do you have thoughts of harming others: None Do you have a plan to hurt others: No Plan Recently lost weight without trying: Yes How much weight loss: 34pounds or more Eating poorly because of decreased appetite: Yes Nutrition screen score: 7 Nutrition Risks: Poor intake 0-25% >4 days Patient : No : No Poor oral hygiene: No service: No Current occupational status: unemployed Sexual orientation: Straight/Heterosexual Gender identity: Female Meds Allergies Allergy/AdvReac Type Severity Reaction Status Date / Time No Known Allergies Allergy Verified 07/17/23 15:13 Active Medications: Current Medications Acetaminophen (Acetaminophen 325 Mg Tablet) 650 mg PO Q6H PRN PRN Reason: Headache/Pain, Scale 1-10 Al Hydroxide/Mg Hydroxide (Magnesium Hydrox/Alum Hydrox 30 Ml Oral.Susp) 30 ml PO Q6H PRN PRN Reason: Heartburn/Nausea Carbamide Peroxide (Carbamide Peroxide 6.5% Otic 15 Ml Drpbtl) 5 drop EAR-BOTH BID PRN PRN Reason: sx of ear blocking Stop: 10/27/24 14:05 Clomipramine HCl (Clomipramine Hcl 25 Mg Capsule) 25 mg PO BEDTIME KIMI Last Admin: 10/25/24 20:26 Dose: 25 mg Clonazepam (Clonazepam 1 Mg Tablet) 1 mg PO TID PRN PRN Reason: Anxiety Last Admin: 10/26/24 09:24 Dose: 1 mg Hydroxyzine HCl (Hydroxyzine Hcl 25 Mg Tablet) 25 mg PO Q6H PRN PRN Reason: mild anxiety Last Admin: 10/19/24 11:01 Dose: 25 mg Loperamide HCl (Loperamide Hcl 2 Mg Capsule) 4 mg PO Q6H PRN PRN Reason: loose stool Last Admin: 10/25/24 15:42 Dose: 4 mg Magnesium Hydroxide (Milk Of Magnesia 30 Ml Oral.Susp) 30 ml PO DAILY PRN PRN Reason: Constipation Nicotine (Nicotine 21 Mg Patch.Td24) 21 mg TRANSDERMA DAILY PRN PRN Reason: smoking cessation Last Admin: 10/26/24 09:21 Dose: 21 mg Nicotine Polacrilex (Nicotine Polacrilex 2 Mg Gum) 4 mg BUCCAL Q2H PRN PRN Reason: Nicotine Cravings Olanzapine (Olanzapine 5 Mg Tablet) 5 mg PO Q4H PRN PRN Reason: agitation,dissociation Last Admin: 10/22/24 12:22 Dose: 5 mg Olanzapine (Olanzapine 2.5 Mg Tablet) 2.5 mg PO BID KIMI Last Admin: 10/26/24 09:21 Dose: 2.5 mg Saliva Substitute (Dry Mouth [place] 60 Ml [place]) 1 spray MUCOUS MEM Q2H PRN PRN Reason: dry mouth Last Admin: 10/23/24 20:51 Dose: 1 spray Trazodone HCl (Trazodone Hcl 50 Mg Tablet) 50 mg PO BEDTIME MRX1 PRN PRN Reason: Insomnia Home Medications ?Medication ?Instructions ?Recorded ?Confirmed ?Last Taken ?Type clonazepam 0.5 mg tablet 0.5 mg PO BID 10/18/2410/1810/18/24 20:12 History Physical Exam Vital Signs: Vital Signs: Last Vital Signs Temp 98.2 F 10/26/24 08:00 Pulse 55 10/26/24 08:00 Resp 15 10/26/24 08:00 BP 108/56 L 10/26/24 08:00 Pulse Ox 97 10/26/24 08:00 O2 Del Method Room Air 10/26/24 08:00 BMI result Body Mass Index 18.9 Const: General: comfortable and no acute distress Eyes: Sclerae: sclerae normal Resp: Effort & Inspection: normal respiratory effort Cardio: Rate: regular rate GI: Other: All incisions are well healed Palpation (GI): Soft to palpation, not firm, nontender and no guarding Results Labs Labs: All other labs normal. Assessment and Plan (1) Hx laparoscopic cholecystectomy: Status: Acute She had undergone laparoscopic cholecystectomy in [facility] last October 10, 2024. She has been unable to follow up with her surgeon as she has been admitted here for her gastric issues. She appears to be doing very well postoperatively. She has good GI functions. She denies any significant pain on her incisions. All incisions are well healed. I removed all her Steri-Strips I advised her to avoid lifting anything more than 20 lb for at least 2 more weeks. She can otherwise call her done to follow up on a p.r.n. basis. Procedures Date of Service Date of Service: 10/28/24
[2024-10-26 20:00] VITALS: BP 129/95; PULSE 65; TEMP 37.8; O2SAT 100
--- NOTE | 2024-10-27 05:48 | P.PNPSI_ITS ---
Subjective Subjective Date of Service: 10/27/24 Reason For Visit: Unspecified Depressive disorder, OCD Interim History: Pt seen and discussed with the team. States she is relieved that she has been cleared by surgery post lap ben as the GI sx she has been having I was not sure if it was medicine or because I lost my gall bladder. Tolerating medications, declines titration today Slept 7 hours Medication Compliance: Yes Side effects from medications: No Attending Groups: No Review of Systems Medical Review of Systems: unchanged Review of Systems Review of Systems OK right now Mental Status Exam Mental Status Exam Patient Appearance: Fatigued and Disheveled Patient Orientation: Person, Place, Time and Situation Level of Consciousness: Alert Patient Behavior: Guarded, Talkative, Cooperative, Suspicious, Anxious, Resistive to Care and Poor Eye Contact Mood Description: Suspicious, Withdrawn, Depressed, Fearful, Anxious and Apprehensive Affect Description: Apprehensive Patient Cognition Impaired: No Ability to Follow Directions: Fair Speech Pattern: Spontaneous Speech Memory Description: Episodic Impaired Hallucinations: None Delusions: Paranoid Ideation Perceptual Disturbances: Depersonalization and Derealization Thought Process: Rumination Thought Content: positive for Obsessional Thoughts, positive for Circumstantial, positive for Perseveration and positive for Preoccupation Depressive Symptoms: Increased Anxiety, Feelings of Worthlessness, Hopelessness, Increased Fatigue, Loss of Energy and Difficulty Concentrating Judgement: Poor Judgement and Insight: Patient irritable dysphoric hopeless helpless marked intrusive ritualistic behavior unable at this time to describe the thoughts behind it but an intrusive feeling that something catastrophic will happened if she does not complete the action Diagnostics Vital Signs (24Hr): Vital Signs - 24 hr 10/26/24 08:00 10/26/24 20:00 Temperature 98.2 F 100.0 F Pulse Rate 55 65 Respiratory Rate 15 Blood Pressure 108/56 L 129/95 H Pulse Oximetry 97 100 Oxygen Delivery Method Room Air Room Air BMI result Body Mass Index 18.9 Medications Medications Current Medications Acetaminophen (Acetaminophen 325 Mg Tablet) 650 mg PO Q6H PRN PRN Reason: Headache/Pain, Scale 1-10 Al Hydroxide/Mg Hydroxide (Magnesium Hydrox/Alum Hydrox 30 Ml Oral.Susp) 30 ml PO Q6H PRN PRN Reason: Heartburn/Nausea Carbamide Peroxide (Carbamide Peroxide 6.5% Otic 15 Ml Drpbtl) 5 drop EAR-BOTH BID PRN PRN Reason: sx of ear blocking Stop: 10/27/24 14:05 Clomipramine HCl (Clomipramine Hcl 25 Mg Capsule) 25 mg PO BEDTIME KMII Last Admin: 10/26/24 20:13 Dose: 25 mg Clonazepam (Clonazepam 1 Mg Tablet) 1 mg PO TID PRN PRN Reason: Anxiety Last Admin: 10/26/24 20:12 Dose: 1 mg Hydroxyzine HCl (Hydroxyzine Hcl 25 Mg Tablet) 25 mg PO Q6H PRN PRN Reason: mild anxiety Last Admin: 10/19/24 11:01 Dose: 25 mg Loperamide HCl (Loperamide Hcl 2 Mg Capsule) 4 mg PO Q6H PRN PRN Reason: loose stool Last Admin: 10/25/24 15:42 Dose: 4 mg Magnesium Hydroxide (Milk Of Magnesia 30 Ml Oral.Susp) 30 ml PO DAILY PRN PRN Reason: Constipation Nicotine (Nicotine 21 Mg Patch.Td24) 21 mg TRANSDERMA DAILY PRN PRN Reason: smoking cessation Last Admin: 10/26/24 09:21 Dose: 21 mg Nicotine Polacrilex (Nicotine Polacrilex 2 Mg Gum) 4 mg BUCCAL Q2H PRN PRN Reason: Nicotine Cravings Olanzapine (Olanzapine 5 Mg Tablet) 5 mg PO Q4H PRN PRN Reason: agitation,dissociation Last Admin: 10/22/24 12:22 Dose: 5 mg Olanzapine (Olanzapine 2.5 Mg Tablet) 2.5 mg PO BID KIMI Last Admin: 10/26/24 20:13 Dose: 2.5 mg Saliva Substitute (Dry Mouth [place] 60 Ml [place]) 1 spray MUCOUS MEM Q2H PRN PRN Reason: dry mouth Last Admin: 10/23/24 20:51 Dose: 1 spray Trazodone HCl (Trazodone Hcl 50 Mg Tablet) 50 mg PO BEDTIME MRX1 PRN PRN Reason: Insomnia Allergies Allergies Allergy/AdvReac Type Severity Reaction Status Date / Time No Known Allergies Allergy Verified 07/17/23 15:13 Assessment & Plan Assessment & Plan (1) MDD (major depressive disorder), recurrent episode, moderate: Status: Acute Code(s): F33.1 - Major depressive disorder, recurrent, moderate (2) OCD (obsessive compulsive disorder): Status: Acute Code(s): F42.9 - Obsessive-compulsive disorder, unspecified (3) PTSD (post-traumatic stress disorder): Status: Acute Code(s): F43.10 - Post-traumatic stress disorder, unspecified Plan 10/27: Tolerating Anafranil, compliant with dosing, not wanting to titrate at t his time. Pt continues to be significantly symptomatic with SI. Gradually, she is allowing team to work with her. Reason for continued inpatient stay Substantial Risk for: rapid decompensation and med/psych decompensation Time Spent With Patient Time: Total time managing care of this patient today ____ minutes.
[2024-10-27 08:00] VITALS: BP 99/50; PULSE 51; RESP 18; TEMP 36.2; O2SAT 96
[2024-10-27] MEDS: Nicotine 21 MG PATCH.TD24 TRANSDERMA (09:02)
[2024-10-27 20:00] VITALS: BP 123/75; PULSE 71; RESP 16; TEMP 36.9; O2SAT 100
--- NOTE | 2024-10-28 05:30 | HO.PSYCHPN ---
Subjective Subjective Date of Service: 10/28/24 Reason For Visit: Unspecified Depressive disorder, OCD Interim History: Pt seen in milieu, reviewed with team. Observed with ritualistic behaviors, I have to do this you know. Continues to not have interest in medicine titration, however this was encouraged with rationale. Reports ECT is off the table at this time as a treatment option. You just don't get it . The medicine makes my mouth dry- if I drink more, I have to pee more and I don't like that because then I have to stay in the bathroom forever and the rituals are worse. Medication Compliance: Yes Side effects from medications: Yes Attending Groups: No Review of Systems Acute medical concerns: No Review of Systems Review of Systems If I drink more, then I will need the bathroom more which will increase my OCD Mental Status Exam Mental Status Exam Patient Appearance: Fatigued and Disheveled Patient Orientation: Person, Place, Time and Situation Level of Consciousness: Alert Patient Behavior: Talkative, Cooperative, Anxious, Resistive to Care and Poor Eye Contact Mood Description: Withdrawn, Depressed, Fearful and Anxious Affect Description: Anxious Patient Cognition Impaired: No Ability to Follow Directions: Fair Speech Pattern: Spontaneous Speech Memory Description: Episodic Impaired Hallucinations: None Perceptual Disturbances: Depersonalization and Derealization Thought Process: Rumination Thought Content: positive for Obsessional Thoughts, positive for Circumstantial, positive for Perseveration, positive for Preoccupation and positive for Suicidal Ideation (yes at times she states, related to hopelessness) Depressive Symptoms: Increased Anxiety, Feelings of Worthlessness, Hopelessness, Increased Fatigue, Loss of Energy and Difficulty Concentrating Judgement: Poor Diagnostics Vital Signs (24Hr): Vital Signs - 24 hr 10/27/24 08:00 10/27/24 20:00 Temperature 97.2 F 98.4 F Pulse Rate 51 71 Respiratory Rate 18 16 Blood Pressure 99/50 L 123/75 Pulse Oximetry 96 100 Oxygen Delivery Method Room Air Room Air BMI result Body Mass Index 18.9 Medications Medications Current Medications Acetaminophen (Acetaminophen 325 Mg Tablet) 650 mg PO Q6H PRN PRN Reason: Headache/Pain, Scale 1-10 Al Hydroxide/Mg Hydroxide (Magnesium Hydrox/Alum Hydrox 30 Ml Oral.Susp) 30 ml PO Q6H PRN PRN Reason: Heartburn/Nausea Clomipramine HCl (Clomipramine Hcl 25 Mg Capsule) 25 mg PO BEDTIME KIMI Last Admin: 10/27/24 21:07 Dose: 25 mg Clonazepam (Clonazepam 1 Mg Tablet) 1 mg PO TID PRN PRN Reason: Anxiety Last Admin: 10/27/24 19:37 Dose: 1 mg Hydroxyzine HCl (Hydroxyzine Hcl 25 Mg Tablet) 25 mg PO Q6H PRN PRN Reason: mild anxiety Last Admin: 10/19/24 11:01 Dose: 25 mg Loperamide HCl (Loperamide Hcl 2 Mg Capsule) 4 mg PO Q6H PRN PRN Reason: loose stool Last Admin: 10/25/24 15:42 Dose: 4 mg Magnesium Hydroxide (Milk Of Magnesia 30 Ml Oral.Susp) 30 ml PO DAILY PRN PRN Reason: Constipation Nicotine (Nicotine 21 Mg Patch.Td24) 21 mg TRANSDERMA DAILY PRN PRN Reason: smoking cessation Last Admin: 10/27/24 09:02 Dose: 21 mg Nicotine Polacrilex (Nicotine Polacrilex 2 Mg Gum) 4 mg BUCCAL Q2H PRN PRN Reason: Nicotine Cravings Olanzapine (Olanzapine 5 Mg Tablet) 5 mg PO Q4H PRN PRN Reason: agitation,dissociation Last Admin: 10/22/24 12:22 Dose: 5 mg Olanzapine (Olanzapine 2.5 Mg Tablet) 2.5 mg PO BID KIMI Last Admin: 10/27/24 21:07 Dose: 2.5 mg Saliva Substitute (Dry Mouth [place] 60 Ml [place]) 1 spray MUCOUS MEM Q2H PRN PRN Reason: dry mouth Last Admin: 10/23/24 20:51 Dose: 1 spray Trazodone HCl (Trazodone Hcl 50 Mg Tablet) 50 mg PO BEDTIME MRX1 PRN PRN Reason: Insomnia Allergies Allergies Allergy/AdvReac Type Severity Reaction Status Date / Time No Known Allergies Allergy Verified 07/17/23 15:13 Assessment & Plan Assessment & Plan (1) PTSD (post-traumatic stress disorder): Status: Acute Code(s): F43.10 - Post-traumatic stress disorder, unspecified (2) OCD (obsessive compulsive disorder): Status: Acute Code(s): F42.9 - Obsessive-compulsive disorder, unspecified (3) MDD (major depressive disorder), recurrent episode, moderate: Status: Acute Code(s): F33.1 - Major depressive disorder, recurrent, moderate Plan 10/28: Continue to encourage treatment. Reason for continued inpatient stay Substantial Risk for: rapid decompensation and med/psych decompensation Time Spent With Patient Time: Total time managing care of this patient today ____ minutes.
[2024-10-28 07:54] VITALS: BP 104/55; PULSE 53; RESP 18; TEMP 36.4; O2SAT 96
[2024-10-28 19:42] VITALS: BP 127/74; PULSE 72; RESP 16; TEMP 36.9; O2SAT 100
[2024-10-29 07:53] VITALS: BP 113/56; PULSE 54; RESP 18; TEMP 36.4; O2SAT 96
[2024-10-29] MEDS: Dry Mouth Spray 60 ML SPRAY 1 SPRAY MUCOUS MEM (08:32)
[2024-10-29] MEDS: Nicotine 21 MG PATCH.TD24 TRANSDERMA (08:33)
--- NOTE | 2024-10-29 15:45 | HO.PSYCHPN ---
Subjective Subjective Date of Service: 10/29/24 Reason For Visit: Unspecified Depressive disorder, OCD Interim History: It is still the dry mouth, unable to drink more as I don't want to pee more issue Yes, I will look at literature regarding [place] [facility]. In milieu, observed intrusive ritualistic behaviors. Declines help in breaking the cycle. Today, reports needing to move her feet in a certain way 7 times before moving on. Discussed interrupting the thought process, no, I have to finish the cycle. Declines Anafranil titration. I know you want me to, let me think about it. Medication Compliance: Yes Side effects from medications: Yes Attending Groups: No Review of Systems Acute medical concerns: No Review of Systems Review of Systems intrusive ritualistic symptoms Mental Status Exam Mental Status Exam Patient Appearance: Fatigued and Disheveled Patient Orientation: Person, Place, Time and Situation Level of Consciousness: Alert Patient Behavior: Talkative, Cooperative, Anxious, Resistive to Care and Poor Eye Contact Mood Description: Withdrawn, Depressed, Fearful and Anxious Affect Description: Anxious Patient Cognition Impaired: No Ability to Follow Directions: Fair Speech Pattern: Spontaneous Speech Memory Description: Episodic Impaired Hallucinations: None Perceptual Disturbances: Depersonalization and Derealization Thought Process: Rumination Thought Content: positive for Obsessional Thoughts, positive for Circumstantial, positive for Perseveration, positive for Preoccupation and positive for Suicidal Ideation (yes at times she states, related to hopelessness) Depressive Symptoms: Increased Anxiety, Feelings of Worthlessness, Hopelessness, Increased Fatigue, Loss of Energy and Difficulty Concentrating Judgement: Poor Diagnostics Vital Signs (24Hr): Vital Signs - 24 hr 10/28/24 19:42 10/29/24 07:53 Temperature 98.4 F 97.6 F Pulse Rate 72 54 Respiratory Rate 16 18 Blood Pressure 127/74 113/56 L Pulse Oximetry 100 96 Oxygen Delivery Method Room Air Room Air BMI result Body Mass Index 18.9 Medications Medications Current Medications Acetaminophen (Acetaminophen 325 Mg Tablet) 650 mg PO Q6H PRN PRN Reason: Headache/Pain, Scale 1-10 Al Hydroxide/Mg Hydroxide (Magnesium Hydrox/Alum Hydrox 30 Ml Oral.Susp) 30 ml PO Q6H PRN PRN Reason: Heartburn/Nausea Clomipramine HCl (Clomipramine Hcl 25 Mg Capsule) 25 mg PO BEDTIME KIMI Last Admin: 10/28/24 20:40 Dose: 25 mg Clonazepam (Clonazepam 1 Mg Tablet) 1 mg PO TID PRN PRN Reason: Anxiety Last Admin: 10/29/24 15:37 Dose: 1 mg Hydroxyzine HCl (Hydroxyzine Hcl 25 Mg Tablet) 25 mg PO Q6H PRN PRN Reason: mild anxiety Last Admin: 10/19/24 11:01 Dose: 25 mg Loperamide HCl (Loperamide Hcl 2 Mg Capsule) 4 mg PO Q6H PRN PRN Reason: loose stool Last Admin: 10/25/24 15:42 Dose: 4 mg Magnesium Hydroxide (Milk Of Magnesia 30 Ml Oral.Susp) 30 ml PO DAILY PRN PRN Reason: Constipation Nicotine (Nicotine 21 Mg Patch.Td24) 21 mg TRANSDERMA DAILY PRN PRN Reason: smoking cessation Last Admin: 10/29/24 08:33 Dose: 21 mg Nicotine Polacrilex (Nicotine Polacrilex 2 Mg Gum) 4 mg BUCCAL Q2H PRN PRN Reason: Nicotine Cravings Olanzapine (Olanzapine 5 Mg Tablet) 5 mg PO Q4H PRN PRN Reason: agitation,dissociation Last Admin: 10/22/24 12:22 Dose: 5 mg Olanzapine (Olanzapine 2.5 Mg Tablet) 2.5 mg PO BID KIMI Last Admin: 10/29/24 08:29 Dose: 2.5 mg Saliva Substitute (Dry Mouth [place] 60 Ml [place]) 1 spray MUCOUS MEM Q2H PRN PRN Reason: dry mouth Last Admin: 10/29/24 08:32 Dose: 1 spray Trazodone HCl (Trazodone Hcl 50 Mg Tablet) 50 mg PO BEDTIME MRX1 PRN PRN Reason: Insomnia Allergies Allergies Allergy/AdvReac Type Severity Reaction Status Date / Time No Known Allergies Allergy Verified 07/17/23 15:13 Assessment & Plan Assessment & Plan (1) OCD (obsessive compulsive disorder): Status: Acute Code(s): F42.9 - Obsessive-compulsive disorder, unspecified (2) PTSD (post-traumatic stress disorder): Status: Acute Code(s): F43.10 - Post-traumatic stress disorder, unspecified (3) MDD (major depressive disorder), recurrent episode, moderate: Status: Acute Code(s): F33.1 - Major depressive disorder, recurrent, moderate Assessment and Plan: 10/29: Continue to encourage treatment. Literature given by Dr. Mcleod Will increase Klonopin today. Plan Literature given discussed with patient medication options intensive outpatient counseling options including might look at possibility of [place] [facility] program if possible. I did discuss with the patient given the severity of her symptoms inability to function combined anxiety and depressive symptoms intrusive OCD that ECT although not a primary treatment for OCD given the patient's to history of worsening functioning thought she would be better off inability to function outpatient setting ECT might help her regroup more acutely decrease some of more intense symptoms including accidental self-harm by her ritualistic physical behavior . Patient at this point perhaps does not seem to tolerate SSRIs have not been effective agree with use of Anafranil antipsychotic augmentation can also sometimes be helpful continue benzodiazepine patient to consider ECT agree with medication treatment trial 1st. Would benefit from experienced outpatient clinician when discharged dealing with OCD treatment no clear medical contraindications noted Reason for continued inpatient stay Substantial Risk for: rapid decompensation and med/psych decompensation Time Spent With Patient Time: Total time managing care of this patient today ____ minutes.
[2024-10-29 20:00] VITALS: BP 123/98; PULSE 68; RESP 16; TEMP 36.7; O2SAT 98
[2024-10-30 07:48] VITALS: BP 105/54; PULSE 55; RESP 18; TEMP 36.8; O2SAT 96
[2024-10-30] MEDS: Nicotine 21 MG PATCH.TD24 TRANSDERMA (08:44)
--- NOTE | 2024-10-30 11:00 | P.PNPSI_ITS ---
Subjective Subjective Date of Service: 10/30/24 Reason For Visit: Unspecified Depressive disorder, OCD Subjective Notes: Conditional Voluntary Healthcare Proxy: No Guardianship: No Medical Problems Affecting Mental Status: No Interim History: Continues with significant struggles with OCD sx, ritualistic behaviors. Provided an article to pt regarding [place] [facility] residential treatment program for review. It is too long, I cannot go there. Agreed with her RN to increase Anafranil this evening. Medication Compliance: Yes Side effects from medications: Yes (dry mouth) Attending Groups: Intermittent Review of Systems Medical Review of Systems: unchanged Review of Systems Review of Systems overactive bladder eating issues severe OCD sx/ritualistic behaviors Mental Status Exam Mental Status Exam Patient Appearance: Fatigued and Disheveled Patient Orientation: Person, Place, Time and Situation Level of Consciousness: Alert Patient Behavior: Talkative, Cooperative, Anxious, Resistive to Care and Poor Eye Contact Mood Description: Withdrawn, Depressed, Fearful and Anxious Affect Description: Anxious Patient Cognition Impaired: No Ability to Follow Directions: Fair Speech Pattern: Spontaneous Speech Memory Description: Episodic Impaired Hallucinations: None Perceptual Disturbances: Depersonalization and Derealization Thought Process: Rumination Thought Content: positive for Obsessional Thoughts, positive for Circumstantial, positive for Perseveration, positive for Preoccupation and positive for Suicidal Ideation (yes at times she states, related to hopelessness) Depressive Symptoms: Increased Anxiety, Feelings of Worthlessness, Hopelessness, Increased Fatigue, Loss of Energy and Difficulty Concentrating Judgement: Poor Diagnostics Vital Signs (24Hr): Vital Signs - 24 hr 10/29/24 20:00 10/30/24 07:48 Temperature 98.0 F 98.2 F Pulse Rate 68 55 Respiratory Rate 16 18 Blood Pressure 123/98 H 105/54 L Pulse Oximetry 98 96 Oxygen Delivery Method Room Air Room Air BMI result Body Mass Index 18.9 Medications Medications Current Medications Acetaminophen (Acetaminophen 325 Mg Tablet) 650 mg PO Q6H PRN PRN Reason: Headache/Pain, Scale 1-10 Al Hydroxide/Mg Hydroxide (Magnesium Hydrox/Alum Hydrox 30 Ml Oral.Susp) 30 ml PO Q6H PRN PRN Reason: Heartburn/Nausea Clomipramine HCl (Clomipramine Hcl 25 Mg Capsule) 25 mg PO BEDTIME KIMI Last Admin: 10/29/24 20:47 Dose: 25 mg Clonazepam (Clonazepam 0.5 Mg Tablet) 1.5 mg PO TID PRN PRN Reason: Anxiety Last Admin: 10/30/24 08:44 Dose: 1.5 mg Hydroxyzine HCl (Hydroxyzine Hcl 25 Mg Tablet) 25 mg PO Q6H PRN PRN Reason: mild anxiety Last Admin: 10/19/24 11:01 Dose: 25 mg Loperamide HCl (Loperamide Hcl 2 Mg Capsule) 4 mg PO Q6H PRN PRN Reason: loose stool Last Admin: 10/25/24 15:42 Dose: 4 mg Magnesium Hydroxide (Milk Of Magnesia 30 Ml Oral.Susp) 30 ml PO DAILY PRN PRN Reason: Constipation Nicotine (Nicotine 21 Mg Patch.Td24) 21 mg TRANSDERMA DAILY PRN PRN Reason: smoking cessation Last Admin: 10/30/24 08:44 Dose: 21 mg Nicotine Polacrilex (Nicotine Polacrilex 2 Mg Gum) 4 mg BUCCAL Q2H PRN PRN Reason: Nicotine Cravings Olanzapine (Olanzapine 5 Mg Tablet) 5 mg PO Q4H PRN PRN Reason: agitation,dissociation Last Admin: 10/22/24 12:22 Dose: 5 mg Olanzapine (Olanzapine 2.5 Mg Tablet) 2.5 mg PO BID KIMI Last Admin: 10/30/24 08:46 Dose: 2.5 mg Saliva Substitute (Dry Mouth [place] 60 Ml [place]) 1 spray MUCOUS MEM Q2H PRN PRN Reason: dry mouth Last Admin: 10/29/24 08:32 Dose: 1 spray Trazodone HCl (Trazodone Hcl 50 Mg Tablet) 50 mg PO BEDTIME MRX1 PRN PRN Reason: Insomnia Allergies Allergies Allergy/AdvReac Type Severity Reaction Status Date / Time No Known Allergies Allergy Verified 07/17/23 15:13 Assessment & Plan Assessment & Plan (1) OCD (obsessive compulsive disorder): Status: Acute Code(s): F42.9 - Obsessive-compulsive disorder, unspecified (2) PTSD (post-traumatic stress disorder): Status: Acute Code(s): F43.10 - Post-traumatic stress disorder, unspecified (3) MDD (major depressive disorder), recurrent episode, moderate: Status: Acute Code(s): F33.1 - Major depressive disorder, recurrent, moderate Assessment and Plan: 10/29: Continue to encourage treatment. Literature given by Dr. Mcleod Will increase Klonopin today. 10/30: Increase Anafranil to 50 mg HS Pt given an article regarding [place] [facility] residential treatment program with information regarding rationale for treatment success with this modality (her request) Plan Literature given discussed with patient medication options intensive outpatient counseling options including might look at possibility of [place] [facility] treatment program if possible. I did discuss with the patient given the severity of her symptoms inability to function combined anxiety and depressive symptoms intrusive OCD that ECT although not a primary treatment for OCD given the patient's to history of worsening functioning thought she would be better off inability to function outpatient setting ECT might help her regroup more acutely decrease some of more intense symptoms including accidental self-harm by her ritualistic physical behavior . Patient at this point perhaps does not seem to tolerate SSRIs have not been effective agree with use of Anafranil antipsychotic augmentation can also sometimes be helpful continue benzodiazepine patient to consider ECT agree with medication treatment trial 1st. Would benefit from experienced outpatient clinician when discharged dealing with OCD treatment no clear medical contraindications noted Patient educated on: medication risk/benefits Informed Consent: understands Reason for continued inpatient stay Substantial Risk for: rapid decompensation and med/psych decompensation Time Spent With Patient Time: Total time managing care of this patient today ____ minutes.
[2024-10-30 20:00] VITALS: BP 124/60; PULSE 65; RESP 16; TEMP 36.4; O2SAT 100
[2024-10-31 07:55] VITALS: BP 92/55; PULSE 54; RESP 16; TEMP 36.9; O2SAT 98
--- NOTE | 2024-10-31 10:17 | P.PNPSI_ITS ---
Subjective Subjective Date of Service: 10/31/24 Reason For Visit: Unspecified Depressive disorder, OCD Subjective Notes: Conditional Voluntary Healthcare Proxy: No Guardianship: No Medical Problems Affecting Mental Status: No Interim History: Accepted Anafranil increase last evening. You are right, I feel better. Incontinent of urine today. Tearful- nothing has worked for my overactive b ladder Agrees to see urology for other options. Expressed gratitude to team for knowing I am difficult, but really trying to help me. Discussed [place] [facility] residential treatment- too far, too long, what if I get there and cannot do it. Discussed this in a risk vs benefit structure. Medication Compliance: Yes Side effects from medications: Yes (dry mouth- we have spray and lozenges for this SE, she is aware) Attending Groups: Intermittent Review of Systems Acute medical concerns: No Medical Review of Systems: unchanged Review of Systems Review of Systems urinary incontinence is very upsetting for her Mental Status Exam Mental Status Exam Patient Appearance: Fatigued and Disheveled Patient Orientation: Person, Place, Time and Situation Level of Consciousness: Alert Patient Behavior: Talkative, Cooperative, Anxious, Resistive to Care and Poor Eye Contact Mood Description: Withdrawn, Depressed, Fearful and Anxious Affect Description: Anxious Patient Cognition Impaired: No Ability to Follow Directions: Fair Speech Pattern: Spontaneous Speech Memory Description: Episodic Impaired Hallucinations: None Perceptual Disturbances: Depersonalization and Derealization Thought Process: Rumination Thought Content: positive for Obsessional Thoughts, positive for Circumstantial, positive for Perseveration, positive for Preoccupation and positive for Suicidal Ideation (yes at times she states, related to hopelessness) Depressive Symptoms: Increased Anxiety, Feelings of Worthlessness, Hopelessness, Increased Fatigue, Loss of Energy and Difficulty Concentrating Judgement: Poor Diagnostics Vital Signs (24Hr): Vital Signs - 24 hr 10/30/24 20:00 10/31/24 07:55 Temperature 97.6 F 98.4 F Pulse Rate 65 54 Respiratory Rate 16 16 Blood Pressure 124/60 92/55 L Pulse Oximetry 100 98 Oxygen Delivery Method Room Air BMI result Body Mass Index 18.9 Medications Medications Current Medications Acetaminophen (Acetaminophen 325 Mg Tablet) 650 mg PO Q6H PRN PRN Reason: Headache/Pain, Scale 1-10 Al Hydroxide/Mg Hydroxide (Magnesium Hydrox/Alum Hydrox 30 Ml Oral.Susp) 30 ml PO Q6H PRN PRN Reason: Heartburn/Nausea Clomipramine HCl (Clomipramine Hcl 25 Mg Capsule) 50 mg PO BEDTIME KIMI Last Admin: 10/30/24 20:20 Dose: 50 mg Clonazepam (Clonazepam 0.5 Mg Tablet) 1.5 mg PO TID PRN PRN Reason: Anxiety Last Admin: 10/30/24 20:21 Dose: 1.5 mg Hydroxyzine HCl (Hydroxyzine Hcl 25 Mg Tablet) 25 mg PO Q6H PRN PRN Reason: mild anxiety Last Admin: 10/19/24 11:01 Dose: 25 mg Loperamide HCl (Loperamide Hcl 2 Mg Capsule) 4 mg PO Q6H PRN PRN Reason: loose stool Last Admin: 10/25/24 15:42 Dose: 4 mg Magnesium Hydroxide (Milk Of Magnesia 30 Ml Oral.Susp) 30 ml PO DAILY PRN PRN Reason: Constipation Nicotine (Nicotine 21 Mg Patch.Td24) 21 mg TRANSDERMA DAILY PRN PRN Reason: smoking cessation Last Admin: 10/30/24 08:44 Dose: 21 mg Nicotine Polacrilex (Nicotine Polacrilex 2 Mg Gum) 4 mg BUCCAL Q2H PRN PRN Reason: Nicotine Cravings Olanzapine (Olanzapine 5 Mg Tablet) 5 mg PO Q4H PRN PRN Reason: agitation,dissociation Last Admin: 10/22/24 12:22 Dose: 5 mg Olanzapine (Olanzapine 2.5 Mg Tablet) 2.5 mg PO BID KIMI Last Admin: 10/30/24 20:21 Dose: 2.5 mg Saliva Substitute (Dry Mouth [place] 60 Ml [place]) 1 spray MUCOUS MEM Q2H PRN PRN Reason: dry mouth Last Admin: 10/29/24 08:32 Dose: 1 spray Saliva Substitute (Dry Mouth [place] 60 Ml [place]) 1 spray MUCOUS MEM Q2H PRN PRN Reason: Dry Mouth Trazodone HCl (Trazodone Hcl 50 Mg Tablet) 50 mg PO BEDTIME MRX1 PRN PRN Reason: Insomnia Allergies Allergies Allergy/AdvReac Type Severity Reaction Status Date / Time No Known Allergies Allergy Verified 07/17/23 15:13 Assessment & Plan Assessment & Plan (1) OCD (obsessive compulsive disorder): Status: Acute Code(s): F42.9 - Obsessive-compulsive disorder, unspecified (2) PTSD (post-traumatic stress disorder): Status: Acute Code(s): F43.10 - Post-traumatic stress disorder, unspecified (3) MDD (major depressive disorder), recurrent episode, moderate: Status: Acute Code(s): F33.1 - Major depressive disorder, recurrent, moderate Assessment and Plan: 10/29: Continue to encourage treatment. Literature given by Dr. Mcleod Will increase Klonopin today. 10/30: Increase Anafranil to 50 mg HS 10/31: Urology consult CBC, CMP 11/01. Plan Literature given discussed with patient medication options intensive outpatient counseling options including might look at possibility of [place] [facility] treatment program if possible. I did discuss with the patient given the severity of her symptoms inability to function combined anxiety and depressive symptoms intrusive OCD that ECT although not a primary treatment for OCD given the patient's to history of worsening functioning thought she would be better off inability to function outpatient setting ECT might help her regroup more acutely decrease some of more intense symptoms including accidental self-harm by her ritualistic physical behavior . Patient at this point perhaps does not seem to tolerate SSRIs have not been effective agree with use of Anafranil antipsychotic augmentation can also sometimes be helpful continue benzodiazepine patient to consider ECT agree with medication treatment trial 1st. Would benefit from experienced outpatient clinician when discharged dealing with OCD treatment no clear medical contraindications noted Reason for continued inpatient stay Substantial Risk for: rapid decompensation and med/psych decompensation Time Spent With Patient Time: Total time managing care of this patient today ____ minutes.
[2024-10-31] MEDS: Dry Mouth Spray 60 ML SPRAY 1 SPRAY MUCOUS MEM ×2 (15:11→21:24)
[2024-10-31 20:00] VITALS: BP 138/79; PULSE 78; TEMP 36.4; O2SAT 97
[2024-10-31] MEDS: Carbamide Peroxide 6.5% Otic 15 ML DRPBTL 5 DROP EAR-BOTH (20:34)
[2024-11-01 08:00] VITALS: BP 100/50; PULSE 56; RESP 16; TEMP 36.4; O2SAT 96
[2024-11-01] MEDS: Nicotine 21 MG PATCH.TD24 TRANSDERMA (09:57)
--- NOTE | 2024-11-01 12:44 | P.PNPSI_ITS ---
Subjective Subjective Date of Service: 11/01/24 Reason For Visit: Unspecified Depressive disorder, OCD Interim History: Laying in bed. declined to meet with T/W in unit group room. Pt reports feeling anxious and depressed ; pt stated, I don't feel like getting up today. I don't know why. I feel more depressed and my anxiety is high. I have dry mouth but I don't want to use anything for it . She reports sleeping well last night. denies SI/HI/VH/AH. Pt encouraged to leave room and attend groups. Continue current tx plan. Medication Compliance: Yes Side effects from medications: No Attending Groups: No Mental Status Exam Mental Status Exam Patient Appearance: Disheveled Patient Orientation: Person, Place, Time and Situation Level of Consciousness: Awake and Alert Patient Behavior: Appropriate and Guarded Mood Description: Depressed and Anxious Affect Description: Depressed Ability to Follow Directions: Good Speech Pattern: Clear Memory Description: Intact Hallucinations: None Delusions: Not Present Thought Process: Intact Thought Content: positive for Intact Diagnostics Vital Signs (24Hr): Vital Signs - 24 hr 10/31/24 20:00 11/01/24 08:00 Temperature 97.6 F 97.5 F Pulse Rate 78 56 Respiratory Rate 16 Blood Pressure 138/79 100/50 L Pulse Oximetry 97 96 Oxygen Delivery Method Room Air BMI result Body Mass Index 18.9 Medications Medications Current Medications Acetaminophen (Acetaminophen 325 Mg Tablet) 650 mg PO Q6H PRN PRN Reason: Headache/Pain, Scale 1-10 Al Hydroxide/Mg Hydroxide (Magnesium Hydrox/Alum Hydrox 30 Ml Oral.Susp) 30 ml PO Q6H PRN PRN Reason: Heartburn/Nausea Carbamide Peroxide (Carbamide Peroxide 6.5% Otic 15 Ml Drpbtl) 5 drop EAR-BOTH BID KIMI Stop: 11/04/24 15:13 Last Admin: 10/31/24 20:34 Dose: 5 drop Clomipramine HCl (Clomipramine Hcl 25 Mg Capsule) 50 mg PO BEDTIME KIMI Last Admin: 10/31/24 20:15 Dose: 50 mg Clonazepam (Clonazepam 0.5 Mg Tablet) 1.5 mg PO TID PRN PRN Reason: Anxiety Last Admin: 11/01/24 09:53 Dose: 1.5 mg Hydroxyzine HCl (Hydroxyzine Hcl 25 Mg Tablet) 25 mg PO Q6H PRN PRN Reason: mild anxiety Last Admin: 10/19/24 11:01 Dose: 25 mg Loperamide HCl (Loperamide Hcl 2 Mg Capsule) 4 mg PO Q6H PRN PRN Reason: loose stool Last Admin: 10/25/24 15:42 Dose: 4 mg Magnesium Hydroxide (Milk Of Magnesia 30 Ml Oral.Susp) 30 ml PO DAILY PRN PRN Reason: Constipation Nicotine (Nicotine 21 Mg Patch.Td24) 21 mg TRANSDERMA DAILY PRN PRN Reason: smoking cessation Last Admin: 11/01/24 09:57 Dose: 21 mg Nicotine Polacrilex (Nicotine Polacrilex 2 Mg Gum) 4 mg BUCCAL Q2H PRN PRN Reason: Nicotine Cravings Olanzapine (Olanzapine 5 Mg Tablet) 5 mg PO Q4H PRN PRN Reason: agitation,dissociation Last Admin: 10/22/24 12:22 Dose: 5 mg Olanzapine (Olanzapine 2.5 Mg Tablet) 2.5 mg PO BID KIMI Last Admin: 11/01/24 09:53 Dose: 2.5 mg Saliva Substitute (Dry Mouth [place] 60 Ml [place]) 1 spray MUCOUS MEM Q2H PRN PRN Reason: dry mouth Last Admin: 10/31/24 21:24 Dose: 1 spray Saliva Substitute (Dry Mouth [place] 60 Ml [place]) 1 spray MUCOUS MEM Q2H PRN PRN Reason: Dry Mouth Trazodone HCl (Trazodone Hcl 50 Mg Tablet) 50 mg PO BEDTIME MRX1 PRN PRN Reason: Insomnia Allergies Allergies Allergy/AdvReac Type Severity Reaction Status Date / Time No Known Allergies Allergy Verified 07/17/23 15:13 Assessment & Plan Assessment & Plan (1) OCD (obsessive compulsive disorder): Status: Acute Code(s): F42.9 - Obsessive-compulsive disorder, unspecified (2) PTSD (post-traumatic stress disorder): Status: Acute Code(s): F43.10 - Post-traumatic stress disorder, unspecified (3) MDD (major depressive disorder), recurrent episode, moderate: Status: Acute Code(s): F33.1 - Major depressive disorder, recurrent, moderate Assessment and Plan: 10/29: Continue to encourage treatment. Literature given by Dr. Mcleod Will increase Klonopin today. 10/30: Increase Anafranil to 50 mg HS 10/31: Urology consult CBC, CMP 11/01. 11/01: Laying in bed. declined to meet with T/W in unit group room. Pt reports feeling anxious and depressed ; pt stated, I don't feel like getting up today. I don't know why. I feel more depressed and my anxiety is high. I have dry mouth but I don't want to use anything for it . She reports sleeping well last night. denies SI/HI/VH/AH. Pt encouraged to leave room and attend groups. Continue current tx plan. Plan Literature given discussed with patient medication options intensive outpatient counseling options including might look at possibility of [place] [facility] treatment program if possible. I did discuss with the patient given the severity of her symptoms inability to function combined anxiety and depressive symptoms intrusive OCD that ECT although not a primary treatment for OCD given the patient's to history of worsening functioning thought she would be better off inability to function outpatient setting ECT might help her regroup more acutely decrease some of more intense symptoms including accidental self-harm by her ritualistic physical behavior . Patient at this point perhaps does not seem to tolerate SSRIs have not been effective agree with use of Anafranil antipsychotic augmentation can also sometimes be helpful continue benzodiazepine patient to consider ECT agree with medication treatment trial 1st. Would benefit from experienced outpatient clinician when discharged dealing with OCD treatment no clear medical contraindications noted Patient educated on: diagnosis, medication risk/benefits and therapeutic strategies Reason for continued inpatient stay Substantial Risk for: med/psych decompensation Time Spent With Patient Time: Total time managing care of this patient today _20___ minutes.
[2024-11-01 20:00] VITALS: BP 128/70; PULSE 85; TEMP 36.4; O2SAT 98
[2024-11-01] MEDS: Dry Mouth Spray 60 ML SPRAY 1 SPRAY MUCOUS MEM (21:29)
[2024-11-02 07:51] VITALS: BP 96/55; PULSE 99; RESP 16; TEMP 36.1; O2SAT 99
[2024-11-02] MEDS: Nicotine 21 MG PATCH.TD24 TRANSDERMA (09:22)
[2024-11-02] MEDS: Dry Mouth Spray 60 ML SPRAY 1 SPRAY MUCOUS MEM ×2 (09:59→23:47)
--- NOTE | 2024-11-02 10:52 | HO.PSYCHPN ---
Subjective Subjective Date of Service: 11/02/24 Reason For Visit: Unspecified Depressive disorder, OCD Subjective Notes: Conditional Voluntary Healthcare Proxy: No Guardianship: No Medical Problems Affecting Mental Status: No Interim History: DC planned for 11/05 as pt is not willing to commit to a consistent plan of care. Anafranil refused last evening, Klonopin refused this a.m. pt then was markedly anxious and decided to take Klonopin at 1311. Olanzapine refused 11/01. Klonopin decreased to 1 mg tid prn per pt request. Distraught when we met [id number] benefits of taking medicine regularly. Discussed functions of her symptoms which she finds uncomfortable, however symptoms keep her in a known place. Urinary incontinence she reports she will address after discharge. She continues to refuse to shower after an incidence of incontinence Medication Compliance: Intermittent Side effects from medications: Yes (Dry mouth- refuses interventions) Attending Groups: Intermittent Review of Systems Overactive Bladder Review of Systems Review of Systems Overactive bladder Mental Status Exam Mental Status Exam Patient Appearance: Disheveled Patient Orientation: Person, Place, Time and Situation Level of Consciousness: Awake and Alert Patient Behavior: Appropriate and Guarded Mood Description: Depressed and Anxious Affect Description: Depressed Ability to Follow Directions: Good Speech Pattern: Clear Memory Description: Intact Hallucinations: None Delusions: Not Present Thought Process: Intact Thought Content: positive for Intact Diagnostics Vital Signs (24Hr): Vital Signs - 24 hr 11/01/24 20:00 11/02/24 07:51 Temperature 97.6 F 97.0 F Pulse Rate 85 99 Respiratory Rate 16 Blood Pressure 128/70 96/55 L Pulse Oximetry 98 99 Oxygen Delivery Method Room Air BMI result Body Mass Index 18.9 Medications Medications Current Medications Acetaminophen (Acetaminophen 325 Mg Tablet) 650 mg PO Q6H PRN PRN Reason: Headache/Pain, Scale 1-10 Al Hydroxide/Mg Hydroxide (Magnesium Hydrox/Alum Hydrox 30 Ml Oral.Susp) 30 ml PO Q6H PRN PRN Reason: Heartburn/Nausea Carbamide Peroxide (Carbamide Peroxide 6.5% Otic 15 Ml Drpbtl) 5 drop EAR-BOTH BID KIMI Stop: 11/04/24 15:13 Last Admin: 11/01/24 21:38 Dose: Not Given Clomipramine HCl (Clomipramine Hcl 25 Mg Capsule) 50 mg PO BEDTIME [facility] Last Admin: 11/01/24 21:39 Dose: Not Given Clonazepam (Clonazepam 1 Mg Tablet) 1 mg PO TID PRN PRN Reason: Anxiety Hydroxyzine HCl (Hydroxyzine Hcl 25 Mg Tablet) 25 mg PO Q6H PRN PRN Reason: mild anxiety Last Admin: 10/19/24 11:01 Dose: 25 mg Loperamide HCl (Loperamide Hcl 2 Mg Capsule) 4 mg PO Q6H PRN PRN Reason: loose stool Last Admin: 10/25/24 15:42 Dose: 4 mg Magnesium Hydroxide (Milk Of Magnesia 30 Ml Oral.Susp) 30 ml PO DAILY PRN PRN Reason: Constipation Nicotine (Nicotine 21 Mg Patch.Td24) 21 mg TRANSDERMA DAILY PRN PRN Reason: smoking cessation Last Admin: 11/02/24 09:22 Dose: 21 mg Nicotine Polacrilex (Nicotine Polacrilex 2 Mg Gum) 4 mg BUCCAL Q2H PRN PRN Reason: Nicotine Cravings Olanzapine (Olanzapine 5 Mg Tablet) 5 mg PO Q4H PRN PRN Reason: agitation,dissociation Last Admin: 10/22/24 12:22 Dose: 5 mg Olanzapine (Olanzapine 2.5 Mg Tablet) 2.5 mg PO BID [facility] Last Admin: 11/02/24 09:21 Dose: 2.5 mg Saliva Substitute (Dry Mouth [place] 60 Ml [place]) 1 spray MUCOUS MEM Q2H PRN PRN Reason: dry mouth Last Admin: 11/02/24 09:59 Dose: 1 spray Saliva Substitute (Dry Mouth [place] 60 Ml [place]) 1 spray MUCOUS MEM Q2H PRN PRN Reason: Dry Mouth Trazodone HCl (Trazodone Hcl 50 Mg Tablet) 50 mg PO BEDTIME MRX1 PRN PRN Reason: Insomnia Allergies Allergies Allergy/AdvReac Type Severity Reaction Status Date / Time No Known Allergies Allergy Verified 07/17/23 15:13 Assessment & Plan Assessment & Plan (1) OCD (obsessive compulsive disorder): Status: Acute Code(s): F42.9 - Obsessive-compulsive disorder, unspecified (2) PTSD (post-traumatic stress disorder): Status: Acute Code(s): F43.10 - Post-traumatic stress disorder, unspecified (3) MDD (major depressive disorder), recurrent episode, moderate: Status: Acute Code(s): F33.1 - Major depressive disorder, recurrent, moderate Assessment and Plan: 10/29: Continue to encourage treatment. Literature given by Dr. Mcelod Will increase Klonopin today. 10/30: Increase Anafranil to 50 mg HS 10/31: Urology consult CBC, CMP 11/01. 11/01: Laying in bed. declined to meet with T/W in unit group room. Pt reports feeling anxious and depressed ; pt stated, I don't feel like getting up today. I don't know why. I feel more depressed and my anxiety is high. I have dry mouth but I don't want to use anything for it . She reports sleeping well last night. denies SI/HI/VH/AH. Pt encouraged to leave room and attend groups. Continue current tx plan. 11/02: Denies SI, HI, AH,VH. Refusing meds, diagnostics. DC planned for 11/05. Plan Literature given discussed with patient medication options intensive outpatient counseling options including might look at possibility of [place] [facility] treatment program if possible. I did discuss with the patient given the severity of her symptoms inability to function combined anxiety and depressive symptoms intrusive OCD that ECT although not a primary treatment for OCD given the patient's to history of worsening functioning thought she would be better off inability to function outpatient setting ECT might help her regroup more acutely decrease some of more intense symptoms including accidental self-harm by her ritualistic physical behavior . Patient at this point perhaps does not seem to tolerate SSRIs have not been effective agree with use of Anafranil antipsychotic augmentation can also sometimes be helpful continue benzodiazepine patient to consider ECT agree with medication treatment trial 1st. Would benefit from experienced outpatient clinician when discharged dealing with OCD treatment no clear medical contraindications noted Reason for continued inpatient stay Substantial Risk for: rapid decompensation and med/psych decompensation Time Spent With Patient Time: Total time managing care of this patient today ____ minutes.
[2024-11-02 19:37] VITALS: BP 145/67; PULSE 67; TEMP 36.9
[2024-11-03 08:00] VITALS: BP 115/59; PULSE 51; TEMP 36.4; O2SAT 98
[2024-11-03] MEDS: Nicotine 21 MG PATCH.TD24 TRANSDERMA (09:03)
[2024-11-03] MEDS: Dry Mouth Spray 60 ML SPRAY 1 SPRAY MUCOUS MEM ×3 (09:04→20:55)
--- NOTE | 2024-11-03 17:18 | P.PNPSI_ITS ---
Subjective Subjective Date of Service: 11/03/24 Reason For Visit: Unspecified Depressive disorder, OCD Interim History: Patient reports she is just tired and lazy today. Feels good about the tapering of her medications. Says her depression and anxiety have been stable. Improved overall. Denies SI. Denies HI. Denies AVH. Review of Systems Review of Systems Overactive bladder Constitutional: Denies chills and Denies fever(s) Cardiovascular: Denies chest pain Respiratory: Denies cough Gastrointestinal: Denies vomiting Psychiatric: Reports depression and Reports panic attacks Mental Status Exam Mental Status Exam Narrative: Pt is alert and oriented; behavior is cooperative, anxious, lying in bed; patient is not in distress; dressed in gown, unkempt; mood is described as a nxious and affect congruent; eye contact appropriate; Speech is normal rate, volume and prosody and not pressured; psychomotor retardation present; thought process is organized and goal directed; Thought content is perseverative on symptoms, side-effects; denies any SI/HI. Denies AVH and there is no evidence of perceptual disturbance. Patients insight and judgment impaired. Patient Appearance: Disheveled Patient Orientation: Person, Place, Time and Situation Level of Consciousness: Awake and Alert Patient Behavior: Appropriate and Guarded Mood Description: Depressed and Anxious Affect Description: Depressed Patient Cognition Impaired: No Ability to Follow Directions: Good Speech Pattern: Clear Memory Description: Intact Diagnostics Vital Signs (24Hr): Vital Signs - 24 hr 11/02/24 19:37 11/03/24 08:00 Temperature 98.5 F 97.5 F Pulse Rate 67 51 Blood Pressure 145/67 H 115/59 L Pulse Oximetry 98 Oxygen Delivery Method Room Air BMI result Body Mass Index 18.9 Medications Medications Current Medications Acetaminophen (Acetaminophen 325 Mg Tablet) 650 mg PO Q6H PRN PRN Reason: Headache/Pain, Scale 1-10 Al Hydroxide/Mg Hydroxide (Magnesium Hydrox/Alum Hydrox 30 Ml Oral.Susp) 30 ml PO Q6H PRN PRN Reason: Heartburn/Nausea Carbamide Peroxide (Carbamide Peroxide 6.5% Otic 15 Ml Drpbtl) 5 drop EAR-BOTH BID [facility] Stop: 11/04/24 15:13 Last Admin: 11/03/24 09:07 Dose: Not Given Clomipramine HCl (Clomipramine Hcl 25 Mg Capsule) 50 mg PO BEDTIME [facility] Last Admin: 11/02/24 20:07 Dose: 50 mg Clonazepam (Clonazepam 1 Mg Tablet) 1 mg PO TID PRN PRN Reason: Anxiety Last Admin: 11/03/24 16:26 Dose: 1 mg Hydroxyzine HCl (Hydroxyzine Hcl 25 Mg Tablet) 25 mg PO Q6H PRN PRN Reason: mild anxiety Last Admin: 10/19/24 11:01 Dose: 25 mg Loperamide HCl (Loperamide Hcl 2 Mg Capsule) 4 mg PO Q6H PRN PRN Reason: loose stool Last Admin: 10/25/24 15:42 Dose: 4 mg Magnesium Hydroxide (Milk Of Magnesia 30 Ml Oral.Susp) 30 ml PO DAILY PRN PRN Reason: Constipation Nicotine (Nicotine 21 Mg Patch.Td24) 21 mg TRANSDERMA DAILY PRN PRN Reason: smoking cessation Last Admin: 11/03/24 09:03 Dose: 21 mg Nicotine Polacrilex (Nicotine Polacrilex 2 Mg Gum) 4 mg BUCCAL Q2H PRN PRN Reason: Nicotine Cravings Olanzapine (Olanzapine 5 Mg Tablet) 5 mg PO Q4H PRN PRN Reason: agitation,dissociation Last Admin: 10/22/24 12:22 Dose: 5 mg Olanzapine (Olanzapine 2.5 Mg Tablet) 2.5 mg PO BID [facility] Last Admin: 11/03/24 08:55 Dose: 2.5 mg Saliva Substitute (Dry Mouth [place] 60 Ml [place]) 1 spray MUCOUS MEM Q2H PRN PRN Reason: dry mouth Last Admin: 11/03/24 16:33 Dose: 1 spray Saliva Substitute (Dry Mouth [place] 60 Ml [place]) 1 spray MUCOUS MEM Q2H PRN PRN Reason: Dry Mouth Trazodone HCl (Trazodone Hcl 50 Mg Tablet) 50 mg PO BEDTIME MRX1 PRN PRN Reason: Insomnia Allergies Allergies Allergy/AdvReac Type Severity Reaction Status Date / Time No Known Allergies Allergy Verified 07/17/23 15:13 Assessment & Plan Assessment & Plan (1) OCD (obsessive compulsive disorder): Status: Acute Code(s): F42.9 - Obsessive-compulsive disorder, unspecified (2) PTSD (post-traumatic stress disorder): Status: Acute Code(s): F43.10 - Post-traumatic stress disorder, unspecified (3) MDD (major depressive disorder), recurrent episode, moderate: Status: Acute Code(s): F33.1 - Major depressive disorder, recurrent, moderate Assessment and Plan: 10/29: Continue to encourage treatment. Literature given by Dr. Mcleod Will increase Klonopin today. 10/30: Increase Anafranil to 50 mg HS 10/31: Urology consult CBC, CMP 11/01. 11/01: Laying in bed. declined to meet with T/W in unit group room. Pt reports feeling anxious and depressed ; pt stated, I don't feel like getting up today. I don't know why. I feel more depressed and my anxiety is high. I have dry mouth but I don't want to use anything for it . She reports sleeping well last night. denies SI/HI/VH/AH. Pt encouraged to leave room and attend groups. Continue current tx plan. 11/02: Denies SI, HI, AH,VH. Refusing meds, diagnostics. DC planned for 11/05. 11/03: Continue current management and treatment plan. Plan Literature given discussed with patient medication options intensive outpatient counseling options including might look at possibility of [place] OCD treatment program if possible. I did discuss with the patient given the severity of her symptoms inability to function combined anxiety and depressive symptoms intrusive OCD that ECT although not a primary treatment for OCD given the patient's to history of worsening functioning thought she would be better off inability to function outpatient setting ECT might help her regroup more acutely decrease some of more intense symptoms including accidental self-harm by her ritualistic physical behavior . Patient at this point perhaps does not seem to tolerate SSRIs have not been effective agree with use of Anafranil antipsychotic augmentation can also sometimes be helpful continue benzodiazepine patient to consider ECT agree with medication treatment trial 1st. Would benefit from experienced outpatient clinician when discharged dealing with OCD treatment no clear medical contraindications noted Reason for continued inpatient stay Substantial Risk for: inability to function and rapid decompensation Time Spent With Patient Time: Total time managing care of this patient today ____ minutes.
[2024-11-03 19:31] VITALS: BP 122/69; PULSE 73; TEMP 36.9; O2SAT 100
[2024-11-04 08:00] VITALS: BP 114/56; PULSE 50; TEMP 36.4; O2SAT 98
[2024-11-04] MEDS: Nicotine 21 MG PATCH.TD24 TRANSDERMA (08:47)
--- NOTE | 2024-11-04 09:33 | HO.PSYCHPN ---
Subjective Subjective Date of Service: 11/04/24 Reason For Visit: Unspecified Depressive disorder, OCD Interim History: Patient says I just don't feel like getting up today . Feels lazy she says. She has not showered. She is seen in her bed making a repetitive movement of licking her knuckle, then rubbing her cheek then rubbing the side of eyes. She is doing this repeatedly. Says it's her OCD and says she has crusties in her eyes. Feels good about the tapering of her medications. Says her depression and anxiety have been stable. Improved overall. Denies SI. Denies HI. Denies AVH. Review of Systems Review of Systems Overactive bladder Constitutional: Denies chills and Denies fever(s) Cardiovascular: Denies chest pain Respiratory: Denies cough Gastrointestinal: Denies vomiting Psychiatric: Reports depression and Reports panic attacks Mental Status Exam Mental Status Exam Narrative: Pt is alert and oriented; behavior is cooperative, anxious, lying in bed; patient is not in distress; dressed in gown, unkempt; mood is described as anxious and affect congruent; eye contact appropriate; Speech is normal rate, volume and prosody and not pressured; psychomotor retardation present; thought process is organized and goal directed; Thought content is perseverative on symptoms, side-effects; denies any SI/HI. Denies AVH and there is no evidence of perceptual disturbance. Patients insight and judgment impaired. Patient Appearance: Disheveled Patient Orientation: Person, Place, Time and Situation Level of Consciousness: Awake and Alert Patient Behavior: Appropriate and Guarded Mood Description: Depressed and Anxious Affect Description: Depressed Patient Cognition Impaired: No Ability to Follow Directions: Good Speech Pattern: Clear Memory Description: Intact Diagnostics Vital Signs (24Hr): Vital Signs - 24 hr 11/03/24 19:31 11/04/24 08:00 Temperature 98.4 F 97.5 F Pulse Rate 73 50 Blood Pressure 122/69 114/56 L Pulse Oximetry 100 98 Oxygen Delivery Method Room Air Room Air BMI result Body Mass Index 18.9 Medications Medications Current Medications Acetaminophen (Acetaminophen 325 Mg Tablet) 650 mg PO Q6H PRN PRN Reason: Headache/Pain, Scale 1-10 Al Hydroxide/Mg Hydroxide (Magnesium Hydrox/Alum Hydrox 30 Ml Oral.Susp) 30 ml PO Q6H PRN PRN Reason: Heartburn/Nausea Carbamide Peroxide (Carbamide Peroxide 6.5% Otic 15 Ml Drpbtl) 5 drop EAR-BOTH BID [facility] Stop: 11/04/24 15:13 Last Admin: 11/04/24 08:50 Dose: Not Given Clomipramine HCl (Clomipramine Hcl 25 Mg Capsule) 50 mg PO BEDTIME [facility] Last Admin: 11/03/24 20:56 Dose: 50 mg Clonazepam (Clonazepam 1 Mg Tablet) 1 mg PO TID PRN PRN Reason: Anxiety Last Admin: 11/03/24 16:26 Dose: 1 mg Hydroxyzine HCl (Hydroxyzine Hcl 25 Mg Tablet) 25 mg PO Q6H PRN PRN Reason: mild anxiety Last Admin: 10/19/24 11:01 Dose: 25 mg Loperamide HCl (Loperamide Hcl 2 Mg Capsule) 4 mg PO Q6H PRN PRN Reason: loose stool Last Admin: 10/25/24 15:42 Dose: 4 mg Magnesium Hydroxide (Milk Of Magnesia 30 Ml Oral.Susp) 30 ml PO DAILY PRN PRN Reason: Constipation Nicotine (Nicotine 21 Mg Patch.Td24) 21 mg TRANSDERMA DAILY PRN PRN Reason: smoking cessation Last Admin: 11/04/24 08:47 Dose: 21 mg Nicotine Polacrilex (Nicotine Polacrilex 2 Mg Gum) 4 mg BUCCAL Q2H PRN PRN Reason: Nicotine Cravings Olanzapine (Olanzapine 5 Mg Tablet) 5 mg PO Q4H PRN PRN Reason: agitation,dissociation Last Admin: 10/22/24 12:22 Dose: 5 mg Olanzapine (Olanzapine 2.5 Mg Tablet) 2.5 mg PO BID [facility] Last Admin: 11/04/24 08:45 Dose: 2.5 mg Saliva Substitute (Dry Mouth [place] 60 Ml [place]) 1 spray MUCOUS MEM Q2H PRN PRN Reason: dry mouth Last Admin: 11/03/24 20:55 Dose: 1 spray Saliva Substitute (Dry Mouth [place] 60 Ml [place]) 1 spray MUCOUS MEM Q2H PRN PRN Reason: Dry Mouth Trazodone HCl (Trazodone Hcl 50 Mg Tablet) 50 mg PO BEDTIME MRX1 PRN PRN Reason: Insomnia Allergies Allergies Allergy/AdvReac Type Severity Reaction Status Date / Time No Known Allergies Allergy Verified 07/17/23 15:13 Assessment & Plan Assessment & Plan (1) OCD (obsessive compulsive disorder): Status: Acute Code(s): F42.9 - Obsessive-compulsive disorder, unspecified (2) PTSD (post-traumatic stress disorder): Status: Acute Code(s): F43.10 - Post-traumatic stress disorder, unspecified (3) MDD (major depressive disorder), recurrent episode, moderate: Status: Acute Code(s): F33.1 - Major depressive disorder, recurrent, moderate Assessment and Plan: 10/29: Continue to encourage treatment. Literature given by Dr. Mcleod Will increase Klonopin today. 10/30: Increase Anafranil to 50 mg HS 10/31: Urology consult CBC, CMP 11/01. 11/01: Laying in bed. declined to meet with T/W in unit group room. Pt reports feeling anxious and depressed ; pt stated, I don't feel like getting up today. I don't know why. I feel more depressed and my anxiety is high. I have dry mouth but I don't want to use anything for it . She reports sleeping well last night. denies SI/HI/VH/AH. Pt encouraged to leave room and attend groups. Continue current tx plan. 11/02: Denies SI, HI, AH,VH. Refusing meds, diagnostics. DC planned for 11/05. 11/03: Continue current management and treatment plan. 11/04: Encouraged to get up and shower. Continue current management and treatment plan. Plan Literature given discussed with patient medication options intensive outpatient counseling options including might look at possibility of [place] OCD treatment program if possible. I did discuss with the patient given the severity of her symptoms inability to function combined anxiety and depressive symptoms intrusive OCD that ECT although not a primary treatment for OCD given the patient's to history of worsening functioning thought she would be better off inability to function outpatient setting ECT might help her regroup more acutely decrease some of more intense symptoms including accidental self-harm by her ritualistic physical behavior . Patient at this point perhaps does not seem to tolerate SSRIs have not been effective agree with use of Anafranil antipsychotic augmentation can also sometimes be helpful continue benzodiazepine patient to consider ECT agree with medication treatment trial 1st. Would benefit from experienced outpatient clinician when discharged dealing with OCD treatment no clear medical contraindications noted Reason for continued inpatient stay Substantial Risk for: inability to function and rapid decompensation Time Spent With Patient Time: Total time managing care of this patient today ____ minutes.
[2024-11-04] MEDS: Dry Mouth Spray 60 ML SPRAY 1 SPRAY MUCOUS MEM ×3 (10:10→21:29)
[2024-11-04 20:00] VITALS: BP 131/68; PULSE 71; TEMP 36.4; O2SAT 100
[2024-11-05 08:22] VITALS: BP 131/60; PULSE 60; RESP 16; TEMP 36.4; O2SAT 100
[2024-11-05] MEDS: Dry Mouth Spray 60 ML SPRAY 1 SPRAY MUCOUS MEM ×2 (10:08→23:25)
--- NOTE | 2024-11-05 12:32 | HO.PSYCHPN ---
Subjective Subjective Date of Service: 11/05/24 Reason For Visit: Unspecified Depressive disorder, OCD Subjective Notes: Conditional Voluntary Healthcare Proxy: No Guardianship: No Medical Problems Affecting Mental Status: No Interim History: I knew I needed to stay, you can increase the medicine. I am still doing rituals all the time, but the medicine I feel is starting to help. Pt engaged in repetitive OCD sx today. She decided not to discharge and continue working with Anafranil titration. Reports sx of possible conjunctivitis-will ask for hospitalist consult. She continues with incontinence, not showering. Urology has not consulted at this time. Medication Compliance: Yes Side effects from medications: Yes (dry mouth) Attending Groups: No Review of Systems urinary incontinence, consult pending Medical Review of Systems: unchanged Review of Systems Review of Systems urinary incontinence Mental Status Exam Mental Status Exam Patient Appearance: Disheveled Patient Orientation: Person, Place, Time and Situation Level of Consciousness: Restless and Alert Patient Behavior: Talkative, Cooperative, Restless, Anxious, Fatigued and Good Eye Contact Behavior Comments: Repetitive, ritualistic behaviors Mood Description: Withdrawn, Depressed, Anxious and Apprehensive Affect Description: Flat Patient Cognition Impaired: No Ability to Follow Directions: Good Speech Pattern: Spontaneous Speech Memory Description: Episodic Impaired Hallucinations: None Perceptual Disturbances: Derealization Thought Process: Distracted and Rumination Thought Content: positive for Obsessional Thoughts, positive for Circumstantial, positive for Perseveration, positive for Preoccupation and positive for Suicidal Ideation (passive) Depressive Symptoms: Increased Anxiety, Diff. Making Decisions, Increased Irritability and Difficulty Concentrating Abnormal Motor Activity Signs and Symptoms: Hyperactivity and Restlessness Judgement: Fair Diagnostics Vital Signs (24Hr): Vital Signs - 24 hr 11/04/24 20:00 11/05/24 08:22 Temperature 97.6 F 97.6 F Pulse Rate 71 60 Respiratory Rate 16 Blood Pressure 131/68 131/60 Pulse Oximetry 100 100 Oxygen Delivery Method Room Air Room Air BMI result Body Mass Index 18.9 Medications Medications Current Medications Acetaminophen (Acetaminophen 325 Mg Tablet) 650 mg PO Q6H PRN PRN Reason: Headache/Pain, Scale 1-10 Al Hydroxide/Mg Hydroxide (Magnesium Hydrox/Alum Hydrox 30 Ml Oral.Susp) 30 ml PO Q6H PRN PRN Reason: Heartburn/Nausea Clomipramine HCl (Clomipramine Hcl 25 Mg Capsule) 50 mg PO BEDTIME [facility] Last Admin: 11/04/24 21:22 Dose: 50 mg Clonazepam (Clonazepam 1 Mg Tablet) 1 mg PO TID PRN PRN Reason: Anxiety Last Admin: 11/05/24 10:08 Dose: 1 mg Hydroxyzine HCl (Hydroxyzine Hcl 25 Mg Tablet) 25 mg PO Q6H PRN PRN Reason: mild anxiety Last Admin: 10/19/24 11:01 Dose: 25 mg Loperamide HCl (Loperamide Hcl 2 Mg Capsule) 4 mg PO Q6H PRN PRN Reason: loose stool Last Admin: 10/25/24 15:42 Dose: 4 mg Magnesium Hydroxide (Milk Of Magnesia 30 Ml Oral.Susp) 30 ml PO DAILY PRN PRN Reason: Constipation Nicotine (Nicotine 21 Mg Patch.Td24) 21 mg TRANSDERMA DAILY PRN PRN Reason: smoking cessation Last Admin: 11/04/24 08:47 Dose: 21 mg Nicotine Polacrilex (Nicotine Polacrilex 2 Mg Gum) 4 mg BUCCAL Q2H PRN PRN Reason: Nicotine Cravings Olanzapine (Olanzapine 5 Mg Tablet) 5 mg PO Q4H PRN PRN Reason: agitation,dissociation Last Admin: 10/22/24 12:22 Dose: 5 mg Olanzapine (Olanzapine 2.5 Mg Tablet) 2.5 mg PO BID [facility] Last Admin: 11/05/24 10:08 Dose: 2.5 mg Saliva Substitute (Dry Mouth [place] 60 Ml [place]) 1 spray MUCOUS MEM Q2H PRN PRN Reason: dry mouth Last Admin: 11/05/24 10:08 Dose: 1 spray Saliva Substitute (Dry Mouth [place] 60 Ml [place]) 1 spray MUCOUS MEM Q2H PRN PRN Reason: Dry Mouth Trazodone HCl (Trazodone Hcl 50 Mg Tablet) 50 mg PO BEDTIME MRX1 PRN PRN Reason: Insomnia Allergies Allergies Allergy/AdvReac Type Severity Reaction Status Date / Time No Known Allergies Allergy Verified 07/17/23 15:13 Assessment & Plan Assessment & Plan (1) OCD (obsessive compulsive disorder): Status: Acute Code(s): F42.9 - Obsessive-compulsive disorder, unspecified (2) PTSD (post-traumatic stress disorder): Status: Acute Code(s): F43.10 - Post-traumatic stress disorder, unspecified (3) MDD (major depressive disorder), recurrent episode, moderate: Status: Acute Code(s): F33.1 - Major depressive disorder, recurrent, moderate Assessment and Plan: 10/29: Continue to encourage treatment. Literature given by Dr. Mcleod Will increase Klonopin today. 10/30: Increase Anafranil to 50 mg HS 10/31: Urology consult CBC, CMP 11/01. 11/01: Laying in bed. declined to meet with T/W in unit group room. Pt reports feeling anxious and depressed ; pt stated, I don't feel like getting up today. I don't know why. I feel more depressed and my anxiety is high. I have dry mouth but I don't want to use anything for it . She reports sleeping well last night. denies SI/HI/VH/AH. Pt encouraged to leave room and attend groups. Continue current tx plan. 11/02: Denies SI, HI, AH,VH. Refusing meds, diagnostics. DC planned for 11/05. 11/03: Continue current management and treatment plan. 11/04: Encouraged to get up and shower. Continue current management and treatment plan. 11/05: Pt has decided to remain in pt and continue treatment and titrate medications. Increase Anafranil to 75 mg HS Plan Literature given discussed with patient medication options intensive outpatient counseling options including might look at possibility of [place] OCD treatment program if possible. I did discuss with the patient given the severity of her symptoms inability to function combined anxiety and depressive symptoms intrusive OCD that ECT although not a primary treatment for OCD given the patient's to history of worsening functioning thought she would be better off inability to function outpatient setting ECT might help her regroup more acutely decrease some of more intense symptoms including accidental self-harm by her ritualistic physical behavior . Patient at this point perhaps does not seem to tolerate SSRIs have not been effective agree with use of Anafranil antipsychotic augmentation can also sometimes be helpful continue benzodiazepine patient to consider ECT agree with medication treatment trial 1st. Would benefit from experienced outpatient clinician when discharged dealing with OCD treatment no clear medical contraindications noted Informed Consent: understands Reason for continued inpatient stay Substantial Risk for: harm to self, inability to function and rapid decompensation Time Spent With Patient Time: Total time managing care of this patient today ____ minutes.
[2024-11-05] MEDS: Nicotine 21 MG PATCH.TD24 TRANSDERMA (12:35)
[2024-11-05 19:41] VITALS: BP 127/65; PULSE 76; TEMP 36.5; O2SAT 100
--- NOTE | 2024-11-05 22:56 | HO.PM.IMCN ---
History of Present Illness Data of Consult Service Date: 11/05/24 Requesting physician: Rashmi Polo Primary Care Provider: Yadiel Quick MD [facility] Reason for consult: ?conjunctivitis 51-year-old female with a past medical history of anxiety, depression, PTSD, OCD, tobacco use and recent gallbladder surgery, hosptialist consult placed for ?conjuncitivitis. the pt reports pus drainage from her eyes for months. light yellow or clear. she wipes her eyes often with q-tips, a wash cloth and her knuckles. no sensitivty to light. no significant crusting on the lids. no history of seasonal allergies. Review of Systems Review of Systems: Yes all other systems are reviewed and are negative [facility] Medical History Panic disorder PTSD (post-traumatic stress disorder) OCD (obsessive compulsive disorder) Family History Brother Bipolar disorder, unspecified Psychosis Social History Household Members: None Housing: Apartment Do you presently have visiting nurse or other home services: No Alcohol intake: never Patient Tobacco Use Status: Current everyday Tobacco user Tobacco use type: Cigarette Cigarette Packs Per Day: 1.5 Cigarettes Per Day: 30.0 Years Smoked: 35 Smoked in Last 30 Days: Yes e-Cigarette/Vaping Use: Never Used Patient Interested in Nicotine Replacement: No Patient Given Instructions on How to Stop Smoking: No Second Hand Smoke Exposure: Yes Currently Displaying Signs/Symptoms of Drug Intoxication Withdrawal: No Have you been hit, kicked, punched, or otherwise hurt by someone within the past year? If so, by whom?: No Do you feel safe in your current relationship?: No Current Relationship Is there a partner from a previous relationship who is making you feel unsafe now?: No Are you made to feel afraid or neglected: No Spiritual Healthcare Practices: none Anabaptist Healthcare Practices: none Cultural Healthcare Practices: none Advance Directives: No Advance Directives Information Provided: No Do you have thoughts of harming others: None Do you have a plan to hurt others: No Plan Recently lost weight without trying: Yes How much weight loss: 34pounds or more Eating poorly because of decreased appetite: Yes Nutrition screen score: 7 Nutrition Risks: Poor intake 0-25% >4 days Patient : No : No Poor oral hygiene: No service: No Current occupational status: unemployed Sexual orientation: Straight/Heterosexual Gender identity: Female Meds Allergies Allergy/AdvReac Type Severity Reaction Status Date / Time No Known Allergies Allergy Verified 07/17/23 15:13 Active Medications: Current Medications Acetaminophen (Acetaminophen 325 Mg Tablet) 650 mg PO Q6H PRN PRN Reason: Headache/Pain, Scale 1-10 Al Hydroxide/Mg Hydroxide (Magnesium Hydrox/Alum Hydrox 30 Ml Oral.Susp) 30 ml PO Q6H PRN PRN Reason: Heartburn/Nausea Clomipramine HCl (Clomipramine Hcl 25 Mg Capsule) 75 mg PO BEDTIME KIMI Last Admin: 11/05/24 21:21 Dose: 75 mg Clonazepam (Clonazepam 1 Mg Tablet) 1 mg PO TID PRN PRN Reason: Anxiety Last Admin: 11/05/24 17:16 Dose: 1 mg Hydroxyzine HCl (Hydroxyzine Hcl 25 Mg Tablet) 25 mg PO Q6H PRN PRN Reason: mild anxiety Last Admin: 10/19/24 11:01 Dose: 25 mg Loperamide HCl (Loperamide Hcl 2 Mg Capsule) 4 mg PO Q6H PRN PRN Reason: loose stool Last Admin: 10/25/24 15:42 Dose: 4 mg Magnesium Hydroxide (Milk Of Magnesia 30 Ml Oral.Susp) 30 ml PO DAILY PRN PRN Reason: Constipation Nicotine (Nicotine 21 Mg Patch.Td24) 21 mg TRANSDERMA DAILY PRN PRN Reason: smoking cessation Last Admin: 11/05/24 12:35 Dose: 21 mg Nicotine Polacrilex (Nicotine Polacrilex 2 Mg Gum) 4 mg BUCCAL Q2H PRN PRN Reason: Nicotine Cravings Olanzapine (Olanzapine 5 Mg Tablet) 5 mg PO Q4H PRN PRN Reason: agitation,dissociation Last Admin: 10/22/24 12:22 Dose: 5 mg Olanzapine (Olanzapine 2.5 Mg Tablet) 2.5 mg PO BID KIMI Last Admin: 11/05/24 21:21 Dose: 2.5 mg Saliva Substitute (Dry Mouth [place] 60 Ml [place]) 1 spray MUCOUS MEM Q2H PRN PRN Reason: dry mouth Last Admin: 11/05/24 10:08 Dose: 1 spray Saliva Substitute (Dry Mouth [place] 60 Ml [place]) 1 spray MUCOUS MEM Q2H PRN PRN Reason: Dry Mouth Trazodone HCl (Trazodone Hcl 50 Mg Tablet) 50 mg PO BEDTIME MRX1 PRN PRN Reason: Insomnia Physical Exam Vital Signs and Narrative: Vital Signs: Last Vital Signs Temp 97.7 F 11/05/24 19:41 Pulse 76 11/05/24 19:41 Resp 16 11/05/24 08:22 BP 127/65 11/05/24 19:41 Pulse Ox 100 11/05/24 19:41 O2 Del Method Room Air 11/05/24 19:41 BMI result Body Mass Index 18.9 General: AOx3, no acute distress Resp: No respiratory distress HEENT: normal sclera and conjunctiva. no purulent drainage. no photosensitivity. eyes appear normal. Psych: Appropriate affect Assessment and Plan (1) Allergic conjunctivitis: Status: Acute Plan 51-year-old female with a past medical history of anxiety, depression, PTSD, OCD, tobacco use and recent gallbladder surgery, hosptialist consult placed for ?conjuncitivitis. possible allergic conjunctivitis - no evidence of bacterial or viral conjunctivitis - pt rubs eyes often, could be allergic but sclera and conjunctiva appear normal - suggested she only wipe eyes with a clean, warm washcloth PRN - will try lubricating gtts - f/u with opthalmologist outpt Thank you for allowing me to participate in the pt's care. Signing off. Please contact the medical team if any questions or concerns.
[2024-11-06 08:00] VITALS: BP 110/53; PULSE 61; RESP 18; TEMP 36.4; O2SAT 93
[2024-11-06] MEDS: Nicotine 21 MG PATCH.TD24 TRANSDERMA (09:03)
--- NOTE | 2024-11-06 11:26 | HO.PSYCHPN ---
Subjective Subjective Date of Service: 11/06/24 Reason For Visit: Unspecified Depressive disorder, OCD Subjective Notes: Conditional Voluntary Healthcare Proxy: No Guardianship: No Medical Problems Affecting Mental Status: No Interim History: Continues with compulsions, rituals- agrees to continue Anafranil titration. Will allow Olanzapine titration. Reports sx of UTI, possibly BV. Will allow testing. C&S, BV, CTNG Reports meds cause her to sleep late into the a.m. Incontinence is also an issue. Pt has rituals she describes with changing her clothing when incontinent and is feeling tired when having to do this. Call to urology to follow up on consult request on 10/31. Medication Compliance: Yes Side effects from medications: Yes (dry mouth) Attending Groups: No Review of Systems Medical Review of Systems: unchanged Review of Systems Review of Systems incontinence OCD symptoms are severe. Mental Status Exam Mental Status Exam Patient Appearance: Disheveled Patient Orientation: Person, Place, Time and Situation Level of Consciousness: Restless and Alert Patient Behavior: Talkative, Cooperative, Restless, Anxious, Fatigued and Good Eye Contact Behavior Comments: Repetitive, ritualistic behaviors Mood Description: Withdrawn, Depressed, Anxious and Apprehensive Affect Description: Flat Patient Cognition Impaired: No Ability to Follow Directions: Good Speech Pattern: Spontaneous Speech Memory Description: Episodic Impaired Hallucinations: None Perceptual Disturbances: Derealization Thought Process: Distracted and Rumination Thought Content: positive for Obsessional Thoughts, positive for Circumstantial, positive for Perseveration, positive for Preoccupation and positive for Suicidal Ideation (passive) Depressive Symptoms: Increased Anxiety, Diff. Making Decisions, Increased Irritability and Difficulty Concentrating Abnormal Motor Activity Signs and Symptoms: Hyperactivity and Restlessness Judgement: Fair Diagnostics Vital Signs (24Hr): Vital Signs - 24 hr 11/05/24 19:41 11/06/24 08:00 Temperature 97.7 F 97.6 F Pulse Rate 76 61 Respiratory Rate 18 Blood Pressure 127/65 110/53 L Pulse Oximetry 100 93 Oxygen Delivery Method Room Air Room Air BMI result Body Mass Index 18.9 Medications Medications Current Medications Acetaminophen (Acetaminophen 325 Mg Tablet) 650 mg PO Q6H PRN PRN Reason: Headache/Pain, Scale 1-10 Al Hydroxide/Mg Hydroxide (Magnesium Hydrox/Alum Hydrox 30 Ml Oral.Susp) 30 ml PO Q6H PRN PRN Reason: Heartburn/Nausea Clomipramine HCl (Clomipramine Hcl 25 Mg Capsule) 75 mg PO BEDTIME KIMI Last Admin: 11/05/24 21:21 Dose: 75 mg Clonazepam (Clonazepam 1 Mg Tablet) 1 mg PO TID PRN PRN Reason: Anxiety Last Admin: 11/06/24 09:04 Dose: 1 mg Hydroxyzine HCl (Hydroxyzine Hcl 25 Mg Tablet) 25 mg PO Q6H PRN PRN Reason: mild anxiety Last Admin: 10/19/24 11:01 Dose: 25 mg Loperamide HCl (Loperamide Hcl 2 Mg Capsule) 4 mg PO Q6H PRN PRN Reason: loose stool Last Admin: 10/25/24 15:42 Dose: 4 mg Magnesium Hydroxide (Milk Of Magnesia 30 Ml Oral.Susp) 30 ml PO DAILY PRN PRN Reason: Constipation Nicotine (Nicotine 21 Mg Patch.Td24) 21 mg TRANSDERMA DAILY PRN PRN Reason: smoking cessation Last Admin: 11/06/24 09:03 Dose: 21 mg Nicotine Polacrilex (Nicotine Polacrilex 2 Mg Gum) 4 mg BUCCAL Q2H PRN PRN Reason: Nicotine Cravings Olanzapine (Olanzapine 5 Mg Tablet) 5 mg PO Q4H PRN PRN Reason: agitation,dissociation Last Admin: 10/22/24 12:22 Dose: 5 mg Olanzapine (Olanzapine 2.5 Mg Tablet) 2.5 mg PO BID [facility] Last Admin: 11/06/24 09:04 Dose: 2.5 mg Polyethyl Glycol/Propylene Glycol (Propylene Glycol/Peg 400 Gel Eye Drops 10ml) 1 drop EYE-BOTH BEDTIME [facility] Last Admin: 11/06/24 01:16 Dose: Not Given Saliva Substitute (Dry Mouth [place] 60 Ml [place]) 1 spray MUCOUS MEM Q2H PRN PRN Reason: dry mouth Last Admin: 11/05/24 23:25 Dose: 1 spray Saliva Substitute (Dry Mouth [place] 60 Ml [place]) 1 spray MUCOUS MEM Q2H PRN PRN Reason: Dry Mouth Trazodone HCl (Trazodone Hcl 50 Mg Tablet) 50 mg PO BEDTIME MRX1 PRN PRN Reason: Insomnia Allergies Allergies Allergy/AdvReac Type Severity Reaction Status Date / Time No Known Allergies Allergy Verified 07/17/23 15:13 Assessment & Plan Assessment & Plan (1) MDD (major depressive disorder), recurrent episode, moderate: Status: Acute Code(s): F33.1 - Major depressive disorder, recurrent, moderate (2) OCD (obsessive compulsive disorder): Status: Acute Code(s): F42.9 - Obsessive-compulsive disorder, unspecified Assessment and Plan: 11/06/24- Increase anafranil to 100 mg hs Increase olanzapine to 3.75 mg bid urine culture, urine for bv, ctng (3) PTSD (post-traumatic stress disorder): Status: Acute Code(s): F43.10 - Post-traumatic stress disorder, unspecified (4) Panic disorder: Status: Acute Code(s): F41.0 - Panic disorder [episodic paroxysmal anxiety] Plan 51-year-old female with a past medical history of anxiety, depression, PTSD, OCD, tobacco use and recent gallbladder surgery, hosptialist consult placed for ?conjuncitivitis. possible allergic conjunctivitis - no evidence of bacterial or viral conjunctivitis - pt rubs eyes often, could be allergic but sclera and conjunctiva appear normal - suggested she only wipe eyes with a clean, warm washcloth PRN - will try lubricating gtts - f/u with opthalmologist outpt Thank you for allowing me to participate in the pt's care. Signing off. Please contact the medical team if any questions or concerns. Reason for continued inpatient stay Substantial Risk for: rapid decompensation Time Spent With Patient Time: Total time managing care of this patient today ____ minutes.
[2024-11-06 19:41] VITALS: BP 109/61; PULSE 79; TEMP 36.9; O2SAT 99
[2024-11-06] MEDS: Propylene Glycol/PEG 400 Gel Eye Drops 10ML 1 DROP EYE-BOTH (20:55)
[2024-11-06] MEDS: Dry Mouth Spray 60 ML SPRAY 1 SPRAY MUCOUS MEM ×2 (20:55→22:53)
[2024-11-07 08:00] VITALS: BP 93/51; PULSE 60; RESP 16; TEMP 36.6; O2SAT 97
[2024-11-07] MEDS: Nicotine 21 MG PATCH.TD24 TRANSDERMA (08:58)
[2024-11-07 13:41] LABS: CT PCR NOT DETECTED (Not Detect.); NG PCR NOT DETECTED (Not Detect.)
[2024-11-07 14:12] LABS: Bacterial Vaginosis PCR POSITIVE (Negative); Candida Group PCR NOT DETECTED (Not Detect); Candida glab krusei PCR NOT DETECTED (Not Detect); Trichomonas vaginalis PCR NOT DETECTED (Not Detect)
--- NOTE | 2024-11-07 14:18 | HO.PSYCHPN ---
Subjective Subjective Date of Service: 11/07/24 Reason For Visit: Unspecified Depressive disorder, OCD Subjective Notes: Conditional Voluntary Healthcare Proxy: No Guardianship: No Medical Problems Affecting Mental Status: Yes Interim History: Reports UTI/BV sx. Testing postive for BV. Flagyl course to initiate. Incontinence continues to be an issues. Tolerating increase in Anafranil/Olanzapine Sx persist. Pt doing well as taking medicine is an effort for her. She continues to want to work with the team Medication Compliance: Yes Side effects from medications: No Attending Groups: No Review of Systems Acute medical concerns: No Medical Review of Systems: unchanged Review of Systems Review of Systems BV/UTI sx Incontinence Mental Status Exam Mental Status Exam Patient Appearance: Disheveled Patient Orientation: Person, Place, Time and Situation Level of Consciousness: Restless and Alert Patient Behavior: Talkative, Cooperative, Restless, Anxious, Fatigued and Good Eye Contact Behavior Comments: Repetitive, ritualistic behaviors Mood Description: Withdrawn, Depressed, Anxious and Apprehensive Affect Description: Flat Patient Cognition Impaired: No Ability to Follow Directions: Good Speech Pattern: Spontaneous Speech Memory Description: Episodic Impaired Hallucinations: None Perceptual Disturbances: Derealization Thought Process: Distracted and Rumination Thought Content: positive for Obsessional Thoughts, positive for Circumstantial, positive for Perseveration, positive for Preoccupation and positive for Suicidal Ideation (passive) Depressive Symptoms: Increased Anxiety, Diff. Making Decisions, Increased Irritability and Difficulty Concentrating Abnormal Motor Activity Signs and Symptoms: Hyperactivity and Restlessness Judgement: Fair Diagnostics Vital Signs (24Hr): Vital Signs - 24 hr 11/06/24 19:41 Temperature 98.4 F Pulse Rate 79 Blood Pressure 109/61 Pulse Oximetry 99 Oxygen Delivery Method Room Air BMI result Body Mass Index 18.9 Labs Labs: Laboratory Results - last 48 hr 11/06/24 15:30 Chlam trachomat DNA PCR NOT DETECTED N.gonorrhoeae DNA (PCR) NOT DETECTED T. vaginalis (PCR) NOT DETECTED Bact vaginosis (PCR) POSITIVE A C. krusei/glabrata (PCR) NOT DETECTED Maribeth group (PCR) NOT DETECTED Medications Medications Current Medications Acetaminophen (Acetaminophen 325 Mg Tablet) 650 mg PO Q6H PRN PRN Reason: Headache/Pain, Scale 1-10 Al Hydroxide/Mg Hydroxide (Magnesium Hydrox/Alum Hydrox 30 Ml Oral.Susp) 30 ml PO Q6H PRN PRN Reason: Heartburn/Nausea Clomipramine HCl (Clomipramine Hcl 25 Mg Capsule) 100 mg PO BEDTIME KIMI Last Admin: 11/06/24 20:57 Dose: 100 mg Clonazepam (Clonazepam 1 Mg Tablet) 1 mg PO TID PRN PRN Reason: Anxiety Last Admin: 11/07/24 08:58 Dose: 1 mg Hydroxyzine HCl (Hydroxyzine Hcl 25 Mg Tablet) 25 mg PO Q6H PRN PRN Reason: mild anxiety Last Admin: 10/19/24 11:01 Dose: 25 mg Loperamide HCl (Loperamide Hcl 2 Mg Capsule) 4 mg PO Q6H PRN PRN Reason: loose stool Last Admin: 10/25/24 15:42 Dose: 4 mg Magnesium Hydroxide (Milk Of Magnesia 30 Ml Oral.Susp) 30 ml PO DAILY PRN PRN Reason: Constipation Nicotine (Nicotine 21 Mg Patch.Td24) 21 mg TRANSDERMA DAILY PRN PRN Reason: smoking cessation Last Admin: 11/07/24 08:58 Dose: 21 mg Nicotine Polacrilex (Nicotine Polacrilex 2 Mg Gum) 4 mg BUCCAL Q2H PRN PRN Reason: Nicotine Cravings Olanzapine (Olanzapine 5 Mg Tablet) 5 mg PO Q4H PRN PRN Reason: agitation,dissociation Last Admin: 10/22/24 12:22 Dose: 5 mg Olanzapine (Olanzapine 2.5 Mg Tablet) 3.75 mg PO BID [facility] Last Admin: 11/07/24 08:58 Dose: 3.75 mg Polyethyl Glycol/Propylene Glycol (Propylene Glycol/Peg 400 Gel Eye Drops 10ml) 1 drop EYE-BOTH BEDTIME [facility] Last Admin: 11/06/24 20:55 Dose: 1 drop Saliva Substitute (Dry Mouth [place] 60 Ml [place]) 1 spray MUCOUS MEM Q2H PRN PRN Reason: dry mouth Last Admin: 11/06/24 22:53 Dose: 1 spray Saliva Substitute (Dry Mouth [place] 60 Ml [place]) 1 spray MUCOUS MEM Q2H PRN PRN Reason: Dry Mouth Trazodone HCl (Trazodone Hcl 50 Mg Tablet) 50 mg PO BEDTIME MRX1 PRN PRN Reason: Insomnia Allergies Allergies Allergy/AdvReac Type Severity Reaction Status Date / Time No Known Allergies Allergy Verified 07/17/23 15:13 Assessment & Plan Assessment & Plan (1) MDD (major depressive disorder), recurrent episode, moderate: Status: Acute Code(s): F33.1 - Major depressive disorder, recurrent, moderate (2) OCD (obsessive compulsive disorder): Status: Acute Code(s): F42.9 - Obsessive-compulsive disorder, unspecified (3) PTSD (post-traumatic stress disorder): Status: Acute Code(s): F43.10 - Post-traumatic stress disorder, unspecified (4) Panic disorder: Status: Acute Code(s): F41.0 - Panic disorder [episodic paroxysmal anxiety] Plan 11/07: Continue tx. Encourage pt to continue Tx for BV Patient educated on: medication risk/benefits and therapeutic strategies Informed Consent: understands Reason for continued inpatient stay Substantial Risk for: rapid decompensation Time Spent With Patient Time: Total time managing care of this patient today ____ minutes.
[2024-11-07 20:00] VITALS: BP 110/59; PULSE 71; RESP 16; TEMP 36.6; O2SAT 100
[2024-11-07] MEDS: Propylene Glycol/PEG 400 Gel Eye Drops 10ML 1 DROP EYE-BOTH (21:29)
[2024-11-07] MEDS: Dry Mouth Spray 60 ML SPRAY 1 SPRAY MUCOUS MEM (21:56)
[2024-11-08 08:00] VITALS: BP 102/57; PULSE 59; RESP 16; TEMP 36.3; O2SAT 99
--- NOTE | 2024-11-08 10:17 | HO.PSYCHPN ---
Subjective Subjective Date of Service: 11/08/24 Reason For Visit: Unspecified Depressive disorder, OCD Subjective Notes: Conditional Voluntary Healthcare Proxy: No Guardianship: No Medical Problems Affecting Mental Status: No Interim History: Looking to discharge 11/12. Asking to pay her bills on line. Reports urology did not see her, however note is written, martina suggested. Anticholinergic SE noted, however pt does not tolerate SSRI's. I will see my own. Asks for housing resources- [employer], [place], needs help with rent, fears she will lose apartment. Today, appears improved-able to discuss concerns, no rituals during our meeting-more focused, however pt does not see this. Willing to continue titration post discharge. Medication Compliance: Yes Side effects from medications: Yes (dry mouth) Attending Groups: No Review of Systems Acute medical concerns: Yes Review of Systems Review of Systems incontinence-urinary new report of fecal incontinence since lap ben Mental Status Exam Mental Status Exam Patient Appearance: Disheveled Patient Orientation: Person, Place, Time and Situation Level of Consciousness: Restless and Alert Patient Behavior: Talkative, Cooperative, Restless, Anxious, Fatigued and Good Eye Contact Mood Description: Withdrawn, Depressed, Anxious and Apprehensive Affect Description: Flat Patient Cognition Impaired: No Ability to Follow Directions: Good Speech Pattern: Spontaneous Speech Memory Description: Episodic Impaired Hallucinations: None Perceptual Disturbances: Derealization Thought Process: Distracted and Rumination Thought Content: positive for Obsessional Thoughts, positive for Circumstantial, positive for Perseveration, positive for Preoccupation and positive for Suicidal Ideation (passive) Depressive Symptoms: Increased Anxiety, Diff. Making Decisions, Increased Irritability and Difficulty Concentrating Abnormal Motor Activity Signs and Symptoms: Hyperactivity and Restlessness Judgement: Fair Diagnostics Vital Signs (24Hr): Vital Signs - 24 hr 11/07/24 20:00 11/08/24 08:00 Temperature 97.8 F 97.4 F Pulse Rate 71 59 Respiratory Rate 16 16 Blood Pressure 110/59 L 102/57 L Pulse Oximetry 100 99 Oxygen Delivery Method Room Air BMI result Body Mass Index 18.9 Labs Labs: Laboratory Results - last 48 hr 11/06/24 15:30 Chlam trachomat DNA PCR NOT DETECTED N.gonorrhoeae DNA (PCR) NOT DETECTED T. vaginalis (PCR) NOT DETECTED Bact vaginosis (PCR) POSITIVE A C. krusei/glabrata (PCR) NOT DETECTED Maribeth group (PCR) NOT DETECTED Medications Medications Current Medications Acetaminophen (Acetaminophen 325 Mg Tablet) 650 mg PO Q6H PRN PRN Reason: Headache/Pain, Scale 1-10 Al Hydroxide/Mg Hydroxide (Magnesium Hydrox/Alum Hydrox 30 Ml Oral.Susp) 30 ml PO Q6H PRN PRN Reason: Heartburn/Nausea Clomipramine HCl (Clomipramine Hcl 25 Mg Capsule) 100 mg PO BEDTIME [facility] Last Admin: 11/07/24 21:35 Dose: 100 mg Clonazepam (Clonazepam 1 Mg Tablet) 1 mg PO TID PRN PRN Reason: Anxiety Last Admin: 11/07/24 20:15 Dose: 1 mg Hydroxyzine HCl (Hydroxyzine Hcl 25 Mg Tablet) 25 mg PO Q6H PRN PRN Reason: mild anxiety Last Admin: 10/19/24 11:01 Dose: 25 mg Loperamide HCl (Loperamide Hcl 2 Mg Capsule) 4 mg PO Q6H PRN PRN Reason: loose stool Last Admin: 10/25/24 15:42 Dose: 4 mg Magnesium Hydroxide (Milk Of Magnesia 30 Ml Oral.Susp) 30 ml PO DAILY PRN PRN Reason: Constipation Metronidazole (Metronidazole 500 Mg Tablet) 500 mg PO BID [facility] Stop: 11/15/24 21:01 Last Admin: 11/07/24 21:31 Dose: 500 mg Nicotine (Nicotine 21 Mg Patch.Td24) 21 mg TRANSDERMA DAILY PRN PRN Reason: smoking cessation Last Admin: 11/07/24 08:58 Dose: 21 mg Nicotine Polacrilex (Nicotine Polacrilex 2 Mg Gum) 4 mg BUCCAL Q2H PRN PRN Reason: Nicotine Cravings Olanzapine (Olanzapine 5 Mg Tablet) 5 mg PO Q4H PRN PRN Reason: agitation,dissociation Last Admin: 10/22/24 12:22 Dose: 5 mg Olanzapine (Olanzapine 2.5 Mg Tablet) 3.75 mg PO BID [facility] Last Admin: 11/07/24 21:32 Dose: 3.75 mg Polyethyl Glycol/Propylene Glycol (Propylene Glycol/Peg 400 Gel Eye Drops 10ml) 1 drop EYE-BOTH BEDTIME KIMI Last Admin: 11/07/24 21:29 Dose: 1 drop Saliva Substitute (Dry Mouth [place] 60 Ml [place]) 1 spray MUCOUS MEM Q2H PRN PRN Reason: dry mouth Last Admin: 11/07/24 21:56 Dose: 1 spray Saliva Substitute (Dry Mouth [place] 60 Ml [place]) 1 spray MUCOUS MEM Q2H PRN PRN Reason: Dry Mouth Trazodone HCl (Trazodone Hcl 50 Mg Tablet) 50 mg PO BEDTIME MRX1 PRN PRN Reason: Insomnia Allergies Allergies Allergy/AdvReac Type Severity Reaction Status Date / Time No Known Allergies Allergy Verified 07/17/23 15:13 Assessment & Plan Assessment & Plan (1) MDD (major depressive disorder), recurrent episode, moderate: Status: Acute Code(s): F33.1 - Major depressive disorder, recurrent, moderate (2) OCD (obsessive compulsive disorder): Status: Acute Code(s): F42.9 - Obsessive-compulsive disorder, unspecified Assessment and Plan: 11/06/24- Increase anafranil to 100 mg hs Increase olanzapine to 3.75 mg bid urine culture, urine for bv, ctng 11/08- Monitor incontinence Pt asking for discharge on 11/12/24 (3) PTSD (post-traumatic stress disorder): Status: Acute Code(s): F43.10 - Post-traumatic stress disorder, unspecified (4) Panic disorder: Status: Acute Code(s): F41.0 - Panic disorder [episodic paroxysmal anxiety] Plan 51-year-old female with a past medical history of anxiety, depression, PTSD, OCD, tobacco use and recent gallbladder surgery, hosptialist consult placed for ?conjuncitivitis. possible allergic conjunctivitis - no evidence of bacterial or viral conjunctivitis - pt rubs eyes often, could be allergic but sclera and conjunctiva appear normal - suggested she only wipe eyes with a clean, warm washcloth PRN - will try lubricating gtts - f/u with opthalmologist outpt Thank you for allowing me to participate in the pt's care. Signing off. Please contact the medical team if any questions or concerns. Reason for continued inpatient stay Substantial Risk for: rapid decompensation Time Spent With Patient Time: Total time managing care of this patient today ____ minutes.
--- NOTE | 2024-11-08 10:20 | P.CNUR_ITS ---
History of Present Illness Consult details Consult date: 11/07/24 Narrative: CC: Urinary incontinence 59-year-old female Admit for major depressive disorder with OCD - is involved with significant ritulistic behaviors Has reported urinary urgency and frequency Minimal evidence of nocturia Is managed for dry eye and dry mouth side effects from current medications Difficult to determine if urinary frequency and urge is part of overall perseveration phenomena Would not be good candidate for traditional anticholinergic medications If treating psychiatric team feel it is appropriate to trial medication would suggest myrbetriq Review of Systems Constitutional: Constitutional: Reports as per HPI and Reports no additional constitutional complaints Cardiovascular: Cardiovascular: Reports as per HPI and Reports no additional cardiovascular complaints Respiratory: Respiratory: Reports as per HPI and Reports no additional respiratory complaints Gastrointestinal: Gastrointestinal: Reports as per HPI and Reports no sd tional gastrointestinal complaints Genitourinary: Genitourinary: Reports as per HPI Musculoskeletal: Musculoskeletal: Reports no additional musculoskeletal complaints and Reports as per HPI Neurologic: Reports system reviewed and no additional complaints, except as documented and Reports as per HPI PMFSH Past Medical History Medical History Panic disorder PTSD (post-traumatic stress disorder) OCD (obsessive compulsive disorder) Family History Family History Brother Bipolar disorder, unspecified Psychosis Social History Social History Household Members: None Housing: Apartment Do you presently have visiting nurse or other home services: No Alcohol intake: never Patient Tobacco Use Status: Current everyday Tobacco user Tobacco use type: Cigarette Cigarette Packs Per Day: 1.5 Cigarettes Per Day: 30.0 Years Smoked: 35 Smoked in Last 30 Days: Yes e-Cigarette/Vaping Use: Never Used Patient Interested in Nicotine Replacement: No Patient Given Instructions on How to Stop Smoking: No Second Hand Smoke Exposure: Yes Currently Displaying Signs/Symptoms of Drug Intoxication Withdrawal: No Have you been hit, kicked, punched, or otherwise hurt by someone within the past year? If so, by whom?: No Do you feel safe in your current relationship?: No Current Relationship Is there a partner from a previous relationship who is making you feel unsafe now?: No Are you made to feel afraid or neglected: No Spiritual Healthcare Practices: none Anabaptism Healthcare Practices: none Cultural Healthcare Practices: none Advance Directives: No Advance Directives Information Provided: No Do you have thoughts of harming others: None Do you have a plan to hurt others: No Plan Recently lost weight without trying: Yes How much weight loss: 34pounds or more Eating poorly because of decreased appetite: Yes Nutrition screen score: 7 Nutrition Risks: Poor intake 0-25% >4 days Patient : No : No Poor oral hygiene: No service: No Current occupational status: unemployed Sexual orientation: Straight/Heterosexual Gender identity: Female Meds Allergies Allergy/AdvReac Type Severity Reaction Status Date / Time No Known Allergies Allergy Verified 07/17/23 15:13 Active Medications: Current Medications Acetaminophen (Acetaminophen 325 Mg Tablet) 650 mg PO Q6H PRN PRN Reason: Headache/Pain, Scale 1-10 Al Hydroxide/Mg Hydroxide (Magnesium Hydrox/Alum Hydrox 30 Ml Oral.Susp) 30 ml PO Q6H PRN PRN Reason: Heartburn/Nausea Clomipramine HCl (Clomipramine Hcl 25 Mg Capsule) 100 mg PO BEDTIME [facility] Last Admin: 11/07/24 21:35 Dose: 100 mg Clonazepam (Clonazepam 1 Mg Tablet) 1 mg PO TID PRN PRN Reason: Anxiety Last Admin: 11/07/24 20:15 Dose: 1 mg Hydroxyzine HCl (Hydroxyzine Hcl 25 Mg Tablet) 25 mg PO Q6H PRN PRN Reason: mild anxiety Last Admin: 10/19/24 11:01 Dose: 25 mg Loperamide HCl (Loperamide Hcl 2 Mg Capsule) 4 mg PO Q6H PRN PRN Reason: loose stool Last Admin: 10/25/24 15:42 Dose: 4 mg Magnesium Hydroxide (Milk Of Magnesia 30 Ml Oral.Susp) 30 ml PO DAILY PRN PRN Reason: Constipation Metronidazole (Metronidazole 500 Mg Tablet) 500 mg PO BID [facility] Stop: 11/15/24 21:01 Last Admin: 11/07/24 21:31 Dose: 500 mg Nicotine (Nicotine 21 Mg Patch.Td24) 21 mg TRANSDERMA DAILY PRN PRN Reason: smoking cessation Last Admin: 11/07/24 08:58 Dose: 21 mg Nicotine Polacrilex (Nicotine Polacrilex 2 Mg Gum) 4 mg BUCCAL Q2H PRN PRN Reason: Nicotine Cravings Olanzapine (Olanzapine 5 Mg Tablet) 5 mg PO Q4H PRN PRN Reason: agitation,dissociation Last Admin: 10/22/24 12:22 Dose: 5 mg Olanzapine (Olanzapine 2.5 Mg Tablet) 3.75 mg PO BID [facility] Last Admin: 11/07/24 21:32 Dose: 3.75 mg Polyethyl Glycol/Propylene Glycol (Propylene Glycol/Peg 400 Gel Eye Drops 10ml) 1 drop EYE-BOTH BEDTIME [facility] Last Admin: 11/07/24 21:29 Dose: 1 drop Saliva Substitute (Dry Mouth [place] 60 Ml [place]) 1 spray MUCOUS MEM Q2H PRN PRN Reason: dry mouth Last Admin: 11/07/24 21:56 Dose: 1 spray Saliva Substitute (Dry Mouth [place] 60 Ml [place]) 1 spray MUCOUS MEM Q2H PRN PRN Reason: Dry Mouth Trazodone HCl (Trazodone Hcl 50 Mg Tablet) 50 mg PO BEDTIME MRX1 PRN PRN Reason: Insomnia Physical Exam Vital Signs: Vital Signs: Last Vital Signs Temp 97.4 F 11/08/24 08:00 Pulse 59 11/08/24 08:00 Resp 16 11/08/24 08:00 BP 102/57 L 11/08/24 08:00 Pulse Ox 99 11/08/24 08:00 O2 Del Method Room Air 11/07/24 20:00 BMI result Body Mass Index 18.9 Const: General: cooperative, healthy appearing, comfortable and no acute distress Orientation/consciousness: patient oriented x3 HEENT: Face and sinus: Yes normal facial exam Mouth: moist mucous membranes Neck: Neck: Yes normal visual inspection, Yes full ROM and Yes trachea midline Chest: Chest palpation & inspection: normal inspection of the chest Resp: Effort & Inspection: normal respiratory effort, able to speak in complete sentences and no respiratory distress GI: Inspection: Yes normal to inspection Back/Spine/Pelvis: Cervical Spine: normal cervical lordosis Thoracic/Lumbar Spine: thoracic and lumbar spine normal to inspection Skin: General skin exam: no rashes or lesions noted Neuro: General: patient oriented x3, tone normal and moves all extremities Extrem: General: Yes normal to inspection and Yes capillary refill normal Results Labs Labs: Abnormal lab results 11/06/24 Range/Units 15:30 Bact vaginosis (PCR) POSITIVE A (Negative) All other labs normal. Assessment and Plan (1) Urinary urgency: Status: Acute Plan Difficult to differentiate from ritualistic OCD behavior If treating team feel medication is worth considering recommendation for beta agonist Myrbetriq Procedures Date of Service Date of Service: 11/08/24
[2024-11-08] MEDS: Nicotine 21 MG PATCH.TD24 TRANSDERMA (10:21)
[2024-11-08] MEDS: Dry Mouth Spray 60 ML SPRAY 1 SPRAY MUCOUS MEM ×3 (10:23→23:34)
[2024-11-08 20:00] VITALS: BP 118/65; PULSE 76; TEMP 36.4; O2SAT 100
[2024-11-08] MEDS: Propylene Glycol/PEG 400 Gel Eye Drops 10ML 1 DROP EYE-BOTH (20:52)
[2024-11-09 08:00] VITALS: BP 119/68; PULSE 61; TEMP 36.4; O2SAT 98
--- NOTE | 2024-11-09 08:20 | P.PNPSI_ITS ---
Subjective Subjective Date of Service: 11/09/24 Reason For Visit: Unspecified Depressive disorder, OCD Interim History: met with patient. Discussed with nursing. Patient reports things are perhaps a little bit better regarding panic symptoms and OCD. Reports it is still present pervasively however but slightly less intense. No SI. No psychosis. Feeling supported and cared for. Reports having sleeping a lot for example did not remember sleeping through breakfast. Also reports some urinary incontinence and unsure if excess sleep and incontinence is medication related- Was on Klonopin same dose prior to admission, clomipramine and olanzapine increased since will discuss regimen options with patient tomorrow. Mental Status Exam Mental Status Exam Patient Appearance: Disheveled Patient Orientation: Person, Place, Time and Situation Level of Consciousness: Restless and Alert Patient Behavior: Talkative, Cooperative, Restless, Anxious, Fatigued and Good Eye Contact Mood Description: Withdrawn, Depressed, Anxious and Apprehensive Affect Description: Flat Patient Cognition Impaired: No Ability to Follow Directions: Good Speech Pattern: Spontaneous Speech Memory Description: Episodic Impaired Hallucinations: None Thought Process: Distracted and Rumination Thought Content: positive for Obsessional Thoughts, positive for Circumstantial, positive for Perseveration and positive for Preoccupation Depressive Symptoms: Increased Anxiety, Diff. Making Decisions and Difficulty Concentrating Abnormal Motor Activity Signs and Symptoms: Hyperactivity and Restlessness Judgement: Fair Diagnostics Vital Signs (24Hr): Vital Signs - 24 hr 11/08/24 20:00 Temperature 97.6 F Pulse Rate 76 Blood Pressure 118/65 Pulse Oximetry 100 Oxygen Delivery Method Room Air BMI result Body Mass Index 18.9 Labs Labs: Laboratory Results - last 48 hr 11/06/24 15:30 Chlam trachomat DNA PCR NOT DETECTED N.gonorrhoeae DNA (PCR) NOT DETECTED T. vaginalis (PCR) NOT DETECTED Bact vaginosis (PCR) POSITIVE A C. krusei/glabrata (PCR) NOT DETECTED Maribeth group (PCR) NOT DETECTED Medications Medications Current Medications Acetaminophen (Acetaminophen 325 Mg Tablet) 650 mg PO Q6H PRN PRN Reason: Headache/Pain, Scale 1-10 Al Hydroxide/Mg Hydroxide (Magnesium Hydrox/Alum Hydrox 30 Ml Oral.Susp) 30 ml PO Q6H PRN PRN Reason: Heartburn/Nausea Clomipramine HCl (Clomipramine Hcl 25 Mg Capsule) 100 mg PO BEDTIME [facility] Last Admin: 11/08/24 20:52 Dose: 100 mg Clonazepam (Clonazepam 1 Mg Tablet) 1 mg PO TID PRN PRN Reason: Anxiety Last Admin: 11/08/24 14:38 Dose: 1 mg Hydroxyzine HCl (Hydroxyzine Hcl 25 Mg Tablet) 25 mg PO Q6H PRN PRN Reason: mild anxiety Last Admin: 10/19/24 11:01 Dose: 25 mg Loperamide HCl (Loperamide Hcl 2 Mg Capsule) 4 mg PO Q6H PRN PRN Reason: loose stool Last Admin: 10/25/24 15:42 Dose: 4 mg Magnesium Hydroxide (Milk Of Magnesia 30 Ml Oral.Susp) 30 ml PO DAILY PRN PRN Reason: Constipation Metronidazole (Metronidazole 500 Mg Tablet) 500 mg PO BID [facility] Stop: 11/15/24 21:01 Last Admin: 11/08/24 20:53 Dose: 500 mg Nicotine (Nicotine 21 Mg Patch.Td24) 21 mg TRANSDERMA DAILY PRN PRN Reason: smoking cessation Last Admin: 11/08/24 10:21 Dose: 21 mg Nicotine Polacrilex (Nicotine Polacrilex 2 Mg Gum) 4 mg BUCCAL Q2H PRN PRN Reason: Nicotine Cravings Olanzapine (Olanzapine 5 Mg Tablet) 5 mg PO Q4H PRN PRN Reason: agitation,dissociation Last Admin: 10/22/24 12:22 Dose: 5 mg Olanzapine (Olanzapine 7.5 Mg Tablet) 3.75 mg PO BID [facility] Last Admin: 11/08/24 20:49 Dose: Not Given Polyethyl Glycol/Propylene Glycol (Propylene Glycol/Peg 400 Gel Eye Drops 10ml) 1 drop EYE-BOTH BEDTIME [facility] Last Admin: 11/08/24 20:52 Dose: 1 drop Saliva Substitute (Dry Mouth [place] 60 Ml [place]) 1 spray MUCOUS MEM Q2H PRN PRN Reason: dry mouth Last Admin: 11/08/24 23:34 Dose: 1 spray Saliva Substitute (Dry Mouth [place] 60 Ml [place]) 1 spray MUCOUS MEM Q2H PRN PRN Reason: Dry Mouth Trazodone HCl (Trazodone Hcl 50 Mg Tablet) 50 mg PO BEDTIME MRX1 PRN PRN Reason: Insomnia Allergies Allergies Allergy/AdvReac Type Severity Reaction Status Date / Time No Known Allergies Allergy Verified 07/17/23 15:13 Assessment & Plan Assessment & Plan (1) MDD (major depressive disorder), recurrent episode, moderate: Status: Acute Code(s): F33.1 - Major depressive disorder, recurrent, moderate (2) OCD (obsessive compulsive disorder): Status: Acute Code(s): F42.9 - Obsessive-compulsive disorder, unspecified Assessment and Plan: 11/06/24- Increase anafranil to 100 mg hs Increase olanzapine to 3.75 mg bid urine culture, urine for bv, ctng 11/08- Monitor incontinence Pt asking for discharge on 11/12/24 11/09/2024: Reports some small improvements and panic and OCD symptoms. Reports having sleeping a lot for example did not remember sleeping through breakfast. Also reports some urinary incontinence and unsure if excess sleep and incontinence is medication related- Was on Klonopin same dose prior to admission, clomipramine and olanzapine increased since will discuss regimen options with patient tomorrow. (3) PTSD (post-traumatic stress disorder): Status: Acute Code(s): F43.10 - Post-traumatic stress disorder, unspecified (4) Panic disorder: Status: Acute Code(s): F41.0 - Panic disorder [episodic paroxysmal anxiety] Plan 51-year-old female with a past medical history of anxiety, depression, PTSD, OCD, tobacco use and recent gallbladder surgery, hosptialist consult placed for ?conjuncitivitis. possible allergic conjunctivitis - no evidence of bacterial or viral conjunctivitis - pt rubs eyes often, could be allergic but sclera and conjunctiva appear normal - suggested she only wipe eyes with a clean, warm washcloth PRN - will try lubricating gtts - f/u with opthalmologist outpt Thank you for allowing me to participate in the pt's care. Signing off. Please contact the medical team if any questions or concerns. Reason for continued inpatient stay Substantial Risk for: inability to function and rapid decompensation Time Spent With Patient Time: Total time managing care of this patient today ____ minutes.
[2024-11-09] MEDS: Nicotine 21 MG PATCH.TD24 TRANSDERMA (10:16)
[2024-11-09] MEDS: Dry Mouth Spray 60 ML SPRAY 1 SPRAY MUCOUS MEM ×2 (10:17→21:02)
[2024-11-09 20:00] VITALS: BP 131/69; PULSE 77; TEMP 36.8; O2SAT 99
[2024-11-09] MEDS: Propylene Glycol/PEG 400 Gel Eye Drops 10ML 1 DROP EYE-BOTH (21:02)
--- NOTE | 2024-11-10 07:27 | P.PNPSI_ITS ---
Subjective Subjective Date of Service: 11/10/24 Reason For Visit: Unspecified Depressive disorder, OCD Interim History: met with patient. Discussed with nursing. Overall still feels a little bit better regarding panic symptoms and OCD. Ref sleep and urinary incontinence at night- attributes this to olanzapine (was not on same pre admission) and wants to stop same- refused this last night and today so will formally DC and track OCD/mood symptoms. Otherwise, no SI. No psychosis. Feeling supported and cared for. Medication Compliance: Yes Side effects from medications: Yes (unclear if olanzapine causing excess sleep a nd incontinence) Attending Groups: Intermittent Review of Systems Acute medical concerns: No Review of Systems Review of Systems nothing acute Mental Status Exam Mental Status Exam Narrative: Pt is alert and oriented; behavior is, anxious, lying in bed; patient is not in distress; unkempt; mood is anxious and affect congruent; eye contact appropriat e; Speech is normal rate, volume and prosody and not pressured; psychomotor retardation present; thought process is organized and goal directed; Thought content is perseverative on symptoms, side-effects; denies any SI/HI. Denies AVH and there is no evidence of perceptual disturbance. Patients insight and judgment are fair. Patient Appearance: Disheveled Patient Orientation: Person, Place, Time and Situation Level of Consciousness: Restless and Alert Patient Behavior: Talkative, Cooperative, Restless, Anxious, Fatigued and Good Eye Contact Behavior Comments: Repetitive, ritualistic behaviors Mood Description: Withdrawn, Depressed, Anxious and Apprehensive Affect Description: Flat Patient Cognition Impaired: No Ability to Follow Directions: Good Speech Pattern: Spontaneous Speech Memory Description: Episodic Impaired Diagnostics Vital Signs (24Hr): Vital Signs - 24 hr 11/09/24 08:00 11/09/24 20:00 Temperature 97.5 F 98.2 F Pulse Rate 61 77 Blood Pressure 119/68 131/69 Pulse Oximetry 98 99 Oxygen Delivery Method Room Air Room Air BMI result Body Mass Index 18.9 Medications Medications Current Medications Acetaminophen (Acetaminophen 325 Mg Tablet) 650 mg PO Q6H PRN PRN Reason: Headache/Pain, Scale 1-10 Al Hydroxide/Mg Hydroxide (Magnesium Hydrox/Alum Hydrox 30 Ml Oral.Susp) 30 ml PO Q6H PRN PRN Reason: Heartburn/Nausea Clomipramine HCl (Clomipramine Hcl 25 Mg Capsule) 100 mg PO BEDTIME [facility] Last Admin: 11/09/24 20:56 Dose: 100 mg Clonazepam (Clonazepam 1 Mg Tablet) 1 mg PO TID PRN PRN Reason: Anxiety Last Admin: 11/09/24 16:11 Dose: 1 mg Hydroxyzine HCl (Hydroxyzine Hcl 25 Mg Tablet) 25 mg PO Q6H PRN PRN Reason: mild anxiety Last Admin: 10/19/24 11:01 Dose: 25 mg Loperamide HCl (Loperamide Hcl 2 Mg Capsule) 4 mg PO Q6H PRN PRN Reason: loose stool Last Admin: 10/25/24 15:42 Dose: 4 mg Magnesium Hydroxide (Milk Of Magnesia 30 Ml Oral.Susp) 30 ml PO DAILY PRN PRN Reason: Constipation Metronidazole (Metronidazole 500 Mg Tablet) 500 mg PO BID [facility] Stop: 11/15/24 21:01 Last Admin: 11/09/24 20:56 Dose: 500 mg Nicotine (Nicotine 21 Mg Patch.Td24) 21 mg TRANSDERMA DAILY PRN PRN Reason: smoking cessation Last Admin: 11/09/24 10:16 Dose: 21 mg Nicotine Polacrilex (Nicotine Polacrilex 2 Mg Gum) 4 mg BUCCAL Q2H PRN PRN Reason: Nicotine Cravings Olanzapine (Olanzapine 5 Mg Tablet) 5 mg PO Q4H PRN PRN Reason: agitation,dissociation Last Admin: 11/09/24 10:17 Dose: 5 mg Olanzapine (Olanzapine 7.5 Mg Tablet) 3.75 mg PO BID [facility] Last Admin: 11/09/24 21:22 Dose: Not Given Polyethyl Glycol/Propylene Glycol (Propylene Glycol/Peg 400 Gel Eye Drops 10ml) 1 drop EYE-BOTH BEDTIME [facility] Last Admin: 11/09/24 21:02 Dose: 1 drop Saliva Substitute (Dry Mouth [place] 60 Ml [place]) 1 spray MUCOUS MEM Q2H PRN PRN Reason: dry mouth Last Admin: 11/09/24 21:02 Dose: 1 spray Saliva Substitute (Dry Mouth [place] 60 Ml [place]) 1 spray MUCOUS MEM Q2H PRN PRN Reason: Dry Mouth Trazodone HCl (Trazodone Hcl 50 Mg Tablet) 50 mg PO BEDTIME MRX1 PRN PRN Reason: Insomnia Allergies Allergies Allergy/AdvReac Type Severity Reaction Status Date / Time No Known Allergies Allergy Verified 07/17/23 15:13 Assessment & Plan Assessment & Plan (1) MDD (major depressive disorder), recurrent episode, moderate: Status: Acute Code(s): F33.1 - Major depressive disorder, recurrent, moderate (2) OCD (obsessive compulsive disorder): Status: Acute Code(s): F42.9 - Obsessive-compulsive disorder, unspecified Assessment and Plan: 11/06/24- Increase anafranil to 100 mg hs Increase olanzapine to 3.75 mg bid urine culture, urine for bv, ctng 11/08- Monitor incontinence Pt asking for discharge on 11/12/24 11/09/2024: Reports some small improvements and panic and OCD symptoms. Reports having sleeping a lot for example did not remember sleeping through breakfast. Also reports some urinary incontinence and unsure if excess sleep and incontinence is medication related- Was on Klonopin same dose prior to admission, clomipramine and olanzapine increased since will discuss regimen options with patient tomorrow. 11/10: Ref sleep and urinary incontinence at night- attributes this to olanzapine (was not on same pre admission) and wants to stop same- refused this last night and today so will formally DC and track OCD/mood symptoms. (3) PTSD (post-traumatic stress disorder): Status: Acute Code(s): F43.10 - Post-traumatic stress disorder, unspecified (4) Panic disorder: Status: Acute Code(s): F41.0 - Panic disorder [episodic paroxysmal anxiety] Plan 51-year-old female with a past medical history of anxiety, depression, PTSD, OCD, tobacco use and recent gallbladder surgery, hosptialist consult placed for ?conjuncitivitis. possible allergic conjunctivitis - no evidence of bacterial or viral conjunctivitis - pt rubs eyes often, could be allergic but sclera and conjunctiva appear normal - suggested she only wipe eyes with a clean, warm washcloth PRN - will try lubricating gtts - f/u with opthalmologist outpt Thank you for allowing me to participate in the pt's care. Signing off. Please contact the medical team if any questions or concerns. Reason for continued inpatient stay Substantial Risk for: inability to function Time Spent With Patient Time: Total time managing care of this patient today ____ minutes.
[2024-11-10 08:00] VITALS: BP 100/58; PULSE 68; TEMP 36.4; O2SAT 96
[2024-11-10] MEDS: Nicotine 21 MG PATCH.TD24 TRANSDERMA (08:39)
[2024-11-10] MEDS: Dry Mouth Spray 60 ML SPRAY 1 SPRAY MUCOUS MEM ×2 (08:40→20:54)
[2024-11-10 20:00] VITALS: BP 128/60; PULSE 72; TEMP 36.5; O2SAT 96
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
[2024-11-10] MEDS: Propylene Glycol/PEG 400 Gel Eye Drops 10ML 1 DROP EYE-BOTH (22:07)
[2024-11-11 07:46] VITALS: BP 111/68; PULSE 73; RESP 16; TEMP 36.9; O2SAT 100
[2024-11-11] MEDS: Dry Mouth Spray 60 ML SPRAY 1 SPRAY MUCOUS MEM (08:33)
--- NOTE | 2024-11-11 11:01 | P.PNPSI_ITS ---
Subjective Subjective Date of Service: 11/11/24 Reason For Visit: Unspecified Depressive disorder, OCD Interim History: met with patient. Discussed with nursing. Angry last night- hit wrists/hands against each other. Pt no clear explanation of same one of those days . Hopeful today. PRN olanzapine helpful but does not wnat it scheduled. Otherwise, no SI. No psychosis. Feeling supported and cared for. Medication Compliance: Yes Side effects from medications: No Attending Groups: Intermittent Review of Systems Acute medical concerns: No Review of Systems Review of Systems nothing acute Mental Status Exam Mental Status Exam Narrative: Pt is alert and oriented; behavior is, anxious, lying in bed; patient is not in distress; unkempt; mood is depressed and affect congruent; eye contact appropriate; Speech is normal rate, volume and prosody and not pressured; psychomotor retardation present; thought process is organized and goal directed; Thought content is perseverative on symptoms, side-effects; denies any SI/HI. Denies AVH and there is no evidence of perceptual disturbance. Patients insight and judgment are fair. Diagnostics Vital Signs (24Hr): Vital Signs - 24 hr 11/10/24 20:00 11/11/24 07:46 Temperature 97.7 F 98.4 F Pulse Rate 72 73 Respiratory Rate 16 Blood Pressure 128/60 111/68 Pulse Oximetry 96 100 Oxygen Delivery Method Room Air Room Air BMI result Body Mass Index 18.9 Medications Medications Current Medications Acetaminophen (Acetaminophen 325 Mg Tablet) 650 mg PO Q6H PRN PRN Reason: Headache/Pain, Scale 1-10 Al Hydroxide/Mg Hydroxide (Magnesium Hydrox/Alum Hydrox 30 Ml Oral.Susp) 30 ml PO Q6H PRN PRN Reason: Heartburn/Nausea Carbamide Peroxide (Carbamide Peroxide 6.5% Otic 15 Ml Drpbtl) 5 drop EAR-BOTH BID KIMI Stop: 11/14/24 18:06 Last Admin: 11/11/24 09:47 Dose: Not Given Clomipramine HCl (Clomipramine Hcl 25 Mg Capsule) 100 mg PO BEDTIME KIMI Last Admin: 11/10/24 20:54 Dose: 100 mg Hydroxyzine HCl (Hydroxyzine Hcl 25 Mg Tablet) 25 mg PO Q6H PRN PRN Reason: mild anxiety Last Admin: 10/19/24 11:01 Dose: 25 mg Loperamide HCl (Loperamide Hcl 2 Mg Capsule) 4 mg PO Q6H PRN PRN Reason: loose stool Last Admin: 10/25/24 15:42 Dose: 4 mg Magnesium Hydroxide (Milk Of Magnesia 30 Ml Oral.Susp) 30 ml PO DAILY PRN PRN Reason: Constipation Metronidazole (Metronidazole 500 Mg Tablet) 500 mg PO BID KIMI Stop: 11/15/24 21:01 Last Admin: 11/11/24 08:31 Dose: 500 mg Nicotine (Nicotine 21 Mg Patch.Td24) 21 mg TRANSDERMA DAILY PRN PRN Reason: smoking cessation Last Admin: 11/10/24 08:39 Dose: 21 mg Nicotine Polacrilex (Nicotine Polacrilex 2 Mg Gum) 4 mg BUCCAL Q2H PRN PRN Reason: Nicotine Cravings Olanzapine (Olanzapine 5 Mg Tablet) 5 mg PO Q4H PRN PRN Reason: agitation,dissociation Last Admin: 11/10/24 17:35 Dose: 5 mg Polyethyl Glycol/Propylene Glycol (Propylene Glycol/Peg 400 Gel Eye Drops 10ml) 1 drop EYE-BOTH BEDTIME KIMI Last Admin: 11/10/24 22:07 Dose: 1 drop Saliva Substitute (Dry Mouth [place] 60 Ml [place]) 1 spray MUCOUS MEM Q2H PRN PRN Reason: dry mouth Last Admin: 11/11/24 08:33 Dose: 1 spray Saliva Substitute (Dry Mouth [place] 60 Ml [place]) 1 spray MUCOUS MEM Q2H PRN PRN Reason: Dry Mouth Trazodone HCl (Trazodone Hcl 50 Mg Tablet) 50 mg PO BEDTIME MRX1 PRN PRN Reason: Insomnia Allergies Allergies Allergy/AdvReac Type Severity Reaction Status Date / Time No Known Allergies Allergy Verified 07/17/23 15:13 Assessment & Plan Assessment & Plan (1) MDD (major depressive disorder), recurrent episode, moderate: Status: Acute Code(s): F33.1 - Major depressive disorder, recurrent, moderate (2) OCD (obsessive compulsive disorder): Status: Acute Code(s): F42.9 - Obsessive-compulsive disorder, unspecified Assessment and Plan: 11/06/24- Increase anafranil to 100 mg hs Increase olanzapine to 3.75 mg bid urine culture, urine for bv, ctng 11/08- Monitor incontinence Pt asking for discharge on 11/12/24 11/09/2024: Reports some small improvements and panic and OCD symptoms. Reports having sleeping a lot for example did not remember sleeping through breakfast. Also reports some urinary incontinence and unsure if excess sleep and incontinence is medication related- Was on Klonopin same dose prior to admission, clomipramine and olanzapine increased since will discuss regimen options with patient tomorrow. 11/10: Ref sleep and urinary incontinence at night- attributes this to olanzapine (was not on same pre admission) and wants to stop same- refused this last night and today so will formally DC and track OCD/mood symptoms. 11/11: no changes (3) PTSD (post-traumatic stress disorder): Status: Acute Code(s): F43.10 - Post-traumatic stress disorder, unspecified (4) Panic disorder: Status: Acute Code(s): F41.0 - Panic disorder [episodic paroxysmal anxiety] Plan 51-year-old female with a past medical history of anxiety, depression, PTSD, OCD, tobacco use and recent gallbladder surgery, hosptialist consult placed for ?conjuncitivitis. possible allergic conjunctivitis - no evidence of bacterial or viral conjunctivitis - pt rubs eyes often, could be allergic but sclera and conjunctiva appear normal - suggested she only wipe eyes with a clean, warm washcloth PRN - will try lubricating gtts - f/u with opthalmologist outpt Thank you for allowing me to participate in the pt's care. Signing off. Please contact the medical team if any questions or concerns. Reason for continued inpatient stay Substantial Risk for: inability to function and rapid decompensation Time Spent With Patient Time: Total time managing care of this patient today ____ minutes.
[2024-11-11 20:00] VITALS: BP 107/56; PULSE 73; RESP 16; TEMP 36.4; O2SAT 99
[2024-11-11] MEDS: Carbamide Peroxide 6.5% Otic 15 ML DRPBTL 5 DROP EAR-BOTH (20:44)
[2024-11-11] MEDS: Propylene Glycol/PEG 400 Gel Eye Drops 10ML 1 DROP EYE-BOTH (20:44)
--- NOTE | 2024-11-12 03:21 | PC.NURSE ---
Patient mentioned that she would like for her nicotine patch to be scheduled. She said That way I don't have to remember to ask for it.
[2024-11-12 08:00] VITALS: BP 106/53; PULSE 73; TEMP 36.4; O2SAT 96
[2024-11-12] MEDS: Nicotine 21 MG PATCH.TD24 TRANSDERMA (09:08)
[2024-11-12] MEDS: Dry Mouth Spray 60 ML SPRAY 1 SPRAY MUCOUS MEM (09:10)
[2024-11-12] MEDS: Carbamide Peroxide 6.5% Otic 15 ML DRPBTL 5 DROP EAR-BOTH ×2 (09:12→21:41)
--- NOTE | 2024-11-12 09:39 | HO.PSYCHPN ---
Subjective Subjective Date of Service: 11/12/24 Reason For Visit: Unspecified Depressive disorder, OCD Subjective Notes: Conditional Voluntary Healthcare Proxy: No Guardianship: No Medical Problems Affecting Mental Status: No Interim History: Engaging in rituals today. It is worse. Incontinence still present as it was on admit. Reports increase due to Klonopin, Olanzapine and increase in Anafranil. Urology recommendations pt will not accept, she will work with her own urologist. Today reports she does not feel prepared for discharge, however has disabled her plan over the weekend. Discharge pending, pt expressing anger 11/10, needing prn Olanzapine. 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) Attending Groups: No Review of Systems Acute medical concerns: No Medical Review of Systems: unchanged Review of Systems Review of Systems urinary incontinence Mental Status Exam Mental Status Exam Patient Appearance: Fatigued and Malodorous Patient Orientation: Person, Place, Time and Situation Level of Consciousness: Alert Patient Behavior: Anxious, Resistive to Care, Avoidant, Fatigued, Distractible and Good Eye Contact Mood Description: Constricted Affect Description: Constricted Patient Cognition Impaired: No Ability to Follow Directions: Fair Speech Pattern: Spontaneous Speech Memory Description: Episodic Impaired Hallucinations: None Delusions: Not Present Thought Process: Distracted Thought Content: positive for Obsessional Thoughts, positive for Circumstantial, positive for Perseveration, positive for Preoccupation and positive for Suicidal Ideation (denies) Judgement: Fair Diagnostics Vital Signs (24Hr): Vital Signs - 24 hr 11/11/24 20:00 11/12/24 08:00 Temperature 97.6 F 97.5 F Pulse Rate 73 73 Respiratory Rate 16 Blood Pressure 107/56 L 106/53 L Pulse Oximetry 99 96 Oxygen Delivery Method Room Air Room Air BMI result Body Mass Index 18.9 Medications Medications Current Medications Acetaminophen (Acetaminophen 325 Mg Tablet) 650 mg PO Q6H PRN PRN Reason: Headache/Pain, Scale 1-10 Al Hydroxide/Mg Hydroxide (Magnesium Hydrox/Alum Hydrox 30 Ml Oral.Susp) 30 ml PO Q6H PRN PRN Reason: Heartburn/Nausea Carbamide Peroxide (Carbamide Peroxide 6.5% Otic 15 Ml Drpbtl) 5 drop EAR-BOTH BID KIMI Stop: 11/14/24 18:06 Last Admin: 11/12/24 09:12 Dose: 5 drop Clomipramine HCl (Clomipramine Hcl 25 Mg Capsule) 100 mg PO BEDTIME KIMI Last Admin: 11/11/24 20:43 Dose: 100 mg Clonazepam (Clonazepam 1 Mg Tablet) 1 mg PO TID PRN PRN Reason: severe anxiety Last Admin: 11/12/24 09:09 Dose: 1 mg Hydroxyzine HCl (Hydroxyzine Hcl 25 Mg Tablet) 25 mg PO Q6H PRN PRN Reason: mild anxiety Last Admin: 10/19/24 11:01 Dose: 25 mg Loperamide HCl (Loperamide Hcl 2 Mg Capsule) 4 mg PO Q6H PRN PRN Reason: loose stool Last Admin: 10/25/24 15:42 Dose: 4 mg Magnesium Hydroxide (Milk Of Magnesia 30 Ml Oral.Susp) 30 ml PO DAILY PRN PRN Reason: Constipation Metronidazole (Metronidazole 500 Mg Tablet) 500 mg PO BID KIMI Stop: 11/15/24 21:01 Last Admin: 11/12/24 09:09 Dose: 500 mg Nicotine (Nicotine 21 Mg Patch.Td24) 21 mg TRANSDERMA DAILY PRN PRN Reason: smoking cessation Last Admin: 11/12/24 09:08 Dose: 21 mg Nicotine Polacrilex (Nicotine Polacrilex 2 Mg Gum) 4 mg BUCCAL Q2H PRN PRN Reason: Nicotine Cravings Olanzapine (Olanzapine 5 Mg Tablet) 5 mg PO Q4H PRN PRN Reason: agitation,dissociation Last Admin: 11/11/24 20:43 Dose: 5 mg Polyethyl Glycol/Propylene Glycol (Propylene Glycol/Peg 400 Gel Eye Drops 10ml) 1 drop EYE-BOTH BEDTIME KIMI Last Admin: 11/11/24 20:44 Dose: 1 drop Saliva Substitute (Dry Mouth [place] 60 Ml [place]) 1 spray MUCOUS MEM Q2H PRN PRN Reason: dry mouth Last Admin: 11/12/24 09:10 Dose: 1 spray Saliva Substitute (Dry Mouth [place] 60 Ml [place]) 1 spray MUCOUS MEM Q2H PRN PRN Reason: Dry Mouth Trazodone HCl (Trazodone Hcl 50 Mg Tablet) 50 mg PO BEDTIME MRX1 PRN PRN Reason: Insomnia Allergies Allergies Allergy/AdvReac Type Severity Reaction Status Date / Time No Known Allergies Allergy Verified 07/17/23 15:13 Assessment & Plan Assessment & Plan (1) MDD (major depressive disorder), recurrent episode, moderate: Status: Acute Code(s): F33.1 - Major depressive disorder, recurrent, moderate (2) OCD (obsessive compulsive disorder): Status: Acute Code(s): F42.9 - Obsessive-compulsive disorder, unspecified Assessment and Plan: 11/06/24- Increase anafranil to 100 mg hs Increase olanzapine to 3.75 mg bid urine culture, urine for bv, ctng 11/08- Monitor incontinence Pt asking for discharge on 11/12/24 11/09/2024: Reports some small improvements and panic and OCD symptoms. Reports having sleeping a lot for example did not remember sleeping through breakfast. Also reports some urinary incontinence and unsure if excess sleep and incontinence is medication related- Was on Klonopin same dose prior to admission, clomipramine and olanzapine increased since will discuss regimen options with patient tomorrow. 11/10: Ref sleep and urinary incontinence at night- attributes this to olanzapine (was not on same pre admission) and wants to stop same- refused this last night and today so will formally DC and track OCD/mood symptoms. 11/11: no changes 11/12: sx increased today per pt report. Ambivalent regarding discharge scheduled for 11/13. declines medication changes. (3) PTSD (post-traumatic stress disorder): Status: Acute Code(s): F43.10 - Post-traumatic stress disorder, unspecified (4) Panic disorder: Status: Acute Code(s): F41.0 - Panic disorder [episodic paroxysmal anxiety] Plan 51-year-old female with a past medical history of anxiety, depression, PTSD, OCD, tobacco use and recent gallbladder surgery, hosptialist consult placed for ?conjuncitivitis. possible allergic conjunctivitis - no evidence of bacterial or viral conjunctivitis - pt rubs eyes often, could be allergic but sclera and conjunctiva appear normal - suggested she only wipe eyes with a clean, warm washcloth PRN - will try lubricating gtts - f/u with opthalmologist outpt Thank you for allowing me to participate in the pt's care. Signing off. Please contact the medical team if any questions or concerns. Reason for continued inpatient stay Substantial Risk for: rapid decompensation and med/psych decompensation Time Spent With Patient Time: Total time managing care of this patient today ____ minutes.
[2024-11-12 20:00] VITALS: BP 111/61; PULSE 91; RESP 16; TEMP 36.4; O2SAT 96
[2024-11-12] MEDS: Propylene Glycol/PEG 400 Gel Eye Drops 10ML 1 DROP EYE-BOTH (21:41)
[2024-11-13 08:00] VITALS: BP 107/57; PULSE 76; TEMP 36.9; O2SAT 96
[2024-11-13] MEDS: Nicotine 21 MG PATCH.TD24 TRANSDERMA (08:54)
[2024-11-13] MEDS: Carbamide Peroxide 6.5% Otic 15 ML DRPBTL 5 DROP EAR-BOTH (08:57)
[2024-11-13] MEDS: Dry Mouth Spray 60 ML SPRAY 1 SPRAY MUCOUS MEM (08:57)
--- NOTE | 2024-11-13 09:47 | P.PNPSI_ITS ---
Subjective Subjective Reason For Visit: Unspecified Depressive disorder, OCD Diagnostics Vital Signs (24Hr): Vital Signs - 24 hr 11/12/24 20:00 11/13/24 08:00 Temperature 97.6 F 98.4 F Pulse Rate 91 76 Respiratory Rate 16 Blood Pressure 111/61 107/57 L Pulse Oximetry 96 96 Oxygen Delivery Method Room Air Room Air BMI result Body Mass Index 18.9 Medications Medications Current Medications Acetaminophen (Acetaminophen 325 Mg Tablet) 650 mg PO Q6H PRN PRN Reason: Headache/Pain, Scale 1-10 Al Hydroxide/Mg Hydroxide (Magnesium Hydrox/Alum Hydrox 30 Ml Oral.Susp) 30 ml PO Q6H PRN PRN Reason: Heartburn/Nausea Carbamide Peroxide (Carbamide Peroxide 6.5% Otic 15 Ml Drpbtl) 5 drop EAR-BOTH BID [facility] Stop: 11/14/24 18:06 Last Admin: 11/13/24 08:57 Dose: 5 drop Clomipramine HCl (Clomipramine Hcl 25 Mg Capsule) 100 mg PO BEDTIME [facility] Last Admin: 11/12/24 21:41 Dose: 100 mg Clonazepam (Clonazepam 1 Mg Tablet) 1 mg PO TID PRN PRN Reason: severe anxiety Last Admin: 11/13/24 08:56 Dose: 1 mg Hydroxyzine HCl (Hydroxyzine Hcl 25 Mg Tablet) 25 mg PO Q6H PRN PRN Reason: mild anxiety Last Admin: 10/19/24 11:01 Dose: 25 mg Loperamide HCl (Loperamide Hcl 2 Mg Capsule) 4 mg PO Q6H PRN PRN Reason: loose stool Last Admin: 10/25/24 15:42 Dose: 4 mg Magnesium Hydroxide (Milk Of Magnesia 30 Ml Oral.Susp) 30 ml PO DAILY PRN PRN Reason: Constipation Metronidazole (Metronidazole 500 Mg Tablet) 500 mg PO BID KIMI Stop: 11/15/24 21:01 Last Admin: 11/13/24 08:56 Dose: 500 mg Nicotine (Nicotine 21 Mg Patch.Td24) 21 mg TRANSDERMA DAILY PRN PRN Reason: smoking cessation Last Admin: 11/13/24 08:54 Dose: 21 mg Nicotine Polacrilex (Nicotine Polacrilex 2 Mg Gum) 4 mg BUCCAL Q2H PRN PRN Reason: Nicotine Cravings Olanzapine (Olanzapine 5 Mg Tablet) 5 mg PO Q4H PRN PRN Reason: agitation,dissociation Last Admin: 11/12/24 21:49 Dose: 5 mg Polyethyl Glycol/Propylene Glycol (Propylene Glycol/Peg 400 Gel Eye Drops 10ml) 1 drop EYE-BOTH BEDTIME KIMI Last Admin: 11/12/24 21:41 Dose: 1 drop Saliva Substitute (Dry Mouth [place] 60 Ml [place]) 1 spray MUCOUS MEM Q2H PRN PRN Reason: dry mouth Last Admin: 11/13/24 08:57 Dose: 1 spray Saliva Substitute (Dry Mouth [place] 60 Ml [place]) 1 spray MUCOUS MEM Q2H PRN PRN Reason: Dry Mouth Trazodone HCl (Trazodone Hcl 50 Mg Tablet) 50 mg PO BEDTIME MRX1 PRN PRN Reason: Insomnia Allergies Allergies Allergy/AdvReac Type Severity Reaction Status Date / Time No Known Allergies Allergy Verified 07/17/23 15:13 Assessment & Plan Assessment & Plan (1) MDD (major depressive disorder), recurrent episode, moderate: Status: Acute Code(s): F33.1 - Major depressive disorder, recurrent, moderate (2) OCD (obsessive compulsive disorder): Status: Acute Code(s): F42.9 - Obsessive-compulsive disorder, unspecified Assessment and Plan: 11/06/24- Increase anafranil to 100 mg hs Increase olanzapine to 3.75 mg bid urine culture, urine for bv, ctng 11/08- Monitor incontinence Pt asking for discharge on 11/12/24 11/09/2024: Reports some small improvements and panic and OCD symptoms. Reports having sleeping a lot for example did not remember sleeping through breakfast. Also reports some urinary incontinence and unsure if excess sleep and incontinence is medication related- Was on Klonopin same dose prior to admission, clomipramine and olanzapine increased since will discuss regimen options with patient tomorrow. 11/10: Ref sleep and urinary incontinence at night- attributes this to olanzapine (was not on same pre admission) and wants to stop same- refused this last night and today so will formally DC and track OCD/mood symptoms. 11/11: no changes 11/12: sx increased today per pt report. Ambivalent regarding discharge scheduled for 11/13. declines medication changes. (3) PTSD (post-traumatic stress disorder): Status: Acute Code(s): F43.10 - Post-traumatic stress disorder, unspecified (4) Panic disorder: Status: Acute Code(s): F41.0 - Panic disorder [episodic paroxysmal anxiety] Plan 51-year-old female with a past medical history of anxiety, depression, PTSD, OCD, tobacco use and recent gallbladder surgery, hosptialist consult placed for ?conjuncitivitis. possible allergic conjunctivitis - no evidence of bacterial or viral conjunctivitis - pt rubs eyes often, could be allergic but sclera and conjunctiva appear normal - suggested she only wipe eyes with a clean, warm washcloth PRN - will try lubricating gtts - f/u with opthalmologist outpt Thank you for allowing me to participate in the pt's care. Signing off. Please contact the medical team if any questions or concerns. Time Spent With Patient Time: Total time managing care of this patient today ____ minutes.
--- NOTE | 2024-11-13 09:50 | PM.PSYDC ---
DS: Providers Provider Date of admission: 10/18/24 17:57 Primary care physician: Yadiel Quick MD Consults: 10/18/24 19:26 Consult to Hospitalist Routine Comment: Consulting Provider: [facility] Hospitalists Reason For Exam: Transfer pt 10/24/24 14:44 Consult to Psychiatry Routine Consulting Provider: Wisam Mcleod Reason for consultation: ECT- Severe OCD, Medicine intolerance Has provider been notified: No 10/25/24 16:33 Consult to Hospitalist Routine Comment: anorexia, diarrhea (severe OCD/Depression as well) Consulting Provider: [facility] [place] Hospitalists Reason For Exam: s/p lap zaida~3 weeks, missed post op visit 10/26/24 08:19 Consult to General Surgery Routine Consulting Provider: [facility] General Surgeons Reason for consultation: SP Lap Zaida 10/10/[address] Hilton Has provider been notified: Yes 10/31/24 17:08 Consult to Urology Routine Consulting Provider: [facility] Urology Services Reason for consultation: overactive [id number] interventions thus far Has provider been notified: No 11/05/24 16:59 Consult to Hospitalist Routine Comment: Consulting Provider: [facility] [place] Hospitalists Reason For Exam: Pt reporting sx of conjunctivitis DS: Diagnosis Discharge Diagnosis (1) MDD (major depressive disorder), recurrent episode, moderate: Status: Acute (2) OCD (obsessive compulsive disorder): Status: Acute (3) PTSD (post-traumatic stress disorder): Status: Acute (4) Panic disorder: Status: Acute DS: Medications Discharge Medications Home Medications: Previous Rx's ?Medication ?Instructions ?Recorded carbamide peroxide 6.5 % ear drops 5 drp otic (ears) BID #15 mL 11/13/24 (Ear Wax Removal Drops) clomipramine 50 mg capsule 100 mg (2 x 50 mg) PO BEDTIME #14 11/13/24 (Anafranil) caps clonazepam 1 mg tablet (Klonopin) 1 mg PO BID PRN anxiety #7 tabs 11/13/24 metronidazole 500 mg tablet 500 mg PO BID #6 tabs 11/13/24 nicotine 21 mg/24 hr daily 21 mg transdermal DAILY PRN 11/13/24 transdermal patch smoking cessation #30 ea peg 400-propylene glycol 0.4 %-0.3 1 drp ophthalmic (eye) BEDTIME #10 11/13/24 % eye gel drops (Systane Gel) mL Data Data Completed and Pending Completed studies during hospitalization [Text1]: 11/06/24 15:30 Chlam trachomat DNA PCR NOT DETECTED N.gonorrhoeae DNA (PCR) NOT DETECTED T. vaginalis (PCR) NOT DETECTED Bact vaginosis (PCR) POSITIVE A C. krusei/glabrata (PCR) NOT DETECTED Maribeth group (PCR) NOT DETECTED 11/08/24 12:15 Urine clean catch Urine Culture - Final DS: Summary Time Spent with Patient Time attestation: Total time managing care of this patient today ____ minutes. Discharge Plan Discharge Anticipated Discharge Date/Time: 11/13/24 12:00 Patient Disposition: Home, Self-Care Discharge Diagnosis: PTSD Panic Disorder Obsessive Compulsive Disorder Recurrent Major Depression Referrals: [facility]-Therapy with Crissy [Other] - 11/16/24 11:00 am Referral Note: Appointment is in person [facility]- Psychiatry [Other] - 12/03/24 9:00 am Referral Note: Appointment is in person with [facility] Uro[facility] with Dr. Smith [Other] - 11/15/24 3:00 pm Yadiel Quick MD [Primary Care Provider, Internal Medicine] - 1 Week Discharge Medications: New Ear Wax Removal Drops 6.5 % Drops 5 drp otic (ears) BID Qty: 15 0RF Systane Gel 0.4-0.3 % Drops,Gel 1 drp ophthalmic (eye) BEDTIME Qty: 10 0RF metronidazole 500 mg tablet 500 mg PO BID Qty: 6 0RF nicotine 21 mg/24 hr Patch 24 Hour 21 mg transdermal DAILY PRN (Reason: smoking cessation) Qty: 30 0RF clomipramine [Anafranil] 50 mg capsule 100 mg PO BEDTIME Qty: 14 4RF clonazepam [Klonopin] 1 mg tablet 1 mg PO BID PRN (Reason: anxiety) Qty: 7 4RF Discontinued clonazepam 0.5 mg tablet 0.5 mg PO BID Discharge Orders: Discharge Order (Routine); Ordered 11/13/24 Ordered By: Rashmi Polo Diet: Advance to usual diet Activity on Discharge: As tolerated Stand Alone Forms: Patient Portal Discharge page, Community Support Print Language: Chinese Care Plan Goals: Mood and Behavioral Stabilization Compliance with treatment plan Health Concerns: Mood and Behavioral Stabilization Compliance with treatment plan Plan of Treatment: Attend scheduled appointments Take medications as directed Consider [facility] [phone] Call/Return as needed Assessment: Denies SI,HI,AH,VH Willing to proceed with out patient treatment at this time.
== END 2024-11-13 13:30 | disposition home or self-care (01) | DRG 885 ==
PROVIDERS: Clinical Nurse Specialist Psychiatric/Mental Health, Adult; Admitting Provider Psychiatry & Neurology Psychiatry; PCP Internal Medicine; Visit Provider Psychiatry & Neurology Psychiatry
DX: F33.9 Major depressive disorder, recurrent, unspecified (principal); R45.851 Suicidal ideations; F41.0 Panic disorder [episodic paroxysmal anxiety]; R33.9 Retention of urine, unspecified; H10.13 Acute atopic conjunctivitis, bilateral; F42.9 Obsessive-compulsive disorder, unspecified; F43.10 Post-traumatic stress disorder, unspecified; F17.210 Nicotine dependence, cigarettes, uncomplicated; Z71.6 Tobacco abuse counseling; Z90.49 Acquired absence of other specified parts of digestive tract; Z96.82 Presence of neurostimulator; Z79.899 Other long term (current) drug therapy
CPT/HCPCS: 36415; 80061; 81515; 82607; 82746; 83036; 83735; 84439; 84443; 87086; 87491; 87591; 93005

== ENCOUNTER 2024-10-18 17:57 | Outpatient (BNV) | payer MEDICAID, SELFPAY | END 2024-10-22 18:16 | PROVIDERS: Admitting Provider Psychiatry & Neurology Psychiatry; PCP Internal Medicine; Visit Provider Internal Medicine Cardiovascular Disease | DX: R00.1 Bradycardia, unspecified (principal) | CPT/HCPCS: 93010 ==

== ENCOUNTER → 2024-10-18 17:57 | Outpatient (BNV) | payer MEDICAID, SELFPAY | PROVIDERS: Admitting Provider Psychiatry & Neurology Psychiatry; PCP Internal Medicine; Visit Provider Nurse Practitioner Family | DX: Z02.2 Encounter for examination for admission to residential institution (principal); R32 Unspecified urinary incontinence | CPT/HCPCS: 99429 ==

== ENCOUNTER → 2024-10-18 17:57 | Outpatient (BNV) | payer MEDICAID, SELFPAY | PROVIDERS: Admitting Provider Psychiatry & Neurology Psychiatry; PCP Internal Medicine; Visit Provider Surgery | DX: Z48.815 Encounter for surgical aftercare following surgery on the digestive system (principal); Z90.49 Acquired absence of other specified parts of digestive tract | CPT/HCPCS: 99222 ==

== ENCOUNTER → 2024-10-18 17:57 | Outpatient (BNV) | payer MEDICAID, SELFPAY | PROVIDERS: Admitting Provider Psychiatry & Neurology Psychiatry; PCP Internal Medicine; Visit Provider Urology | DX: R39.15 Urgency of urination (principal) | CPT/HCPCS: 99222 ==

== ENCOUNTER → 2024-10-18 17:57 | Outpatient (BNV) | payer OTHER, SELFPAY | PROVIDERS: Admitting Provider Psychiatry & Neurology Psychiatry; PCP Internal Medicine; Visit Provider Psychiatry & Neurology Psychiatry | DX: F42.9 Obsessive-compulsive disorder, unspecified (principal); F43.11 Post-traumatic stress disorder, acute; Z90.49 Acquired absence of other specified parts of digestive tract | CPT/HCPCS: 99499 ==

== ENCOUNTER → 2024-10-18 17:57 | Outpatient (BNV) | payer OTHER, SELFPAY | PROVIDERS: Admitting Provider Psychiatry & Neurology Psychiatry; PCP Internal Medicine; Visit Provider Psychiatry & Neurology Psychiatry | DX: F33.1 Major depressive disorder, recurrent, moderate (principal); R45.851 Suicidal ideations; F42.9 Obsessive-compulsive disorder, unspecified; F43.11 Post-traumatic stress disorder, acute; F41.0 Panic disorder [episodic paroxysmal anxiety] | CPT/HCPCS: 99232 ==